=== PATIENT | male | born 1930 | race Caucasian/White ===

== ENCOUNTER 2017-01-07 10:41 | Inpatient (IN) | payer MEDICAID, MEDICARE ==
[2017-01-07 10:52] VITALS: BMI 25.8
--- NOTE | 2017-01-07 11:29 | ED PDOC ---
Arrival/HPI - General Time Seen by Provider: 01/07/17 11:05 Historian: Patient - History of Present Illness Narrative History of Present Illness (Text): 01/07/17 11:24 An 86 year old male with no known past medical history, presents to the Emergency department brought in by EMS for chest pain since this morning. Nitroglycerin and Aspirin were administered prior to arrival by EMS, patient states that his symptoms have been improving. Patient states that he has also been having abdominal discomfort. The patient denies fever, chills, shortness of breath, nausea, vomiting, diarrhea, dizziness or any other complaint. Time/Duration: Other (This morning) Symptom Onset: Sudden Symptom Course: Unchanged Activities at Onset: Rest, Light Context: Home Past Medical History - Provider Review Nursing Documentation Reviewed: Yes - Psychiatric Hx Depression: No Hx Emotional Abuse: No Hx Physical Abuse: No Hx Substance Use: No - Suicidal Assessment Feels Threatened In Home Enviroment: No Family/Social History - Physician Review Nursing Documentation Reviewed: Yes Family/Social History: No Known Family HX Hx Alcohol Use: No Hx Substance Use: No Hx Substance Use Treatment: No Allergies/Home Meds Allergies/Adverse Reactions: Allergies No Known Allergies Allergy (Verified 04/18/12 12:50) Home Medications: Home Meds Medication Instructions Recorded Confirmed Unobtainable 01/07/17 01/07/17 Physical Exam - Physical Exam Narrative Physical Exam (Text): - Review of Systems Constitutional: Normal. absent: Fatigue, Weight Change, Fevers Eyes: Normal ENT: Normal Respiratory: (+) SOB. absent: Cough, Sputum Cardiovascular: Normal absent: Chest pain, Palpitations, Syncope Gastrointestinal: (+) Abdominal pain. absent: Diarrhea, Nausea, Vomiting Genitourinary: Normal. absent: Dysuria, Frequency, Hematuria Musculoskeletal: Normal. absent: Arthralgias, Back Pain, Neck Pain Skin: Normal Neurological: Normal absent: Focal Weakness Endocrine: Normal Hemo/Lymphatic: Normal Psychiatric: Normal - Physical exam Patient appears age appropriate, speaking full sentences without difficulty - Systems Exam Head: Present: Atraumatic, Normocephalic Pupils: Present: PERRL Extraocular Muscles: Present: EOMI Conjunctiva: Present: Normal Mouth: Present: Moist Mucous Membranes Neck: Present: Normal Range of Motion. No: MIDLINE TENDERNESS, Paraspinal Tenderness Respiratory/Chest: Present: Clear to Auscultation, Good Air Exchange. No: Respiratory Distress, Accessory Muscle Use, Tachypnic Cardiovascular: Present: Regular Rate and Rhythm, Normal S1, S2, Peripheral Pulses Present. No: Murmurs Abdomen: Present: Normal Bowel Sounds, No: Tenderness, Peritoneal Signs, Rebound, Guarding, Distention Back: Present: Normal Inspection. No: Midline Tenderness, Paraspinal Tenderness Upper Extremity: Present: Normal Inspection. No: Cyanosis, Edema Lower Extremity: Present: Normal Inspection. No: Edema Neurological: Present: GCS=15, Speech Normal, cranial nerves II through XII fully intact with no cerebellar abnormality, neuro-sensory fully intact. No focal neurological deficits. Skin: Present: Warm, Dry, Normal Color. No: Rashes Lymphatic: Present: OX3, NI, NC Psychiatric: Present: Alert, Oriented x 3, Normal Insight, Normal Concentration 01/07/17 11:30 Vital Signs Reviewed: Yes Vital Signs Temp Pulse Pulse Resp BP BP Pulse Ox 01/07/17 13:12 172/93 H 01/07/17 12:49 71 17 172/93 H 96 01/07/17 11:38 67 157/88 H 01/07/17 11:05 99.3 F 73 17 154/83 H 96 Temperature: Afebrile Blood Pressure: Hypertensive Pulse: Regular Respiratory Rate: Normal Medical Decision Making ED Course and Treatment: 01/07/17 11:31 Impression: An 86 year old male brought in via EMS for shortness of breath since this morning and headache. On exam, no significant findings. Differential Diagnosis included but are not limited to: ACS vs. PNA Plan: -- Abdomen/Pelvis CT -- EKG -- Chest X-ray -- Labs -- Urinalysis -- Blood Culture -- Tylenol, Nitrostat, Duoneb, Lasix, Protonix, Rocephin, and Zithromax -- Reassess and disposition Prior Visits: Notes and results from previous visits were reviewed. Patient was last seen in the emergency department in 2011 for a fall Progress Notes: EKG: Ordered, reviewed, and independently interpreted the EKG. Rate : 70 BPM Rhythm : NSR Interpretation : PVCs 01/07/17 12:19 Chest X-ray: Cardiomegaly, vascular congestion, and poorly visualized costophrenic angles. Interpreted by me. 01/07/17 12:23: Case discussed with Dr. Patton who is on service. He asked for patient to be admitted to the hospitalist. 01/07/17 13:[address] Grzegorz Sawyer, accepted admission to [facility], chest pain and PNA CXR [employer] Director : Yvette Jorge MD HISTORY: Cough COMPARISON: 04/18/2012. FINDINGS: LUNGS: There is confluent airspace disease in both lower lobes. There is also mild pulmonary venous congestion. PLEURA: There are small pleural effusions. No pneumothorax. CARDIOVASCULAR: Normal. OSSEOUS STRUCTURES: No significant abnormalities. VISUALIZED UPPER ABDOMEN: Normal. OTHER FINDINGS: None. IMPRESSION: Findings are most compatible with bilateral lower lobe pneumonia. Also noted are small pleural effusions. Follow-up after medical management is recommended to ensure complete resolution. - Lab Interpretations Lab Results: 01/07/17 11:36 01/07/17 11:36 Lab Results 01/07/17 12:42: NT-Pro-B Natriuret Pep 941 H 01/07/17 11:36: Sodium 138, Potassium 4.3, Chloride 103, Carbon Dioxide 24, Anion Gap 15, BUN 17, Creatinine 1.3, Est GFR ( Amer) > 60, Est GFR (Non- Af Amer) 52, Random Glucose 103, Calcium 9.2, Total Bilirubin 0.5, AST 24, ALT 22, Alkaline Phosphatase 84, Lactate Dehydrogenase 222 L, Total Creatine Kinase 38, Troponin I < 0.01, Total Protein 8.0, Albumin 3.7, Globulin 4.3, Albumin/ Globulin Ratio 0.9 L 01/07/17 11:36: PT 11.8, INR 1.09 H, APTT 29.1 01/07/17 11:36: WBC 5.0, RBC 3.88, Hgb 11.3 L, Hct 34.8 L, MCV 89.7, MCH 29.1, MCHC 32.5, RDW 13.7, Plt Count 301, MPV 9.6, Gran % 52.5, Lymph % (Auto) 31.1, Bell % (Auto) 12.6 H, Eos % (Auto) 3.2, Baso % (Auto) 0.6, Gran # 2.62, Lymph # 1.6, Bell # 0.6, Eos # 0.2, Baso # 0.03 - RAD Interpretation Radiology Orders: 01/07/17 11:08 CHEST PORTABLE [RAD] Stat 01/07/17 11:28 ABD & PELVIS W/O PO OR IV CONT [CT] Stat - Medication Orders Current Medication Orders: Azithromycin (Zithromax 500mg In Ns) 500 mg in 250 mls @ 167 mls/hr IVPB STAT STA PRN Reason: Protocol Stop: 01/07/17 14:40 Pantoprazole Sodium (Protonix Ec Tab) 40 mg PO 0600,1600 JEMAL Discontinued Medications Acetaminophen (Tylenol 325mg Tab) 975 mg PO STAT STA Stop: 01/07/17 11:27 Last Admin: 01/07/17 12:37 Dose: 975 mg Albuterol/Ipratropium (Duoneb 3 Mg/0.5 Mg (3 Ml) Ud) 3 ml IH STAT STA Stop: 01/07/17 13:13 Last Admin: 01/07/17 13:54 Dose: 3 ml Furosemide (Lasix) 20 mg IVP STAT STA Stop: 01/07/17 12:19 Last Admin: 01/07/17 13:12 Dose: 20 mg Ceftriaxone Sodium (Rocephin 1 Gram Ivpb) 1 gm in 100 mls @ 200 mls/hr IV STAT STA PRN Reason: Protocol Stop: 01/07/17 13:40 Last Admin: 01/07/17 13:54 Dose: 200 mls/hr - Scribe Statement The provider has reviewed the documentation as recorded by the Annettaibe Zuleika Tolbert Provider Scribe Attestation: All medical record entries made by the Scribe were at my direction and personally dictated by me. I have reviewed the chart and agree that the record accurately reflects my personal performance of the history, physical exam, medical decision making, and the department course for this patient. I have also personally directed, reviewed, and agree with the discharge instructions and disposition. Disposition/Present on Arrival - Present on Arrival Any Indicators Present on Arrival: No History of DVT/PE: No History of Uncontrolled Diabetes: No Urinary Catheter: No History Surgical Site Infection Following: None - Disposition Have Diagnosis and Disposition been Completed?: Yes Diagnosis: Chest pain Disposition: HOSPITALIZED Disposition Time: 13:32 Patient Plan: Admission Patient Problems: Current Active Problems Problem Status Onset Chest pain Acute Condition: FAIR
[2017-01-07 11:40] LABS: BASO # 0.03 K/mm3 (0.0-2.0); BASO % 0.6 % (0.0-3.0); EOS # 0.2 (0.0-0.7); EOS % 3.2 % (1.5-5.0); GRAN # 2.62 (1.4-6.5); GRAN % 52.5 % (50.0-68.0); HEMATOCRIT 34.8 % (42.0-52.0); LYMPH # 1.6 (1.2-3.4); LYMPH % 31.1 % (22.0-35.0); MEAN CELL VOLUME 89.7 fl (80.0-105.0); MEAN CORPUSCULAR HEMOGLOBIN 29.1 pg (25.0-35.0); MEAN CORPUSCULAR HGB CONC 32.5 g/dl (31.0-37.0); MEAN PLATELET VOLUME 9.6 fl (7.0-11.0); MONO # 0.6 (0.1-0.6); MONO % 12.6 % (1.0-6.0); RED CELL DISTRIBUTION WIDTH 13.7 % (11.5-14.5)
[2017-01-07 11:50] LABS: ALB/GLOB RATIO 0.9 (1.1-1.8); ALKALINE PHOSPHATASE 84 U/L (38-133); ALT/SGPT 22 U/L (7-56); AST/SGOT 24 U/L (15-59); BILIRUBIN,TOTAL 0.5 mg/dL (0.2-1.3); BLOOD UREA NITROGEN 17 mg/dL (7-21); CALCIUM 9.2 mg/dL (8.4-10.5); CARBON DIOXIDE 24 mmol/L (21-33); CHLORIDE 103 mmol/L (98-107); GFR AFRICAN-AMERICAN > 60; GLUCOSE,RANDOM 103 mg/dL (70-110); POTASSIUM 4.3 mmol/L (3.6-5.0); SODIUM 138 mmol/L (132-148)
[2017-01-07 11:51] LABS: INR 1.09 (0.93-1.08); PARTIAL THROMBOPLASTIN TIME 29.1 Seconds (23.7-30.8)
[2017-01-07 12:03] LABS: TROPONIN I < 0.01 ng/mL
--- NOTE | 2017-01-07 12:27 | CT ---
PROCEDURE: CT Abdomen and Pelvis without intravenous contrast HISTORY: Abdominal pain COMPARISON: None. TECHNIQUE: CT scan of the abdomen and pelvis was performed without administration of intravenous contrast. Oral contrast was not administered. Coronal and sagittal reformatted images were obtained. Radiation dose: Total exam DLP = 981.88 mGy-cm. This CT exam was performed using one or more of the following dose reduction techniques: Automated exposure control, adjustment of the mA and/or kV according to patient size, and/or use of iterative reconstruction technique. FINDINGS: LOWER THORAX: There is extensive bronchiectasis in the lower lobes. LIVER: The liver is normal in size. No gross lesion or ductal dilatation. GALLBLADDER AND BILE DUCTS: There are no calcified gallstones. PANCREAS: The pancreas is normal in size. No gross lesion or ductal dilatation. SPLEEN: The spleen is normal in size. ADRENALS: Both adrenal glands are normal in size without discrete nodule. KIDNEYS AND URETERS: Both kidneys are normal in size. No hydronephrosis. No solid mass. There are multiple simple cysts in both kidneys, the largest exophytic cyst in the left upper pole measures 5.9 cm. VASCULATURE: There are atherosclerotic aortoiliac calcifications. No aortic aneurysm. BOWEL: The small bowel loops are normal in caliber. There is scattered colonic diverticulosis without CT evidence for acute diverticulitis. There is no bowel dilatation or obstruction. APPENDIX: Normal appendix. PERITONEUM: No free fluid. No free air. LYMPH NODES: No enlarged lymph nodes. BLADDER: The urinary bladder is well distended. There is 1.8 x 0.7 cm focal wall thickening along the left anterior lateral bladder wall. REPRODUCTIVE: There is mild enlargement of the prostate gland with median lobe hypertrophy. BONES: There is diffuse bone demineralization and advanced multilevel degenerative disc disease. There is a chronic superior endplate compression fracture deformity in the L1 vertebral body. OTHER FINDINGS: There is a small sliding hiatal hernia. IMPRESSION: 1. No acute abdominal or pelvic abnormality. Scattered colonic diverticulosis without CT evidence for acute diverticulitis. 2. 1.8 x 0.7 cm focal thickening of left anterior lateral urinary bladder wall is nonspecific, the differential considerations include neoplasm and focal cystitis. Cystoscopic correlation is advised. 3. Small sliding hiatal hernia. 4. Mild enlargement of the prostate gland with median lobe hypertrophy. Please correlate with PSA levels. 5. Extensive bronchiectasis in both lower lobes.
--- NOTE | 2017-01-07 12:43 | RAD ---
HISTORY: Cough COMPARISON: 04/18/2012. FINDINGS: LUNGS: There is confluent airspace disease in both lower lobes. There is also mild pulmonary venous congestion. PLEURA: There are small pleural effusions. No pneumothorax. CARDIOVASCULAR: Normal. OSSEOUS STRUCTURES: No significant abnormalities. VISUALIZED UPPER ABDOMEN: Normal. OTHER FINDINGS: None. IMPRESSION: Findings are most compatible with bilateral lower lobe pneumonia. Also noted are small pleural effusions. Follow-up after medical management is recommended to ensure complete resolution.
[2017-01-07] MEDS ORDERED: cefTRIAXone 1 gm 1 GM/100 ML BAG IV STA (13:11)
[2017-01-07] MEDS ORDERED: Azithromycin 500MG/NS 250ml 500 MG/250 ML BAG IVPB STA (13:11)
[2017-01-07] MEDS ORDERED: Albuterol-Ipratrop 3 mg / 0.5 (3 ml) UD IH STA (13:12)
[2017-01-07] MEDS ORDERED: Albuterol-Ipratrop 3 mg / 0.5 (3 ml) UD IH PRN (15:10)
[2017-01-07] MEDS: cefTRIAXone 1 gm 1 GM/100 ML BAG IVPB SCH (15:19)
[2017-01-07] MEDS: Azithromycin 500MG/NS 250ml 500 MG/250 ML BAG IVPB SCH (15:19)
--- NOTE | 2017-01-07 15:31 | CARD ---
APPROVED REPORT EKG Measurement Heart [id number] <Conclusion> Sinus rhythm with frequent premature ventricular complexes Possible Left atrial enlargement Borderline ECG
--- NOTE | 2017-01-07 15:32 | CP.PCM.HP ---
<SINDY TEE - Last Filed: 01/07/17 16:15> History of Present Illness - History of Present Illness History of Present Illness: CC: Stomach "burning" HPI: Mr. Vyas is an 86 year old [place] male with a past medical history of HTN and an umbilical hernia who presented the [facility] complaining of stomach "burning" for one weeks duration. He states that the burning sensation is intermittent with no radiation but is worse at night and has been preventing him from sleeping. He reports that it is not related to positional changes, eating or certain types of food. He denies any associated fever, chills, N/V, or diarrhea. Patient also endorses that he has had a productive cough of yellow phlegm for "years" that he reports is unchanged and unrelated to his chief complaint. He also endorses that he has had burning with urination and difficulty in stopping/starting his urinary stream for several years as well and , again, that this is unrelated to his chief complaint. He denies headache, changes in his vision, shortness of breath, pleurisy, chest pain, palpitations, numbness/tingling/weakness of any extremity and any new rash. In the ED, a chest x-ray showed bilateral lower lobe consilidation consistent with pneumonia as well as vascular congestion, an EKG showed NSR at 70 bpm with occasional PVC' s and a CT abdomen/pelvis showed an enlarged prostate and scattered diverticulosis without signs of diverticulitis. PMH: HTN and COPD PSH: Umbilical Hernia Repair Family: Denies Social: At least 20 year pack smoking history but quit 40 years ago, denies alcohol or illicit drug use, lives at home with his Allergies: NKDA Home Medications: As per MAR Present on Admission - Present on Admission Any Indicators Present on Admission: No Review of Systems - Review of Systems Review of Systems: Please refer to HPI Past Patient History - Past Social History Smoking Status: Unknown If Ever Smoked - CARDIAC Hx Cardiac Disorders: Yes Hx Hypertension: Yes - PULMONARY Hx Respiratory Disorders: No - NEUROLOGICAL Hx Neurological Disorder: No - HEENT Hx HEENT Problems: No - RENAL Hx Chronic Kidney Disease: No - ENDOCRINE/METABOLIC Hx Endocrine Disorders: Yes Hx Diabetes Mellitus Type 2: Yes - HEMATOLOGICAL/ONCOLOGICAL Hx Blood Disorders: No - INTEGUMENTARY Hx Dermatological Problems: No - MUSCULOSKELETAL/RHEUMATOLOGICAL Hx Musculoskeletal Disorders: No - GASTROINTESTINAL Hx Gastrointestinal Disorders: No - GENITOURINARY/GYNECOLOGICAL Hx Genitourinary Disorders: No - PSYCHIATRIC Hx Depression: No Hx Emotional Abuse: No Hx Physical Abuse: No Hx Substance Use: No - SURGICAL HISTORY Hx Surgeries: No - ANESTHESIA Hx Anesthesia: No Meds Home Medications: Home Medication List Medication Instructions Recorded Confirmed Type Albuterol/Ipratropium [Duoneb 3 3 ml IH [id number] 01/10/17 Rx mg/0.5 mg (3 ml) UD] Azithromycin [Zithromax] 250 mg PO DAILY #4 tab 01/10/17 Rx Azithromycin [Zithromax] 500 mg PO DAILY #1 tab 01/10/17 Rx Cefpodoxime [Vantin] 200 mg PO BID #20 tab 01/10/17 Rx Dicyclomine [Dicyclomine HCl] 10 mg PO DAILY #7 cap 01/10/17 Rx PrednisoLONE [PrednisoLONE Oral 20 mg PO DAILY #14 dose 01/10/17 Rx Soln] amLODIPine [Norvasc] 5 mg PO DAILY #14 tab 01/10/17 Rx Allergies/Adverse Reactions: Allergies Allergy/AdvReac Type Severity Reaction Status Date / Time No Known Allergies Allergy Verified 04/18/12 12:50 Physical Exam - Constitutional Appears: Non-toxic, No Acute Distress - Head Exam Head Exam: ATRAUMATIC, NORMOCEPHALIC - Eye Exam Eye Exam: EOMI, PERRL - ENT Exam ENT Exam: Mucous Membranes Moist, Normal Exam, Normal Oropharynx - Neck Exam Neck exam: Positive for: Full Rom, Normal Inspection. Negative for: Lymphadenopathy, Tenderness - Respiratory Exam Respiratory Exam: Rales, NORMAL BREATHING PATTERN. absent: Clear to Auscultation Bilateral, Prolonged Expiratory Phase, Rhonchi, Wheezes, Respiratory Distress, Stridor Additional comments: Bilateral rales in lower lobes - Cardiovascular Exam Cardiovascular Exam: REGULAR RHYTHM, RRR, +S1, +S2. absent: Tachycardia, Systolic Murmur - GI/Abdominal Exam GI & Abdominal Exam: Normal Bowel Sounds, Soft. absent: Diminished Bowel Sounds , Distended, Firm, Guarding, Tenderness - Exam Exam: absent: Bladder Distension - Extremities Exam Extremities exam: Positive for: normal capillary refill, normal inspection, pedal pulses present. Negative for: calf tenderness, pedal edema - Back Exam Back exam: NORMAL INSPECTION. absent: CVA tenderness (L), CVA tenderness (R), paraspinal tenderness, rash noted, tenderness, vertebral tenderness - Neurological Exam Neurological exam: Alert, Oriented x3 - Psychiatric Exam Psychiatric exam: Normal Affect, Normal Mood - Skin Skin Exam: Dry, Intact, Normal Color, Warm Results - Vital Signs Recent Vital Signs: Last Vital Signs Temp 99.3 F 01/07/17 11:05 Pulse 71 01/07/17 12:49 Resp 17 01/07/17 12:49 BP 172/93 H 01/07/17 13:12 Pulse Ox 96 01/07/17 12:49 - Labs Result Diagrams: 01/07/17 11:36 01/07/17 11:36 - EKG Data EKG Interpreted by: Myself EKG shows normal: Sinus rhythm Rate: Normal Assessment & Plan - Assessment and Plan (Free Text) Assessment: 86 year old [place] male with a past medical history of HTN and an umbilical hernia who presented the [facility] complaining of stomach "burning" for one weeks duration Plan: 1. Community Acquired Pneumonia -Chest X-Ray showed bilateral lower lobe pneumonia and small pleural effusions -CT abdomen/pelvis showed extensive bronchiectasis in bilateral lower lobes -started on Rocephin and Zithromax (Day 1) -Robitussin Q4H PRN for cough -Duonebs Q2H PRN for dyspnea -Tylenol 650mg Q6H PRN for fever over 100.4 -Procal, blood and sputum cultures pending -Afebrile, normotensive, non-tachycardic with no leukocytosis on admission -will continue to monitor for leukocytosis with daily CBC's 2. Chest Pain -EKG showed NSR at 70 BPM with occasional PVC's -three serial troponins ordered with the first being negative -repeat EKG in the morning and ECHO pending -heart healthy diet -A1C and TSH pending -PT/OT evaluation and treatment -placed on telemetry monitoring 3. Enlarged Prostate -CT abdomen/pelvis showed focal thickening of the anterior bladder wall and mild enlargement of median lobe of prostate gland -PSA pending -will recommend outpatient urology follow upon discharge 4. HTN -Hydralazine 10mg IV PRN Q6H for SBP over 170mmHG -continue to monitor with Q8H Vital Signs 5. GI/DVT Prophylaxis -Protonix/scd's Patient seen and case discussed with attending, Dr. Grzegorz Sawyer. - Date & Time Date: 01/07/17 Time: 15:36 Decision To Admit - Pt Status Changed To: Hospital Disposition Of: Inpatient Admission - Admit Certification Admit to Inpatient:: After my assessment, the patient will require hospitalization for at least two midnights. This is because of the severity of symptoms shown, intensity of services needed, and/or the medical risk in this patient being treated as an outpatient. - . Bed Request Type: Telemetry <Grzegorz Sawyer - Last Filed: 01/10/17 18:10> Results - Vital Signs Recent Vital Signs: Last Vital Signs Temp 98 F 01/10/17 16:00 Pulse 89 01/10/17 16:00 Resp 20 01/10/17 16:00 BP 126/84 01/10/17 16:00 Pulse Ox 97 01/10/17 16:00 - Labs Result Diagrams: 01/10/17 06:30 01/10/17 06:30 Labs: Laboratory Results - last 24 hr 01/10/17 01/10/17 01/10/17 06:30 06:30 07:08 WBC 6.3 RBC 3.92 Hgb 11.2 L Hct 35.6 L MCV 90.8 MCH 28.6 MCHC 31.5 RDW 14.0 Plt Count 278 MPV 9.5 Gran % 43.2 L Lymph % (Auto) 34.9 Starke % (Auto) 14.5 H Eos % (Auto) 7.1 H Baso % (Auto) 0.3 Gran # 2.74 Lymph # 2.2 Starke # 0.9 H Eos # 0.5 Baso # 0.02 Sodium 140 Potassium 4.1 Chloride 102 Carbon Dioxide 28 Anion Gap 14 BUN 23 H Creatinine 1.6 H Est GFR ( Amer) 50 Est GFR (Non-Af Amer) 41 POC Glucose (mg/dL) 97 Random Glucose 104 Calcium 8.8 Total Bilirubin 0.4 AST 28 ALT 21 Alkaline Phosphatase 72 Total Protein 7.7 Albumin 3.6 Globulin 4.1 Albumin/Globulin Ratio 0.9 L 01/10/17 01/10/17 11:13 16:18 WBC RBC Hgb Hct MCV MCH MCHC RDW Plt Count MPV Gran % Lymph % (Auto) Starke % (Auto) Eos % (Auto) Baso % (Auto) Gran # Lymph # Starke # Eos # Baso # Sodium Potassium Chloride Carbon Dioxide Anion Gap BUN Creatinine Est GFR ( Amer) Est GFR (Non-Af Amer) POC Glucose (mg/dL) 118 H 120 H Random Glucose Calcium Total Bilirubin AST ALT Alkaline Phosphatase Total Protein Albumin Globulin Albumin/Globulin Ratio Attending/Attestation - Attestation I have personally seen and examined this patient.: Yes I have fully participated in the care of the patient.: Yes I have reviewed all pertinent clinical information: Yes Notes (Text): I have seen and examined the patient at bedside. Agree with the above note with the following additions/ exceptions: Briefly this is 86 year old male with history of HTN, COPD, umbilical hernia repair who presented with chest pain and found to have CAP. Will start patient on Rocephin and zithro. Also has chest pain. Will monitor serial cardiac iso and ekg. CT also revealed prostate enlargement. Patient denies any BPH symptoms. Will recommend outpatient urology follow up. Upon discharge patient will follow up with PMD of choice. Dr Grzegorz Sawyer
[2017-01-07 15:34] LABS: THYROID STIMULATING HORMONE 2.03 mIU/mL (0.46-4.68)
[2017-01-07] MEDS: Pantoprazole 40 mg EC Tab PO SCH (16:58)
[2017-01-07 17:49] LABS: PROSTATE SPECIFIC ANTIGEN 0.6 ng/mL (0.00-2.5)
[2017-01-07 22:01] LABS: URINE BILIRUBIN NEGATIVE (NEGATIVE); URINE BLOOD TRACE-INTACT (NEGATIVE); URINE GLUCOSE (UA) NEGATIVE (NEGATIVE); URINE KETONE NEGATIVE (NEGATIVE); URINE LEUKOCYTE ESTERASE NEGATIVE Leu/uL (NEGATIVE); URINE PROTEIN NEGATIVE mg/dL (<30 mg/dL); URINE UROBILINOGEN 0.2 E.U./dL (<1 E.U./dL)
[2017-01-07 22:02] LABS: URINE APPEARANCE CLEAR (CLEAR); URINE COLOR LIGHT YELLOW (YELLOW)
[2017-01-07 22:24] LABS: URINE BACTERIA SMALL (NEG); URINE EPITHELIAL CELLS 0 - 2 /hpf (0-5); URINE WBC 0 - 2 /hpf (0-6)
[2017-01-07] MEDS ORDERED: DiphenhydrAMINE 12.5 mg/5 ml LIQ UD (5 ml) PO ONE (22:38)
[2017-01-08] MEDS: Pantoprazole 40 mg EC Tab PO SCH ×2 (05:25→15:31)
[2017-01-08 06:51] LABS: BASO # 0.02 K/mm3 (0.0-2.0); BASO % 0.2 % (0.0-3.0); EOS # 0.1 (0.0-0.7); EOS % 1.1 % (1.5-5.0); GRAN # 6.97 (1.4-6.5); GRAN % 71.1 % (50.0-68.0); HEMATOCRIT 36.3 % (42.0-52.0); LYMPH # 1.7 (1.2-3.4); LYMPH % 17.7 % (22.0-35.0); MEAN CELL VOLUME 89.4 fl (80.0-105.0); MEAN CORPUSCULAR HEMOGLOBIN 29.1 pg (25.0-35.0); MEAN CORPUSCULAR HGB CONC 32.5 g/dl (31.0-37.0); MEAN PLATELET VOLUME 9.8 fl (7.0-11.0); MONO % 9.9 % (1.0-6.0); RED CELL DISTRIBUTION WIDTH 13.9 % (11.5-14.5); WHITE BLOOD COUNT 9.8 10^3/ul (4.5-11.0)
[2017-01-08 06:52] LABS: ALB/GLOB RATIO 0.9 (1.1-1.8); BILIRUBIN,TOTAL 0.7 mg/dL (0.2-1.3); CALCIUM 9.3 mg/dL (8.4-10.5); POTASSIUM 4.4 mmol/L (3.6-5.0); TOTAL PROTEIN 8.2 g/dL (5.8-8.3)
[2017-01-08] MEDS: cefTRIAXone 1 gm 1 GM/100 ML BAG IVPB SCH (10:15)
[2017-01-08] MEDS: Azithromycin 500MG/NS 250ml 500 MG/250 ML BAG IVPB SCH (11:10)
--- NOTE | 2017-01-08 12:13 | CP.PCM.PN ---
Addendum entered and electronically signed by Laine Jameson DO 01/08/17 12:30: BUN/Cr. Elevated IVF NS 60cc/hr Addendum entered and electronically signed by Laine Jameson DO 01/08/17 12:28: Assessment: 86 year old [place] male with a past medical history of HTN and an umbilical hernia who presented [place] [facility] complaining of stomach "burning" for one weeks duration Plan: Diet: HHD 1. Community Acquired Pneumonia -Chest X-Ray showed bilateral lower lobe pneumonia and small pleural effusions -CT abdomen/pelvis showed extensive bronchiectasis in bilateral lower lobes -started on Rocephin and Zithromax (Day 1) -Robitussin Q4H PRN for cough -Duonebs Q2H PRN for dyspnea -Tylenol 650mg Q6H PRN for fever over 100.4 -Procal, blood and sputum cultures pending -Afebrile, normotensive, non-tachycardic with no leukocytosis on admission -will continue to monitor for leukocytosis with daily CBC's 2. Chest Pain, resolved -EKG showed NSR at 70 BPM with occasional PVC's -serial troponins-negative -repeat EKG in the morning and ECHO pending -heart healthy diet -A1C and TSH pending -PT/OT evaluation and treatment -placed on telemetry monitoring 01/08 f/u Echo final reading 3. Enlarged Prostate -CT abdomen/pelvis showed focal thickening of the anterior bladder wall and mild enlargement of median lobe of prostate gland -PSA pending -will recommend outpatient urology follow upon discharge 4. HTN -Hydralazine 10mg IV PRN Q6H for SBP over 170mmHG -continue to monitor with Q8H Vital Signs 5. GI/DVT Prophylaxis -Protonix/scd's d/w Dr. Mendoza Original Note: <Laine Jameson - Last Filed: 01/08/17 12:10> Subjective - Date & Time of Evaluation Date of Evaluation: 01/08/17 Time of Evaluation: 12:10 - Subjective Subjective: Progress note for Dr. Mendoza PT S&E at bedside. NAEON. Patient denies chest pain, difficulty breathing. Patient explained he is currently on IV antibiotics for pneumonia. Patient denies coughing. Patient states he's feeling better. Objective - Vital Signs/Intake and Output Vital Signs (last 24 hours): Temp Pulse Resp BP Pulse Ox 98.4 F 82 18 144/86 94 L 01/08/17 06:00 01/08/17 06:00 01/08/17 06:00 01/08/17 06:00 01/08/17 06:00 Intake and Output: 01/08/17 01/08/17 06:59 18:59 Intake Total 120 Output Total 550 Balance -430 - Medications Medications: Current Medications Acetaminophen (Tylenol 325mg Tab) 650 mg PO Q6H PRN PRN Reason: Fever >100.4 F Last Admin: 01/07/17 19:47 Dose: 650 mg Albuterol/Ipratropium (Duoneb 3 Mg/0.5 Mg (3 Ml) Ud) 3 ml IH Q2H PRN PRN Reason: Shortness of Breath Guaifenesin (Robitussin) 200 mg PO Q4H PRN PRN Reason: Cough and congestion Ceftriaxone Sodium (Rocephin 1 Gram Ivpb) 1 gm in 100 mls @ 100 mls/hr IVPB DAILY JEMAL PRN Reason: Protocol Last Admin: 01/07/17 15:19 Dose: Not Given Azithromycin (Zithromax 500mg In Ns) 500 mg in 250 mls @ 167 mls/hr IVPB DAILY JEMAL PRN Reason: Protocol Last Admin: 01/07/17 15:19 Dose: Not Given Sodium Chloride (Sodium Chloride 0.9%) 1,000 mls @ 60 mls/hr IV .[id number] [facility] Pantoprazole Sodium (Protonix Ec Tab) 40 mg PO 0600,1600 JEMAL Last Admin: 01/08/17 05:25 Dose: 40 mg - Labs Labs: 01/08/17 06:15 01/08/17 05:00 PT 11.8 Seconds (9.9-11.8) 01/07/17 11:36 INR 1.09 (0.93-1.08) H 01/07/17 11:36 APTT 29.1 Seconds (23.7-30.8) 01/07/17 11:36 - Constitutional Appears: Non-toxic, No Acute Distress - Head Exam Head Exam: NORMAL INSPECTION, NORMOCEPHALIC - Eye Exam Eye Exam: EOMI, Normal appearance - ENT Exam ENT Exam: Mucous Membranes Moist - Neck Exam Neck Exam: Full ROM - Respiratory Exam Respiratory Exam: Decreased Breath Sounds, Rales. absent: Accessory Muscle Use , Chest Wall Tenderness, Respiratory Distress Additional comments: decreased breath sounds in lower lungs - Cardiovascular Exam Cardiovascular Exam: absent: Bradycardia, Tachycardia Additional comments: Telemetry readings were bigeminy and R on T PVCs overnight - GI/Abdominal Exam GI & Abdominal Exam: Distended, Normal Bowel Sounds. absent: Tenderness, Rebound Additional comments: Patient denies pain on palpation - Extremities Exam Extremities Exam: Full ROM, Normal Inspection. absent: Joint Swelling, Pedal Edema - Neurological Exam Neurological Exam: Alert, Awake, Normal Gait, Oriented x3 - Psychiatric Exam Psychiatric exam: Normal Affect, Normal Mood - Skin Skin Exam: Dry, Normal Color, Warm <RejiAnwar A - Last Filed: 01/08/17 13:54> Objective - Vital Signs/Intake and Output Vital Signs (last 24 hours): Temp Pulse Resp BP Pulse Ox 98.3 F 79 20 132/80 94 L 01/08/17 12:00 01/08/17 12:00 01/08/17 12:00 01/08/17 12:00 01/08/17 06:00 Intake and Output: 01/08/17 01/08/17 06:59 18:59 Intake Total 120 Output Total 550 Balance -430 - Medications Medications: Current Medications Acetaminophen (Tylenol 325mg Tab) 650 mg PO Q6H PRN PRN Reason: Fever >100.4 F Last Admin: 01/07/17 19:47 Dose: 650 mg Albuterol/Ipratropium (Duoneb 3 Mg/0.5 Mg (3 Ml) Ud) 3 ml IH Q2H PRN PRN Reason: Shortness of Breath Guaifenesin (Robitussin) 200 mg PO Q4H PRN PRN Reason: Cough and congestion Hydralazine HCl (Apresoline) 10 mg PO QID PRN PRN Reason: Systolic Blood Pressure Ceftriaxone Sodium (Rocephin 1 Gram Ivpb) 1 gm in 100 mls @ 100 mls/hr IVPB DAILY JEMAL PRN Reason: Protocol Last Admin: 01/08/17 10:15 Dose: 100 mls/hr Azithromycin (Zithromax 500mg In Ns) 500 mg in 250 mls @ 167 mls/hr IVPB DAILY JEMAL PRN Reason: Protocol Last Admin: 01/08/17 11:10 Dose: 167 mls/hr Sodium Chloride (Sodium Chloride 0.9%) 1,000 mls @ 60 mls/hr IV .[id number] JEMAL Last Admin: 01/08/17 12:11 Dose: 60 mls/hr Pantoprazole Sodium (Protonix Ec Tab) 40 mg PO 0600,1600 JEMAL Last Admin: 01/08/17 05:25 Dose: 40 mg - Labs Labs: 01/08/17 06:15 01/08/17 05:00 PT 11.8 Seconds (9.9-11.8) 01/07/17 11:36 INR 1.09 (0.93-1.08) H 01/07/17 11:36 APTT 29.1 Seconds (23.7-30.8) 01/07/17 11:36 Attending/Attestation - Attestation I have personally seen and examined this patient.: Yes I have fully participated in the care of the patient.: Yes I have reviewed all pertinent clinical information, including history, physical exam and plan: Yes Notes (Text): 01/08/17 13:49 86 year old male with past medical history of hypertension who presented with complaint of chest pain and abdominal pain. CXR/CT showed bilateral lower lobe pneumonia and extensive bronchiectasis, focial bladder wall thickening and mild enlargement of the prostate gland. Patient is on iv antibiotics. Chest pain and abdominal pain have improved. Serial cardiac enzymes were negative. Echocardiogram and cardiology evaluation are pending. Will start on iv fluids for mild BISHNU. HCTZ/losartan are on hold. Will continue to monitor creatinine closely. Patient will need outpatient urology follow up on discharge. Jes Mendoza MD Hospitalist.
[2017-01-08] MEDS ORDERED: Sodium Chloride 0.9% 1,000 ML IV SCH (12:15)
--- NOTE | 2017-01-08 16:26 | CARD ---
APPROVED REPORT EXAM: Two-dimensional and M-mode echocardiogram with Doppler and color Doppler. INDICATION Chest Pain 2D DIMENSIONS IVSd1.1 (0.7-1.1cm)LVDd4.3 (3.9-5.9cm) LVOT Diameter1.8 (1.8-2.4cm)PWd1.0 (0.7-1.1cm) LVDs3.1 (2.5-4.0cm)FS (%) 27.8 % LVEF (%)54.3 (>50%) M-Mode DIMENSIONS Aortic Root3.40 (2.2-3.7cm)Aortic Cusp Exc.1.10 (1.5-2.0cm) Aortic Valve AoV Peak Smdkhjlm629.0cm/sAoV VTI54.1cmAO Peak GR.26mmHg LVOT Peak Khjmojfj700.5cm/sLVOT VTI31.20cmAO Mean GR.16mmHg CORTEZ (VMAX)1.39ja7TSS (VTI)1.41ie1VE P 1/2 Ocpi021vs Mitral Valve MV E Bttsfvxq74.2cm/sMV A Rrurmwjk547.0cm/sE/A ratio0.5 TDI Lateral E' Peak V6.34cm/sMedial E' Peak V4.58cm/sE/Lateral E'11.1 E/Medial E'15.3 Pulmonary Valve PV Peak Usjiyuxy26.3cm/sPV Peak Grad.3mmHg Tricuspid Valve TR Peak Relinxtl404fo/sRAP UXGAIJBA92woJmPP Peak Gr.36mmHg [id number] LEFT VENTRICLE The left ventricle is normal size. There is borderline concentric left ventricular hypertrophy. The left ventricular function is normal. The left ventricular ejection fraction is within the normal range. There is normal LV segmental wall motion. Transmitral Doppler flow pattern is Grade I-abnormal relaxation pattern. RIGHT VENTRICLE The right ventricle is normal size. There is normal right ventricular wall thickness. The right ventricular systolic function is normal. ATRIA The left atrium size is normal. The right atrium size is normal. AORTIC VALVE The aortic valve is moderately sclerotic. There is mild aortic regurgitation. There is mild valvular aortic stenosis. MITRAL VALVE The mitral valve is mildly thickened. There is no mitral valve regurgitation noted. TRICUSPID VALVE There is mild to moderate pulmonary hypertension. GREAT VESSELS The aortic root is normal in size. The IVC was not visualized. PERICARDIAL EFFUSION There is a small loculated anterior pericardial effusion. <Conclusion> The left ventricle is normal size. There is borderline concentric left ventricular hypertrophy. The left ventricular function is normal. The left ventricular ejection fraction is within the normal range. There is normal LV segmental wall motion. Transmitral Doppler flow pattern is Grade I-abnormal relaxation pattern. The aortic valve is moderately sclerotic. There is mild valvular aortic stenosis. There is mild aortic regurgitation. There is mild to moderate pulmonary hypertension.
--- NOTE | 2017-01-08 19:17 | CARD ---
APPROVED REPORT EKG Measurement Heart [id number] <Conclusion> Sinus rhythm with marked sinus arrhythmia with frequent premature ventricular complexes Possible Left atrial enlargement Borderline ECG
[2017-01-08] MEDS: DiphenhydrAMINE 12.5 mg/5 ml LIQ UD (5 ml) PO PRN (21:36)
[2017-01-09] MEDS: Pantoprazole 40 mg EC Tab PO SCH ×2 (05:13→17:13)
[2017-01-09] MEDS: guaiFENesin 200 mg/10 ml Syrup UD PO PRN ×2 (05:13→21:34)
[2017-01-09 06:12] LABS: BASO # 0.01 K/mm3 (0.0-2.0); BASO % 0.2 % (0.0-3.0); EOS # 0.5 (0.0-0.7); EOS % 6.9 % (1.5-5.0); GRAN # 3.18 (1.4-6.5); GRAN % 47.8 % (50.0-68.0); HEMATOCRIT 36.3 % (42.0-52.0); LYMPH # 2.2 (1.2-3.4); LYMPH % 32.6 % (22.0-35.0); MEAN CELL VOLUME 89.2 fl (80.0-105.0); MEAN CORPUSCULAR HEMOGLOBIN 28.7 pg (25.0-35.0); MEAN CORPUSCULAR HGB CONC 32.2 g/dl (31.0-37.0); MEAN PLATELET VOLUME 9.7 fl (7.0-11.0); MONO # 0.8 (0.1-0.6); MONO % 12.5 % (1.0-6.0); RED CELL DISTRIBUTION WIDTH 13.9 % (11.5-14.5); WHITE BLOOD COUNT 6.7 10^3/ul (4.5-11.0)
[2017-01-09 07:53] LABS: ALB/GLOB RATIO 0.9 (1.1-1.8); BILIRUBIN,TOTAL 0.6 mg/dL (0.2-1.3); CALCIUM 8.9 mg/dL (8.4-10.5); POTASSIUM 3.7 mmol/L (3.6-5.0); TOTAL PROTEIN 7.9 g/dL (5.8-8.3)
--- NOTE | 2017-01-09 08:02 | CP.PCM.DIS ---
Addendum entered and electronically signed by Laine Jameson DO 01/10/17 18:10: Written 01/10/17 18:10 Patient discharged 01/10/17 Original Note: <Laine Jameson - Last Filed: 01/10/17 18:03> Provider - Provider Date of Admission: 01/07/17 13:45 Attending physician: Jes Mendoza MD Primary care physician: NO PRIMARY CARE PROVIDER Consults: Package Wrapper: Dr. Courtney Montesology: Dr. Bach Time Spent in preparation of Discharge (in minutes): 35 Hospital Course - Lab Results Lab Results: Micro Results 01/07/17 15:05 Blood-Venous Blood Culture - Preliminary NO GROWTH AFTER 24 HOURS 01/07/17 14:40 Blood-Venous Blood Culture - Preliminary NO GROWTH AFTER 24 HOURS Most Recent Lab Values WBC 6.7 10^3/ul (4.5-11.0) D 01/09/17 05:50 RBC 4.07 10^6/uL (3.5-6.1) 01/09/17 05:50 Hgb 11.7 g/dL (14.0-18.0) L 01/09/17 05:50 Hct 36.3 % (42.0-52.0) L 01/09/17 05:50 MCV 89.2 fl (80.0-105.0) 01/09/17 05:50 MCH 28.7 pg (25.0-35.0) 01/09/17 05:50 MCHC 32.2 g/dl (31.0-37.0) 01/09/17 05:50 RDW 13.9 % (11.5-14.5) 01/09/17 05:50 Plt Count 295 10^3/uL (120.0-450.0) 01/09/17 05:50 MPV 9.7 fl (7.0-11.0) 01/09/17 05:50 Gran % 47.8 % (50.0-68.0) L 01/09/17 05:50 Lymph % (Auto) 32.6 % (22.0-35.0) 01/09/17 05:50 Henderson % (Auto) 12.5 % (1.0-6.0) H 01/09/17 05:50 Eos % (Auto) 6.9 % (1.5-5.0) H 01/09/17 05:50 Baso % (Auto) 0.2 % (0.0-3.0) 01/09/17 05:50 Gran # 3.18 (1.4-6.5) 01/09/17 05:50 Lymph # 2.2 (1.2-3.4) 01/09/17 05:50 Henderson # 0.8 (0.1-0.6) H 01/09/17 05:50 Eos # 0.5 (0.0-0.7) 01/09/17 05:50 Baso # 0.01 K/mm3 (0.0-2.0) 01/09/17 05:50 Corrected WBC (Man) Cancelled 01/08/17 06:15 Neutrophils % (Manual) Cancelled 01/08/17 06:15 Band Neutrophils % Cancelled 01/08/17 06:15 Lymphocytes % (Manual) Cancelled 01/08/17 06:15 Atypical Lymphs % Cancelled 01/08/17 06:15 Monocytes % (Manual) Cancelled 01/08/17 06:15 Eosinophils % (Manual) Cancelled 01/08/17 06:15 Basophils % (Manual) Cancelled 01/08/17 06:15 Metamyelocytes % Cancelled 01/08/17 06:15 Myelocytes % Cancelled 01/08/17 06:15 Promyelocytes % Cancelled 01/08/17 06:15 Nucleated RBC % Cancelled 01/08/17 06:15 Hypersegmented Polys Cancelled 01/08/17 06:15 Immature Lymphocytes Cancelled 01/08/17 06:15 Blast Cells Cancelled 01/08/17 06:15 Smudge Cells Cancelled 01/08/17 06:15 Toxic Granulation Cancelled 01/08/17 06:15 Dohle Bodies Cancelled 01/08/17 06:15 Marco Rods Cancelled 01/08/17 06:15 Platelet Evaluation Cancelled 01/08/17 06:15 Plt Clumps, EDTA Cancelled 01/08/17 06:15 Large Platelets Cancelled 01/08/17 06:15 Giant Platelets Cancelled 01/08/17 06:15 Polychromasia Cancelled 01/08/17 06:15 Hypochromasia Cancelled 01/08/17 06:15 Hyperchromasia Cancelled 01/08/17 06:15 Poikilocytosis (manual Cancelled 01/08/17 06:15 Basophilic Stippling Cancelled 01/08/17 06:15 Anisocytosis (manual) Cancelled 01/08/17 06:15 Microcytosis (manual) Cancelled 01/08/17 06:15 Macrocytosis (manual) Cancelled 01/08/17 06:15 Spherocytes Cancelled 01/08/17 06:15 Sickle Cells Cancelled 01/08/17 06:15 Target Cells Cancelled 01/08/17 06:15 Tear Drop Cells Cancelled 01/08/17 06:15 Ovalocytes Cancelled 01/08/17 06:15 Stomatocytes Cancelled 01/08/17 06:15 Helmet Cells Cancelled 01/08/17 06:15 Cicero Rings Cancelled 01/08/17 06:15 [place] Cells Cancelled 01/08/17 06:15 Acanthocytes (Spur) Cancelled 01/08/17 06:15 Rouleaux Cancelled 01/08/17 06:15 Schistocytes Cancelled 01/08/17 06:15 PT 11.8 Seconds (9.9-11.8) 01/07/17 11:36 INR 1.09 (0.93-1.08) H 01/07/17 11:36 APTT 29.1 Seconds (23.7-30.8) 01/07/17 11:36 Sodium 140 mmol/L (132-148) 01/09/17 05:30 Potassium 3.7 mmol/L (3.6-5.0) 01/09/17 05:30 Chloride 103 mmol/L (98-107) 01/09/17 05:30 Carbon Dioxide 26 mmol/L (21-33) 01/09/17 05:30 Anion Gap 15 (10-20) 01/09/17 05:30 BUN 20 mg/dL (7-21) 01/09/17 05:30 Creatinine 1.4 mg/dL (0.5-1.4) 01/09/17 05:30 Est GFR ( Amer) 58 01/09/17 05:30 Est GFR (Non-Af Amer) 48 01/09/17 05:30 POC Glucose (mg/dL) 105 mg/dL (65-110) 01/09/17 07:28 Random Glucose 97 mg/dL (70-110) 01/09/17 05:30 Hemoglobin A1c 5.8 % (4.2-6.5) 01/07/17 18:21 Calcium 8.9 mg/dL (8.4-10.5) 01/09/17 05:30 Total Bilirubin 0.6 mg/dL (0.2-1.3) 01/09/17 05:30 AST 29 U/L (15-59) 01/09/17 05:30 ALT 20 U/L (7-56) 01/09/17 05:30 Alkaline Phosphatase 81 U/L (38-133) 01/09/17 05:30 Lactate Dehydrogenase 222 U/L (333-699) L 01/07/17 11:36 Total Creatine Kinase 38 U/L (35-230) 01/07/17 11:36 Troponin I 0.02 ng/mL D 01/07/17 23:38 NT-Pro-B Natriuret Pep 941 pg/mL (0-450) H 01/07/17 12:42 Total Protein 7.9 g/dL (5.8-8.3) 01/09/17 05:30 Albumin 3.7 g/dL (3.0-4.8) 01/09/17 05:30 Globulin 4.2 gm/dL 01/09/17 05:30 Albumin/Globulin Ratio 0.9 (1.1-1.8) L 01/09/17 05:30 Lipase 57 U/L (23-300) 01/08/17 05:00 Prostate Specific Ag 0.6 ng/mL (0.00-2.5) 01/07/17 14:40 Procalcitonin < 0.05 NG/ML (0.19-0.49) L 01/07/17 15:30 TSH 3rd Generation 2.03 mIU/mL (0.46-4.68) 01/07/17 14:40 Urine Color Light yellow (YELLOW) 01/07/17 21:30 Urine Appearance Clear (CLEAR) 01/07/17 21:30 Urine pH 6.0 (4.7-8.0) 01/07/17 21:30 Ur Specific Howes 1.010 (1.005-1.035) 01/07/17 21:30 Urine Protein Negative mg/dL (<30 mg/dL) 01/07/17 21:30 Urine Glucose (UA) Negative mg/dL (NEGATIVE) 01/07/17 21:30 Urine Ketones Negative mg/dL (NEGATIVE) 01/07/17 21:30 Urine Blood Trace-intact (NEGATIVE) H 01/07/17 21:30 Urine Nitrate Negative (NEGATIVE) 01/07/17 21:30 Urine Bilirubin Negative (NEGATIVE) 01/07/17 21:30 Urine Urobilinogen 0.2 E.U./dL (<1 E.U./dL) 01/07/17 21:30 Ur Leukocyte Esterase Negative Herson/uL (NEGATIVE) 01/07/17 21:30 Urine RBC 5 - 10 /hpf (0-2) 01/07/17 21:30 Urine WBC 0 - 2 /hpf (0-6) 01/07/17 21:30 Ur Epithelial Cells 0 - 2 /hpf (0-5) 01/07/17 21:30 Urine Bacteria Small (NEG) 01/07/17 21:30 Hyaline Casts 0 - 2 /hpf 01/07/17 21:30 - Hospital Course Hospital Course: 86M, Maori speaking [place] PMH HTN and an umbilical hernia repair presented the [facility] complaining of stomach "burning" for one weeks duration. Burning sensation is intermittent with no radiation, worse at night and has been preventing him from sleeping He denies any associated fever, chills, N/V, or diarrhea. Patient he has had a productive cough of yellow phlegm for "years" that he reports is unchanged and unrelated to his chief complaint. He also endorses that he has had burning with urination and difficulty in stopping/starting his urinary stream for several years as well and, again, that this is unrelated to his chief complaint. He denies headache, changes in his vision, shortness of breath, pleurisy, chest pain, palpitations, numbness/tingling/weakness of any extremity and any new rash. In the ED, a chest x-ray showed bilateral lower lobe consilidation consistent with pneumonia as well as vascular congestion, an EKG showed NSR at 70 bpm with occasional PVC's and a CT abdomen/pelvis showed an enlarged prostate and scattered diverticulosis without signs of diverticulitis. 01/08 CT Chest: severe pulmonary fibrosis with large cystic air spaces in lower lobes, right middle lobe and inferior portion of right middle lobe 01/08 Echo: 54.3 % EF 01/08 EK bpm Sinus arrhythmia, PVCs 01/07 EK bpm Sinus Rhythm, PVC 01/07 CT ABdomen/Pelvis: 1.8x 0.7 focal thickening of left anterior lateral urinary bladder wall. consider neoplasm and focal cystitis. , small sliding hiatal hernia. mild enlargement of prostate gland with median lobe hypertrophy. extensive bronchiectasis in both lower lobes. scattered colonic diverticulosis without CT evidence for acute diverticulitis. PT was S&E at bedside today. No acute events overnight. Patient was given Bentyl for his discomfort with his bowels. During his stay, patient developed piriformis muscle spasms and was given Flexeril, which the issue resolved. Patient was given Norvasc 5mg POQD to follow up with primary care doctor for blood pressure control. BUN/Cr was elevated during stay. Fluids were given. Patient was instructed to follow up with meeting/event planner. Per showcase maker: DC home with services when stable. Please see MAR for further information. 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 states that this is a chronic issue - ENT Exam ENT Exam: Mucous Membranes Moist - Neck Exam Neck exam: Full Rom - Respiratory Exam Respiratory Exam: NORMAL BREATHING PATTERN. absent: Accessory Muscle Use, Respiratory Distress - Cardiovascular Exam Cardiovascular Exam: REGULAR RHYTHM - GI/Abdominal Exam GI & Abdominal Exam: Distended, Hypoactive Bowel Sounds, Soft. absent: Firm, Guarding, Tenderness - Extremities Exam Extremities exam: normal capillary refill, pedal pulses present Additional comments: no edema - Back Exam Back exam: FULL ROM. absent: muscle spasm - Neurological Exam Neurological exam: Alert, Normal Gait, Oriented x3 - Psychiatric Exam Psychiatric exam: Normal Affect, Normal Mood - Skin Skin Exam: Dry, Normal Color, Warm Discharge Plan - Discharge Medications Prescriptions: Albuterol/Ipratropium [Duoneb 3 mg/0.5 mg (3 ml) UD] 3 ml IH [id number] amLODIPine [Norvasc] 5 mg PO DAILY #14 tab Azithromycin [Zithromax] 250 mg PO DAILY #4 tab Azithromycin [Zithromax] 500 mg PO DAILY #1 tab Cefpodoxime [Vantin] 200 mg PO BID #20 tab Dicyclomine [Dicyclomine HCl] 10 mg PO DAILY #7 cap PrednisoLONE [PrednisoLONE Oral Soln] 20 mg PO DAILY #14 dose - Follow Up Plan Condition: FAIR Disposition: HOME/ ROUTINE Instructions: Chest Pain (DC), Chest Pain (GEN), Pneumonia (DC) Additional Instructions: Maori translation for the following instructions via web knitter: 1. follow up with Dr. Farrell in one week (evaluation of lung function, elevated BUN/Cr) 2. stay hydrated, continue to eat, and maintain healthy diet 3.take antibiotics 1)Azithromycin 500mg POQ once. 2)Take Azithromycin 250mg POQD for 4 days (start the day after finishing Azithromycin 500mg POQ once) 3) Take Vantin 200 mg PO BID for 10 days (start the same day as Azithromycin 500mg POQ once) 4. continue with home medications. Do not take losartan/hydrochlorothiazide until DR. Farrell has assessed kidney function and hypertension 5. start amlodipine 5mg POQD, monitor blood pressure. hold if blood pressure is below 110 systolic continue antibiotics and inhaled bronchodilator 6. PO Bronchodilator 7. schedule for PFT (pulmonary function test) outpatient with Package Wrapper 8. schedule Sleep study as outpatient 9. continue exercise and physical therapy 10. follow up with urologist outpatient in 1 week for BPH (prostate), follow up with meeting/event planner in 1 week for BUN/Cr elevation Referrals: PCPADITHYA [Primary Care Provider] - Follow up with primary <Jes Mendoza - Last Filed: 01/11/17 09:24> Provider - Provider Date of Admission: 01/07/17 13:45 Attending physician: Jes Mendoza MD Primary care physician: ADITHYA PRIMARY CARE PROVIDER Hospital Course - Lab Results Lab Results: Micro Results 01/07/17 15:05 Blood-Venous Blood Culture - Preliminary NO GROWTH AFTER 3 DAYS 01/07/17 14:40 Blood-Venous Blood Culture - Preliminary NO GROWTH AFTER 3 DAYS 01/07/17 21:30 Urine,Clean Catch Urine Culture - Final No Growth (<1,000 CFU/ML) Most Recent Lab Values WBC 6.3 10^3/ul (4.5-11.0) 01/10/17 06:30 RBC 3.92 10^6/uL (3.5-6.1) 01/10/17 06:30 Hgb 11.2 g/dL (14.0-18.0) L 01/10/17 06:30 Hct 35.6 % (42.0-52.0) L 01/10/17 06:30 MCV 90.8 fl (80.0-105.0) 01/10/17 06:30 MCH 28.6 pg (25.0-35.0) 01/10/17 06:30 MCHC 31.5 g/dl (31.0-37.0) 01/10/17 06:30 RDW 14.0 % (11.5-14.5) 01/10/17 06:30 Plt Count 278 10^3/uL (120.0-450.0) 01/10/17 06:30 MPV 9.5 fl (7.0-11.0) 01/10/17 06:30 Gran % 43.2 % (50.0-68.0) L 01/10/17 06:30 Lymph % (Auto) 34.9 % (22.0-35.0) 01/10/17 06:30 Henderson % (Auto) 14.5 % (1.0-6.0) H 01/10/17 06:30 Eos % (Auto) 7.1 % (1.5-5.0) H 01/10/17 06:30 Baso % (Auto) 0.3 % (0.0-3.0) 01/10/17 06:30 Gran # 2.74 (1.4-6.5) 01/10/17 06:30 Lymph # 2.2 (1.2-3.4) 01/10/17 06:30 Henderson # 0.9 (0.1-0.6) H 01/10/17 06:30 Eos # 0.5 (0.0-0.7) 01/10/17 06:30 Baso # 0.02 K/mm3 (0.0-2.0) 01/10/17 06:30 Corrected WBC (Man) Cancelled 01/08/17 06:15 Neutrophils % (Manual) Cancelled 01/08/17 06:15 Band Neutrophils % Cancelled 01/08/17 06:15 Lymphocytes % (Manual) Cancelled 01/08/17 06:15 Atypical Lymphs % Cancelled 01/08/17 06:15 Monocytes % (Manual) Cancelled 01/08/17 06:15 Eosinophils % (Manual) Cancelled 01/08/17 06:15 Basophils % (Manual) Cancelled 01/08/17 06:15 Metamyelocytes % Cancelled 01/08/17 06:15 Myelocytes % Cancelled 01/08/17 06:15 Promyelocytes % Cancelled 01/08/17 06:15 Nucleated RBC % Cancelled 01/08/17 06:15 Hypersegmented Polys Cancelled 01/08/17 06:15 Immature Lymphocytes Cancelled 01/08/17 06:15 Blast Cells Cancelled 01/08/17 06:15 Smudge Cells Cancelled 01/08/17 06:15 Toxic Granulation Cancelled 01/08/17 06:15 Dohle Bodies Cancelled 01/08/17 06:15 Marco Rods Cancelled 01/08/17 06:15 Platelet Evaluation Cancelled 01/08/17 06:15 Plt Clumps, EDTA Cancelled 01/08/17 06:15 Large Platelets Cancelled 01/08/17 06:15 Giant Platelets Cancelled 01/08/17 06:15 Polychromasia Cancelled 01/08/17 06:15 Hypochromasia Cancelled 01/08/17 06:15 Hyperchromasia Cancelled 01/08/17 06:15 Poikilocytosis (manual Cancelled 01/08/17 06:15 Basophilic Stippling Cancelled 01/08/17 06:15 Anisocytosis (manual) Cancelled 01/08/17 06:15 Microcytosis (manual) Cancelled 01/08/17 06:15 Macrocytosis (manual) Cancelled 01/08/17 06:15 Spherocytes Cancelled 01/08/17 06:15 Sickle Cells Cancelled 01/08/17 06:15 Target Cells Cancelled 01/08/17 06:15 Tear Drop Cells Cancelled 01/08/17 06:15 Ovalocytes Cancelled 01/08/17 06:15 Stomatocytes Cancelled 01/08/17 06:15 Helmet Cells Cancelled 01/08/17 06:15 Cicero Rings Cancelled 01/08/17 06:15 John Cells Cancelled 01/08/17 06:15 Acanthocytes (Spur) Cancelled 01/08/17 06:15 Rouleaux Cancelled 01/08/17 06:15 Schistocytes Cancelled 01/08/17 06:15 PT 11.8 Seconds (9.9-11.8) 01/07/17 11:36 INR 1.09 (0.93-1.08) H 01/07/17 11:36 APTT 29.1 Seconds (23.7-30.8) 01/07/17 11:36 Sodium 140 mmol/L (132-148) 01/10/17 06:30 Potassium 4.1 mmol/L (3.6-5.0) 01/10/17 06:30 Chloride 102 mmol/L (98-107) 01/10/17 06:30 Carbon Dioxide 28 mmol/L (21-33) 01/10/17 06:30 Anion Gap 14 (10-20) 01/10/17 06:30 BUN 23 mg/dL (7-21) H 01/10/17 06:30 Creatinine 1.6 mg/dL (0.5-1.4) H 01/10/17 06:30 Est GFR ( Amer) 50 01/10/17 06:30 Est GFR (Non-Af Amer) 41 01/10/17 06:30 POC Glucose (mg/dL) 120 mg/dL (65-110) H 01/10/17 16:18 Random Glucose 104 mg/dL (70-110) 01/10/17 06:30 Hemoglobin A1c 5.8 % (4.2-6.5) 01/07/17 18:21 Calcium 8.8 mg/dL (8.4-10.5) 01/10/17 06:30 Magnesium 1.8 mg/dL (1.7-2.2) 01/09/17 09:08 Total Bilirubin 0.4 mg/dL (0.2-1.3) 01/10/17 06:30 AST 28 U/L (15-59) 01/10/17 06:30 ALT 21 U/L (7-56) 01/10/17 06:30 Alkaline Phosphatase 72 U/L (38-133) 01/10/17 06:30 Lactate Dehydrogenase 222 U/L (333-699) L 01/07/17 11:36 Total Creatine Kinase 38 U/L (35-230) 01/07/17 11:36 Troponin I 0.02 ng/mL D 01/07/17 23:38 NT-Pro-B Natriuret Pep 941 pg/mL (0-450) H 01/07/17 12:42 Total Protein 7.7 g/dL (5.8-8.3) 01/10/17 06:30 Albumin 3.6 g/dL (3.0-4.8) 01/10/17 06:30 Globulin 4.1 gm/dL 01/10/17 06:30 Albumin/Globulin Ratio 0.9 (1.1-1.8) L 01/10/17 06:30 Lipase 57 U/L (23-300) 01/08/17 05:00 Prostate Specific Ag 0.6 ng/mL (0.00-2.5) 01/07/17 14:40 Procalcitonin < 0.05 NG/ML (0.19-0.49) L 01/07/17 15:30 TSH 3rd Generation 2.03 mIU/mL (0.46-4.68) 01/07/17 14:40 Urine Color Light yellow (YELLOW) 01/07/17 21:30 Urine Appearance Clear (CLEAR) 01/07/17 21:30 Urine pH 6.0 (4.7-8.0) 01/07/17 21:30 Ur Specific Howes 1.010 (1.005-1.035) 01/07/17 21:30 Urine Protein Negative mg/dL (<30 mg/dL) 01/07/17 21:30 Urine Glucose (UA) Negative mg/dL (NEGATIVE) 01/07/17 21:30 Urine Ketones Negative mg/dL (NEGATIVE) 01/07/17 21:30 Urine Blood Trace-intact (NEGATIVE) H 01/07/17 21:30 Urine Nitrate Negative (NEGATIVE) 01/07/17 21:30 Urine Bilirubin Negative (NEGATIVE) 01/07/17 21:30 Urine Urobilinogen 0.2 E.U./dL (<1 E.U./dL) 01/07/17 21:30 Ur Leukocyte Esterase Negative Herson/uL (NEGATIVE) 01/07/17 21:30 Urine RBC 5 - 10 /hpf (0-2) 01/07/17 21:30 Urine WBC 0 - 2 /hpf (0-6) 01/07/17 21:30 Ur Epithelial Cells 0 - 2 /hpf (0-5) 01/07/17 21:30 Urine Bacteria Small (NEG) 01/07/17 21:30 Hyaline Casts 0 - 2 /hpf 01/07/17 21:30 Attending/Attestation - Attestation I have personally seen and examined this patient.: Yes I have fully participated in the care of the patient.: Yes I have reviewed all pertinent clinical information, including history, physical exam and plan: Yes Notes (Text): DC SUMMARY for 01/10/17 86 year old male with past medical history of hypertension who presented with complaint of chest pain and abdominal pain which have resolved. Serial cardiac enyzmes were negative and ACS was ruled out. CXR/CT showed bilateral lower lobe pneumonia and extensive bronchiectasis, focal bladder wall thickening and mild enlargement of the prostate gland and CT chest showed severe pulmonary fibrosis. Patient was on antibiotics, steroids and duonebs. He was seen by cardiology and pulmonary who recommended outpatient PFTs. Patient has mild renal insufficiency. His HCTZ/losartan were held and he is started on norvasc for hypertension. Recommended outpatient nephrology and urology follow up. Patient is discharged home today to follow up with his pmd. Follow up with operators teacher for PFTs. Follow up with urology and nephrology to monitor kidney function closely. Jes Mendoza MD Hospitalist.
--- NOTE | 2017-01-09 08:46 | CON ---
DATE: REASON FOR CONSULTATION: Chest pain as well as shortness of breath and abdominal pain. HISTORY OF PRESENT ILLNESS: The patient is an 86 years old Filipino male who is unaware of any prior history of heart attack in the past according to him and his , because of feeling hot and sweaty at night as well as shortness of breath and abdominal discomfort. The patient according to the has no ability to walk independently and he at times try to use a walker and no recent history of falls. The patient's cognitive function is preserved according to the patient's . SOCIAL HISTORY: The patient is not a smoker. He lives with his as he has no homemaker. MEDICATIONS: Hydralazine 10 mg q.i.d., albuterol inhaler q.2h. p.r.n., Flexeril 5 mg twice a day, Protonix 40 mg p.o. twice a day, Rocephin 1 g intravenously daily, normal saline at 50 mL an hour, Zithromax 500 mg intravenously daily. 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 REVIEW OF SYSTEMS: The reports to me that the patient has major discharge, foul smelling, and she attributed that to being coming from the right eye socket. PHYSICAL EXAMINATION: GENERAL: The patient is an elderly male who does not appear to be in acute distress. VITAL SIGNS: Blood pressure 138/88, heart rate 78, temperature 98.8, respirations 20. HEENT: Right eye prosthesis. NECK: No JVD. CHEST: Diffuse bilateral coarse crepitations. HEART: S1 and S2 regular. ABDOMEN: Soft. EXTREMITIES: 1+ pitting edema. DATA: SMA-7 is within normal limits except for creatinine of 1.5. Three sets of troponins are not elevated. TSH level is within normal limit. ProBNP is 941. INR is 1.09, PTT 29.1. Hemoglobin and hematocrit 11.8 and 36.3. White count and platelet count are within normal limits. Abdomen and pelvic CT scan, no acute abdominal or pelvic abnormalities, status colonic diverticulosis without CT evidence of acute diverticulitis. Focal thickening of the left anterior lateral urinary bladder wall is not specific. Differential diagnosis include neoplasm and focal cystitis. is advised. Small slight hernia, mild enlargement of the prostate, extensive bronchiectasis in both lower lobes. Chest x-ray reveals cardiomegaly with [id number] CHF, possible bilateral pleural effusion. EKG reveal sinus rhythm with frequent PVCs, possible left atrial enlargement. Echocardiography revealed concentric LVH with normal systolic function, moderate sclerotic arterial valve with mild aortic insufficiency and mild aortic stenosis. [id number] pulmonary hypertension. Reduced compliance. ASSESSMENT: 1. Consider bilateral pneumonia. 2. Bilateral bronchiectasis. 3. Rule out underlying pleural effusion. 4. Frequent ventricular ectopy. 5. Hypertension. RECOMMENDATIONS: Continue current bronchodilators. Continue hydralazine at 10 mg q.i.d., IV Rocephin 1 gram daily, IV Zithromax 500 mg daily. Discontinue IV fluid. Start Lasix 20 mg intravenously daily. Obtain chest CT scan without contrast. The patient although has frequent PVCs, he is not a good candidate for beta-blockers from the pulmonary point of view. We will obtain magnesium level. Start subcutaneous Lovenox at 40 mg daily. Octavio Bach MD
--- NOTE | 2017-01-09 10:27 | CT ---
PROCEDURE: CT Chest without contrast HISTORY: brochiectasis COMPARISON: CT of the abdomen 01/07/2017 TECHNIQUE: Contiguous axial images were obtained through the chest without intravenous contrast enhancement. Sagittal and coronal reconstructions were performed. Radiation dose (DLP): mGy-cm. This CT exam was performed using one or more of the following dose reduction techniques: Automated exposure control, adjustment of the mA and/or kV according to patient size, and/or use of iterative reconstruction technique. FINDINGS: LUNGS: There is severe pulmonary fibrosis at both lung bases with large cystic air spaces. This also involves the right middle lobe and a portion of the right upper lobe. MEDIASTINUM: Unremarkable thoracic aorta. No aneurysm. Coronary artery calcifications Main pulmonary artery unremarkable. No vascular congestion. No lymphadenopathy. PLEURA: No pleural fluid. No pneumothorax. BONES: No fracture. No destructive lesion. UPPER ABDOMEN: Grossly unremarkable. OTHER FINDINGS: Mild aortic tortuosity IMPRESSION: Severe pulmonary fibrosis with large cystic air spaces in both lower lobes, right middle lobe in the inferior portion of the right upper lobe.
[2017-01-09] MEDS: Enoxaparin 30 mg Syringe SC SCH (10:59)
[2017-01-09] MEDS: cefTRIAXone 1 gm 1 GM/100 ML BAG IVPB SCH (10:59)
[2017-01-09] MEDS: Azithromycin 500MG/NS 250ml 500 MG/250 ML BAG IVPB SCH (12:35)
--- NOTE | 2017-01-09 15:46 | CP.PCM.PN ---
<GisellLaine - Last Filed: 01/09/17 16:26> Subjective - Date & Time of Evaluation Date of Evaluation: 01/09/17 Time of Evaluation: 15:44 - Subjective Subjective: Internal Medicine Progress notes for Dr. Mendoza: PT S&E bedside. ARNOLDO. Patient has no complaints today and wants to go home. The takes care of patient at home. Patient denies F/C, N/V, Abdominal pain. Objective - Vital Signs/Intake and Output Vital Signs (last 24 hours): Temp Pulse Resp BP Pulse Ox 97.5 F L 62 18 155/82 H 95 01/09/17 11:38 01/09/17 11:38 01/09/17 11:38 01/09/17 11:38 01/09/17 05:49 Intake and Output: 01/09/17 01/09/17 06:59 18:59 Intake Total 240 Output Total 1100 Balance -860 - Medications Medications: Current Medications Acetaminophen (Tylenol 325mg Tab) 650 mg PO Q6H PRN PRN Reason: Fever >100.4 F Last Admin: 01/07/17 19:47 Dose: 650 mg Albuterol/Ipratropium (Duoneb 3 Mg/0.5 Mg (3 Ml) Ud) 3 ml IH Q2H PRN PRN Reason: Shortness of Breath Albuterol/Ipratropium (Duoneb 3 Mg/0.5 Mg (3 Ml) Ud) 3 ml IH [id number] JEMAL Cyclobenzaprine HCl (Flexeril) 5 mg PO BID PRN PRN Reason: Muscle spasm Last Admin: 01/09/17 05:13 Dose: 5 mg Diphenhydramine HCl (Benadryl) 12.5 mg PO HS PRN PRN Reason: Insomnia Last Admin: 01/08/17 21:36 Dose: 12.5 mg Enoxaparin Sodium (Lovenox) 30 mg SC DAILY JEMAL PRN Reason: Protocol Last Admin: 01/09/17 10:59 Dose: 30 mg Furosemide (Lasix) 20 mg IVP DAILY JEMAL Last Admin: 01/09/17 11:01 Dose: 20 mg Guaifenesin (Robitussin) 200 mg PO Q4H PRN PRN Reason: Cough and congestion Last Admin: 01/09/17 05:13 Dose: 200 mg Hydralazine HCl (Apresoline) 10 mg PO QID PRN PRN Reason: Systolic Blood Pressure Ceftriaxone Sodium (Rocephin 1 Gram Ivpb) 1 gm in 100 mls @ 100 mls/hr IVPB DAILY [facility] PRN Reason: Protocol Last Admin: 01/09/17 10:59 Dose: 100 mls/hr Azithromycin (Zithromax 500mg In Ns) 500 mg in 250 mls @ 167 mls/hr IVPB DAILY [facility] PRN Reason: Protocol Last Admin: 01/09/17 12:35 Dose: 167 mls/hr Pantoprazole Sodium (Protonix Ec Tab) 40 mg PO 0600,1600 [facility] Last Admin: 01/09/17 05:13 Dose: 40 mg Prednisolone (Prednisolone Oral Soln) 20 mg PO DAILY [facility] - Labs Labs: 01/09/17 05:50 01/09/17 05:30 PT 11.8 Seconds (9.9-11.8) 01/07/17 11:36 INR 1.09 (0.93-1.08) H 01/07/17 11:36 APTT 29.1 Seconds (23.7-30.8) 01/07/17 11:36 - Constitutional Appears: Non-toxic, No Acute Distress - Head Exam Head Exam: NORMAL INSPECTION, NORMOCEPHALIC - Eye Exam Eye Exam: EOMI, Normal appearance - ENT Exam ENT Exam: Mucous Membranes Moist, Normal Exam. absent: Mucous Membranes Dry - Neck Exam Neck Exam: Full ROM, Normal Inspection. absent: Tenderness - Respiratory Exam Respiratory Exam: NORMAL BREATHING PATTERN. absent: Accessory Muscle Use, Respiratory Distress - Cardiovascular Exam Cardiovascular Exam: REGULAR RHYTHM. absent: Bradycardia, Tachycardia - GI/Abdominal Exam GI & Abdominal Exam: Soft, Normal Bowel Sounds. absent: Tenderness, Hyperactive Bowel Sounds, Hypoactive Bowel Sounds - Rectal Exam Rectal Exam: NORMAL INSPECTION - Extremities Exam Extremities Exam: Full ROM. absent: Pedal Edema, Tenderness Assessment and Plan - Assessment and Plan (Free Text) Assessment: 86 year old [place]i male with a past medical history of HTN and an umbilical hernia who presented the [facility] ED complaining of stomach "burning" for one weeks duration Plan: Plan: Diet: HHD Pulm Consult Dr. Valdez: Swallow Eval and Treat. OOBTC 1. Community Acquired Pneumonia -Chest X-Ray showed bilateral lower lobe pneumonia and small pleural effusions -CT abdomen/pelvis showed extensive bronchiectasis in bilateral lower lobes -started on Rocephin and Zithromax (Day 1) -Robitussin Q4H PRN for cough -Duonebs Q2H PRN for dyspnea -Tylenol 650mg Q6H PRN for fever over 100.4 -Procal, blood and sputum cultures pending -Afebrile, normotensive, non-tachycardic with no leukocytosis on admission -will continue to monitor for leukocytosis with daily CBC's 2. Chest Pain, resolved -EKG showed NSR at 70 BPM with occasional PVC's -serial troponins-negative -repeat EKG in the morning and ECHO pending -heart healthy diet -A1C and TSH pending -PT/OT evaluation and treatment -placed on telemetry monitoring 01/08 f/u Echo final reading 3. Enlarged Prostate -CT abdomen/pelvis showed focal thickening of the anterior bladder wall and mild enlargement of median lobe of prostate gland -PSA pending -will recommend outpatient urology follow upon discharge 4. HTN -Hydralazine 10mg IV PRN Q6H for SBP over 170mmHG -continue to monitor with Q8H Vital Signs 5. GI/DVT Prophylaxis -Protonix/scd's d/w Dr. Mendoza <Jes Mendoza - Last Filed: 01/09/17 16:40> Objective - Vital Signs/Intake and Output Vital Signs (last 24 hours): Temp Pulse Resp BP Pulse Ox 97.5 F L 62 18 155/82 H 95 01/09/17 11:38 01/09/17 11:38 01/09/17 11:38 01/09/17 11:38 01/09/17 05:49 Intake and Output: 01/09/17 01/09/17 06:59 18:59 Intake Total 240 480 Output Total 1100 650 Balance -860 -170 - Medications Medications: Current Medications Acetaminophen (Tylenol 325mg Tab) 650 mg PO Q6H PRN PRN Reason: Fever >100.4 F Last Admin: 01/07/17 19:47 Dose: 650 mg Albuterol/Ipratropium (Duoneb 3 Mg/0.5 Mg (3 Ml) Ud) 3 ml IH Q2H PRN PRN Reason: Shortness of Breath Albuterol/Ipratropium (Duoneb 3 Mg/0.5 Mg (3 Ml) Ud) 3 ml IH [id number] [facility] Cyclobenzaprine HCl (Flexeril) 5 mg PO BID PRN PRN Reason: Muscle spasm Last Admin: 01/09/17 05:13 Dose: 5 mg Diphenhydramine HCl (Benadryl) 12.5 mg PO HS PRN PRN Reason: Insomnia Last Admin: 01/08/17 21:36 Dose: 12.5 mg Enoxaparin Sodium (Lovenox) 30 mg SC DAILY [facility] PRN Reason: Protocol Last Admin: 01/09/17 10:59 Dose: 30 mg Furosemide (Lasix) 20 mg IVP DAILY [facility] Last Admin: 01/09/17 11:01 Dose: 20 mg Guaifenesin (Robitussin) 200 mg PO Q4H PRN PRN Reason: Cough and congestion Last Admin: 01/09/17 05:13 Dose: 200 mg Hydralazine HCl (Apresoline) 10 mg PO QID PRN PRN Reason: Systolic Blood Pressure Ceftriaxone Sodium (Rocephin 1 Gram Ivpb) 1 gm in 100 mls @ 100 mls/hr IVPB DAILY [facility] PRN Reason: Protocol Last Admin: 01/09/17 10:59 Dose: 100 mls/hr Azithromycin (Zithromax 500mg In Ns) 500 mg in 250 mls @ 167 mls/hr IVPB DAILY [facility] PRN Reason: Protocol Last Admin: 01/09/17 12:35 Dose: 167 mls/hr Pantoprazole Sodium (Protonix Ec Tab) 40 mg PO 0600,1600 [facility] Last Admin: 01/09/17 05:13 Dose: 40 mg Prednisolone (Prednisolone Oral Soln) 20 mg PO DAILY [facility] - Labs Labs: 01/09/17 05:50 01/09/17 05:30 PT 11.8 Seconds (9.9-11.8) 01/07/17 11:36 INR 1.09 (0.93-1.08) H 01/07/17 11:36 APTT 29.1 Seconds (23.7-30.8) 01/07/17 11:36 Attending/Attestation - Attestation I have personally seen and examined this patient.: Yes I have fully participated in the care of the patient.: Yes I have reviewed all pertinent clinical information, including history, physical exam and plan: Yes Notes (Text): 01/09/17 16:33 86 year old male with past medical history of hypertension who presented with complaint of chest pain and abdominal pain which have resolved. Serial cardiac enyzmes were negative and ACS was ruled out. Cardiology evaluation was appreciated. Echocardiogram was reviewed. CXR/CT showed bilateral lower lobe pneumonia and extensive bronchiectasis, focal bladder wall thickening and mild enlargement of the prostate gland. CT chest done today showed severe pulmonary fibrosis. Patient is on iv antibiotics and duonebs. He is started on steroids. Pulmonary evaluation was requested. BISHNU has improved. HCTZ/losartan were held. Can consider resuming if creatinine is stable. Patient will need outpatient urology and pulmonary follow up. Speech and swallow evaluation is requested. OOB to chair. Jes Mendoza MD Hospitalist.
[2017-01-09] MEDS: Albuterol-Ipratrop 3 mg / 0.5 (3 ml) UD IH SCH (20:23)
[2017-01-09] MEDS: DiphenhydrAMINE 12.5 mg/5 ml LIQ UD (5 ml) PO PRN (21:34)
--- NOTE | 2017-01-09 22:00 | PN ---
DATE: SUBJECTIVE: The patient denies any retrosternal chest pain, no abdominal pain, mildly short of breath, and has no leg swelling. No reported arrhythmia. PHYSICAL EXAMINATION: VITAL SIGNS: Blood pressure 155/84, heart rate 64, temperature 97.5 and respiration 20. HEENT: Prosthetic right eye. NECK: No JVD. CHEST: Diffuse bilateral coarse dry crepitations. HEART: S1 and S2 regular. ABDOMEN: Soft. EXTREMITIES: No edema. LABORATORY DATA: Hemoglobin and hematocrit 11.7 and 36.3. White count and platelet count are within normal limits. SMA-7 is entirely within normal limits. Chest CT scan without contrast revealed severe pulmonary fibrosis with large cystic spaces in both lower lobes, right middle lobe and anterior portion of the right upper lobe. Echocardiographic study reveled normal left ventricular systolic function and normal segmental wall motion, mild to moderate pulmonary hypertension, mild aortic insufficiency and mild aortic stenosis. ASSESSMENT: 1. Severe pulmonary fibrosis. 2. Low grade fever. 3. Atypical chest pain, myocardial infarction is ruled out. 4. [id number] pulmonary hypertension. RECOMMENDATION: Continue hydralazine 10 mg q.i.d., Lasix can be changed to 20 mg orally once a day. Continue IV Rocephin and IV Zithromax. Consider initiating bronchodilators. The patient can be discharged on medical therapy with followup of his blood cultures. Octavio Bach MD
[2017-01-10] MEDS: Albuterol-Ipratrop 3 mg / 0.5 (3 ml) UD IH SCH ×3 (01:41→13:23)
--- NOTE | 2017-01-10 02:48 | CON ---
DATE: 01/09/2017 PULMONARY CONSULTATION REFERRING PHYSICIAN: Dr. Mendoza. REASON FOR CONSULTATION: Cough, shortness of breath, chronic lung disease. HISTORY OF PRESENT ILLNESS: This is an 86-year-old gentleman with past medical history significant for chronic lung disease, hypertension came into emergency room with sudden chest discomfort, cough and shortness of breath for one week and so, seen by cardiology, presently lying in the bed. No headache, no rhinitis. Does have cough. No nausea, no vomiting or diarrhea. No leg pain or leg swelling. He is a bedridden. PAST MEDICAL HISTORY: Chronic lung disease, hypertension. FAMILY HISTORY: No significant cardiopulmonary disease reported. SOCIAL HISTORY: Stopped smoking 4 years ago. Denies any alcohol use. ALLERGIES: NONE KNOWN. MEDICATIONS: He is on hydralazine 10 mg q.i.d. p.r.n., Benadryl 12.5 mg at bedtime p.r.n.,DuoNeb q.12 hours p.r.n., Flexeril 5 mg twice a day p.r.n. for muscle spasm, Lasix 20 IV daily, Lovenox 30 mg subcutaneously daily, Protonix 40 mg twice a day, Robitussin 200 mg q.4 hours p.r.n.,Rocephin 1 g IV daily, Tylenol p.r.n., and Zithromax 500 mg daily. REVIEW OF SYSTEMS: No headache, no rhinitis. Does have cough, shortness of breath. Currently no chest pain. Mild abdominal discomfort. No nausea, no vomiting, no diarrhea. No leg pain or leg swelling. Admits to have snoring and daytime sleepy and tired. PHYSICAL EXAMINATION: GENERAL: In no acute distress. VITAL SIGNS: Temperature is 98, heart rate is 62 respiratory rate 20, blood pressure 155/82, pulse oximetry 95% on room air. HEENT: Moist mucous membranes. Crowded airway. Mallampati score is 4. NECK: Supple. No JVD. LUNGS: Few crackles with scattered rhonchi. ABDOMEN: Soft and nontender. No organomegaly. EXTREMITIES: There is no edema. NEUROLOGICAL: Awake, alert, follows simple command. LABORATORY DATA: Shows hemoglobin 11.7, hematocrit 36.3, WBC 6.7 and platelet count is 295. INR 1.09. PTT 29. Sodium 140, potassium 3.7, chloride 103, bicarbonate 26, BUN 20, creatinine 1.4, glucose is 105, calcium is 8.9. AST 29, ALT 20, alkaline phosphatase is 81, and albumin is 3.7. Urine is unremarkable. Microbiology: Blood culture, so far, there is no growth. Had a CAT scan of the chest done yesterday which shows severe pulmonary severe pulmonary fibrosis with large cystic airspaces in both lower lobes, right middle lobe and inferior potion of the right upper lobe. Also had an echocardiogram done, which shows LV ejection fraction is okay, borderline concentric left ventricular hypertrophy, mild valvular hear disease, right ventricular systolic pressure is 46. Had a CT scan of the abdomen done which shows scattered colonic diverticulosis. There is a thickening of the left anterior lateral urinary bladder, mild enlargement of prostate, extensive bronchiectasis in both lower lobes. IMPRESSION AND PLAN: Chronic obstructive lung disease, bilateral bronchiectasis, hypertension, may be a component of sleep apnea syndrome. Continue antibiotics and inhaled bronchodilator, p.o. bronchodilator. We will suggest PFT as outpatient, attended sleep study as an outpatient, gastric prophylaxis and deep venous prophylaxis. Thank you, and we will follow with you. Santiago Valdez MD
[2017-01-10] MEDS: Pantoprazole 40 mg EC Tab PO SCH (05:52)
[2017-01-10 06:59] LABS: BASO # 0.02 K/mm3 (0.0-2.0); BASO % 0.3 % (0.0-3.0); EOS # 0.5 (0.0-0.7); EOS % 7.1 % (1.5-5.0); GRAN # 2.74 (1.4-6.5); GRAN % 43.2 % (50.0-68.0); HEMATOCRIT 35.6 % (42.0-52.0); LYMPH # 2.2 (1.2-3.4); LYMPH % 34.9 % (22.0-35.0); MEAN CELL VOLUME 90.8 fl (80.0-105.0); MEAN CORPUSCULAR HEMOGLOBIN 28.6 pg (25.0-35.0); MEAN CORPUSCULAR HGB CONC 31.5 g/dl (31.0-37.0); MEAN PLATELET VOLUME 9.5 fl (7.0-11.0); MONO # 0.9 (0.1-0.6); MONO % 14.5 % (1.0-6.0); WHITE BLOOD COUNT 6.3 10^3/ul (4.5-11.0)
[2017-01-10 07:02] VITALS: RESP 20
[2017-01-10 07:17] LABS: ALB/GLOB RATIO 0.9 (1.1-1.8); BILIRUBIN,TOTAL 0.4 mg/dL (0.2-1.3); CALCIUM 8.8 mg/dL (8.4-10.5); POTASSIUM 4.1 mmol/L (3.6-5.0); TOTAL PROTEIN 7.7 g/dL (5.8-8.3)
[2017-01-10] MEDS ORDERED: PrednisoLONE 15 mg/5 ml Oral Syrup (240 ml) PO SCH (10:00)
[2017-01-10] MEDS: Enoxaparin 30 mg Syringe SC SCH (11:45)
[2017-01-10] MEDS: cefTRIAXone 1 gm 1 GM/100 ML BAG IVPB SCH (13:44)
[2017-01-10] MEDS: Azithromycin 500MG/NS 250ml 500 MG/250 ML BAG IVPB SCH (14:39)
--- NOTE | 2017-01-10 14:51 | PN ---
DATE: SUBJECTIVE: The patient is experiencing burning urination. He denies any chest pain or productive cough. PHYSICAL EXAMINATION: VITAL SIGNS: Blood pressure 131/83, heart rate is 67, temperature 97.9, respiration 20. HEENT: Normocephalic except for right eye prosthesis. NECK: No JVD. CHEST: Bilateral diffuse dry crepitations. HEART: S1 and S2 regular. EXTREMITIES: No edema. LABORATORY DATA: Hemoglobin and hematocrit 11.1 and 35.6. White count and platelet count are within normal limits. SMA-7 is within normal limits except for BUN and creatinine of 23 and 1.6. Blood culture is negative after 48 hours and urine culture has no growth. ASSESSMENT: 1. Pulmonary fibrosis. 2. Pulmonary hypertension. 3. Rule out urinary tract infection or specifically underlying cystitis. 4. Hypertension. 5. Prerenal azotemia. RECOMMENDATIONS: Discontinue Lasix, continue current bronchodilators, continue hydralazine 10 mg q.i.d, prednisone 20 mg once a day, IV Rocephin and IV Zithromax, continue amlodipine at 5 mg once a day, Lovenox at 30 mg once a day. Consider repeating urinalysis. Octavio Bach MD
[2017-01-10 17:28] VITALS: BP 126/84; PULSE 89; TEMP 98; O2SAT 97
--- NOTE | 2017-01-10 18:12 | CP.PCM.DIS ---
Provider - Provider Date of Admission: 01/07/17 13:45 Attending physician: Jes Mendoza MD Primary care physician: NO PRIMARY CARE PROVIDER Consults: Custom Tailor: Dr. Courtney Montesology: Dr. Bach Time Spent in preparation of Discharge (in minutes): 35 Hospital Course - Lab Results Lab Results: Micro Results 01/07/17 15:05 Blood-Venous Blood Culture - Preliminary NO GROWTH AFTER 3 DAYS 01/07/17 14:40 Blood-Venous Blood Culture - Preliminary NO GROWTH AFTER 3 DAYS 01/07/17 21:30 Urine,Clean Catch Urine Culture - Final No Growth (<1,000 CFU/ML) Most Recent Lab Values WBC 6.3 10^3/ul (4.5-11.0) 01/10/17 06:30 RBC 3.92 10^6/uL (3.5-6.1) 01/10/17 06:30 Hgb 11.2 g/dL (14.0-18.0) L 01/10/17 06:30 Hct 35.6 % (42.0-52.0) L 01/10/17 06:30 MCV 90.8 fl (80.0-105.0) 01/10/17 06:30 MCH 28.6 pg (25.0-35.0) 01/10/17 06:30 MCHC 31.5 g/dl (31.0-37.0) 01/10/17 06:30 RDW 14.0 % (11.5-14.5) 01/10/17 06:30 Plt Count 278 10^3/uL (120.0-450.0) 01/10/17 06:30 MPV 9.5 fl (7.0-11.0) 01/10/17 06:30 Gran % 43.2 % (50.0-68.0) L 01/10/17 06:30 Lymph % (Auto) 34.9 % (22.0-35.0) 01/10/17 06:30 [place] % (Auto) 14.5 % (1.0-6.0) H 01/10/17 06:30 Eos % (Auto) 7.1 % (1.5-5.0) H 01/10/17 06:30 Baso % (Auto) 0.3 % (0.0-3.0) 01/10/17 06:30 Gran # 2.74 (1.4-6.5) 01/10/17 06:30 Lymph # 2.2 (1.2-3.4) 01/10/17 06:30 [place] # 0.9 (0.1-0.6) H 01/10/17 06:30 Eos # 0.5 (0.0-0.7) 01/10/17 06:30 Baso # 0.02 K/mm3 (0.0-2.0) 01/10/17 06:30 Corrected WBC (Man) Cancelled 01/08/17 06:15 Neutrophils % (Manual) Cancelled 01/08/17 06:15 Band Neutrophils % Cancelled 01/08/17 06:15 Lymphocytes % (Manual) Cancelled 01/08/17 06:15 Atypical Lymphs % Cancelled 01/08/17 06:15 Monocytes % (Manual) Cancelled 01/08/17 06:15 Eosinophils % (Manual) Cancelled 01/08/17 06:15 Basophils % (Manual) Cancelled 01/08/17 06:15 Metamyelocytes % Cancelled 01/08/17 06:15 Myelocytes % Cancelled 01/08/17 06:15 Promyelocytes % Cancelled 01/08/17 06:15 Nucleated RBC % Cancelled 01/08/17 06:15 Hypersegmented Polys Cancelled 01/08/17 06:15 Immature Lymphocytes Cancelled 01/08/17 06:15 Blast Cells Cancelled 01/08/17 06:15 Smudge Cells Cancelled 01/08/17 06:15 Toxic Granulation Cancelled 01/08/17 06:15 Dohle Bodies Cancelled 01/08/17 06:15 Marco Rods Cancelled 01/08/17 06:15 Platelet Evaluation Cancelled 01/08/17 06:15 Plt Clumps, EDTA Cancelled 01/08/17 06:15 Large Platelets Cancelled 01/08/17 06:15 Giant Platelets Cancelled 01/08/17 06:15 Polychromasia Cancelled 01/08/17 06:15 Hypochromasia Cancelled 01/08/17 06:15 Hyperchromasia Cancelled 01/08/17 06:15 Poikilocytosis (manual Cancelled 01/08/17 06:15 Basophilic Stippling Cancelled 01/08/17 06:15 Anisocytosis (manual) Cancelled 01/08/17 06:15 Microcytosis (manual) Cancelled 01/08/17 06:15 Macrocytosis (manual) Cancelled 01/08/17 06:15 Spherocytes Cancelled 01/08/17 06:15 Sickle Cells Cancelled 01/08/17 06:15 Target Cells Cancelled 01/08/17 06:15 Tear Drop Cells Cancelled 01/08/17 06:15 Ovalocytes Cancelled 01/08/17 06:15 Stomatocytes Cancelled 01/08/17 06:15 Helmet Cells Cancelled 01/08/17 06:15 [place] Rings Cancelled 01/08/17 06:15 John Cells Cancelled 01/08/17 06:15 Acanthocytes (Spur) Cancelled 01/08/17 06:15 Rouleaux Cancelled 01/08/17 06:15 Schistocytes Cancelled 01/08/17 06:15 PT 11.8 Seconds (9.9-11.8) 01/07/17 11:36 INR 1.09 (0.93-1.08) H 01/07/17 11:36 APTT 29.1 Seconds (23.7-30.8) 01/07/17 11:36 Sodium 140 mmol/L (132-148) 01/10/17 06:30 Potassium 4.1 mmol/L (3.6-5.0) 01/10/17 06:30 Chloride 102 mmol/L (98-107) 01/10/17 06:30 Carbon Dioxide 28 mmol/L (21-33) 01/10/17 06:30 Anion Gap 14 (10-20) 01/10/17 06:30 BUN 23 mg/dL (7-21) H 01/10/17 06:30 Creatinine 1.6 mg/dL (0.5-1.4) H 01/10/17 06:30 Est GFR ( Amer) 50 01/10/17 06:30 Est GFR (Non-Af Amer) 41 01/10/17 06:30 POC Glucose (mg/dL) 120 mg/dL (65-110) H 01/10/17 16:18 Random Glucose 104 mg/dL (70-110) 01/10/17 06:30 Hemoglobin A1c 5.8 % (4.2-6.5) 01/07/17 18:21 Calcium 8.8 mg/dL (8.4-10.5) 01/10/17 06:30 Magnesium 1.8 mg/dL (1.7-2.2) 01/09/17 09:08 Total Bilirubin 0.4 mg/dL (0.2-1.3) 01/10/17 06:30 AST 28 U/L (15-59) 01/10/17 06:30 ALT 21 U/L (7-56) 01/10/17 06:30 Alkaline Phosphatase 72 U/L (38-133) 01/10/17 06:30 Lactate Dehydrogenase 222 U/L (333-699) L 01/07/17 11:36 Total Creatine Kinase 38 U/L (35-230) 01/07/17 11:36 Troponin I 0.02 ng/mL D 01/07/17 23:38 NT-Pro-B Natriuret Pep 941 pg/mL (0-450) H 01/07/17 12:42 Total Protein 7.7 g/dL (5.8-8.3) 01/10/17 06:30 Albumin 3.6 g/dL (3.0-4.8) 01/10/17 06:30 Globulin 4.1 gm/dL 01/10/17 06:30 Albumin/Globulin Ratio 0.9 (1.1-1.8) L 01/10/17 06:30 Lipase 57 U/L (23-300) 01/08/17 05:00 Prostate Specific Ag 0.6 ng/mL (0.00-2.5) 01/07/17 14:40 Procalcitonin < 0.05 NG/ML (0.19-0.49) L 01/07/17 15:30 TSH 3rd Generation 2.03 mIU/mL (0.46-4.68) 01/07/17 14:40 Urine Color Light yellow (YELLOW) 01/07/17 21:30 Urine Appearance Clear (CLEAR) 01/07/17 21:30 Urine pH 6.0 (4.7-8.0) 01/07/17 21:30 Ur Specific [place] 1.010 (1.005-1.035) 01/07/17 21:30 Urine Protein Negative mg/dL (<30 mg/dL) 01/07/17 21:30 Urine Glucose (UA) Negative mg/dL (NEGATIVE) 01/07/17 21:30 Urine Ketones Negative mg/dL (NEGATIVE) 01/07/17 21:30 Urine Blood Trace-intact (NEGATIVE) H 01/07/17 21:30 Urine Nitrate Negative (NEGATIVE) 01/07/17 21:30 Urine Bilirubin Negative (NEGATIVE) 01/07/17 21:30 Urine Urobilinogen 0.2 E.U./dL (<1 E.U./dL) 01/07/17 21:30 Ur Leukocyte Esterase Negative [place]/uL (NEGATIVE) 01/07/17 21:30 Urine RBC 5 - 10 /hpf (0-2) 01/07/17 21:30 Urine WBC 0 - 2 /hpf (0-6) 01/07/17 21:30 Ur Epithelial Cells 0 - 2 /hpf (0-5) 01/07/17 21:30 Urine Bacteria Small (NEG) 01/07/17 21: Hyaline Casts 0 - 2 /hpf 01/07/17 21:30 - Hospital Course Hospital Course: Discharge Summary for Dr. Mendoza 86M, Persian speaking [place] H HTN and an umbilical hernia repair presented the [facility] complaining of stomach "burning" for one weeks duration. Burning sensation is intermittent with no radiation, worse at night and has been preventing him from sleeping He denies any associated fever, chills, N/V, or diarrhea. Patient he has had a productive cough of yellow phlegm for "years" that he reports is unchanged and unrelated to his chief complaint. He also endorses that he has had burning with urination and difficulty in stopping/starting his urinary stream for several years as well and, again, that this is unrelated to his chief complaint. He denies headache, changes in his vision, shortness of breath, pleurisy, chest pain, palpitations, numbness/tingling/weakness of any extremity and any new rash. In the ED, a chest x-ray showed bilateral lower lobe consilidation consistent with pneumonia as well as vascular congestion, an EKG showed NSR at 70 bpm with occasional PVC's and a CT abdomen/pelvis showed an enlarged prostate and scattered diverticulosis without signs of diverticulitis. 01/08 CT Chest: severe pulmonary fibrosis with large cystic air spaces in lower lobes, right middle lobe and inferior portion of right middle lobe 01/08 Echo: 54.3 % EF 01/08 EK bpm Sinus arrhythmia, PVCs 01/07 EK bpm Sinus Rhythm, PVC 01/07 CT ABdomen/Pelvis: 1.8x 0.7 focal thickening of left anterior lateral urinary bladder wall. consider neoplasm and focal cystitis. , small sliding hiatal hernia. mild enlargement of prostate gland with median lobe hypertrophy. extensive bronchiectasis in both lower lobes. scattered colonic diverticulosis without CT evidence for acute diverticulitis. PT was S&E at bedside today. No acute events overnight. Patient was given Bentyl for his discomfort with his bowels. During his stay, patient developed piriformis muscle spasms and was given Flexeril, which the issue resolved. Patient was given Norvasc 5mg POQD to follow up with primary care doctor for blood pressure control. BUN/Cr was elevated during stay. Fluids were given. Patient was instructed to follow up with [employer] certified network associate. Per rn field case manager: DC home with services when stable. - Date & Time of H&P Date of H&P: 01/10/17 Time of H&P: 18:12 Discharge Exam - Head Exam Head Exam: NORMAL INSPECTION, NORMOCEPHALIC Discharge Plan - Discharge Medications Prescriptions: Albuterol/Ipratropium [Duoneb 3 mg/0.5 mg (3 ml) UD] 3 ml IH [id number] #5 amLODIPine [Norvasc] 5 mg PO DAILY #14 tab Azithromycin [Zithromax] 250 mg PO DAILY #4 tab Azithromycin [Zithromax] 500 mg PO DAILY #1 tab Cefpodoxime [Vantin] 200 mg PO BID #20 tab Dicyclomine [Dicyclomine HCl] 10 mg PO DAILY #7 cap PrednisoLONE [PrednisoLONE Oral Soln] 20 mg PO DAILY #14 dose - Follow Up Plan Condition: FAIR Disposition: HOME/ ROUTINE Instructions: Chest Pain (DC), Chest Pain (GEN), Pneumonia (DC) Additional Instructions: Persian translation for the following instructions via recreation counselor: 1. follow up with Dr. Farrell in one week (evaluation of lung function, elevated BUN/Cr) 2. stay hydrated, continue to eat, and maintain healthy diet 3.take antibiotics 1)Azithromycin 500mg POQ once. 2)Take Azithromycin 250mg POQD for 4 days (start the day after finishing Azithromycin 500mg POQ once) 3) Take Vantin 200 mg PO BID for 10 days (start the same day as Azithromycin 500mg POQ once) 4. continue with home medications. Do not take losartan/hydrochlorothiazide until DR. Farrell has assessed kidney function and hypertension 5. start amlodipine 5mg POQD, monitor blood pressure. hold if blood pressure is below 110 systolic continue antibiotics and inhaled bronchodilator 6. PO Bronchodilator 7. schedule for PFT (pulmonary function test) outpatient with [employer] 8. schedule Sleep study as outpatient 9. continue exercise and physical therapy 10. follow up with urologist outpatient in 1 week for BPH (prostate), follow up with [employer] certified network associate in 1 week for BUN/Cr elevation Referrals: PCP,NO [Primary Care Provider] - Follow up with primary
== END 2017-01-10 17:38 | disposition home or self-care (01) | DRG 541 ==
LOC: ED 10:41 → ERH 13:45 → 2RNO 17:17 → 3RSO 01-09 21:23
PROVIDERS: ADMIT Internal Medicine; ATTEND Internal Medicine
PROC: 3E0F7GC Introduction of Other Therapeutic Substance into Respiratory Tract, Via Natural or Artificial Opening (ICD-10-PCS; principal; 2017-01-09)
DX: J44.0 Chronic obstructive pulmonary disease with (acute) lower respiratory infection (principal); J18.9 Pneumonia, unspecified organism; N17.9 Acute kidney failure, unspecified; I27.2 Other secondary pulmonary hypertension; J84.10 Pulmonary fibrosis, unspecified; E11.9 Type 2 diabetes mellitus without complications; I10 Essential (primary) hypertension; K42.9 Umbilical hernia without obstruction or gangrene; N40.0 Benign prostatic hyperplasia without lower urinary tract symptoms; K57.30 Diverticulosis of large intestine without perforation or abscess without bleeding; M62.838 Other muscle spasm; K44.9 Diaphragmatic hernia without obstruction or gangrene; J47.9 Bronchiectasis, uncomplicated; I49.3 Ventricular premature depolarization; Z97.0 Presence of artificial eye; Z87.891 Personal history of nicotine dependence

== ENCOUNTER 2017-12-19 16:04 | Inpatient (IN) | payer MEDICAID, MEDICARE ==
[2017-12-19] MEDS: Albuterol-Ipratrop 3 mg / 0.5 (3 ml) UD IH SCH ×3 (16:30→17:04)
[2017-12-19 16:38] VITALS: BMI 29.8
[2017-12-19 16:45] LABS: BASO # 0.04 K/mm3 (0.0-2.0); BASO % 0.6 % (0.0-3.0); EOS # 0.5 (0.0-0.7); EOS % 6.7 % (1.5-5.0); GRAN # 3.58 (1.4-6.5); HEMOGLOBIN 11.7 g/dL (14.0-18.0); LYMPH # 2.2 (1.2-3.4); LYMPH % 31.5 % (22.0-35.0); MEAN CELL VOLUME 89.3 fl (80.0-105.0); MEAN CORPUSCULAR HEMOGLOBIN 29.3 pg (25.0-35.0); MEAN CORPUSCULAR HGB CONC 32.8 g/dl (31.0-37.0); MEAN PLATELET VOLUME 9.6 fl (7.0-11.0); MONO # 0.6 (0.1-0.6); MONO % 9.2 % (1.0-6.0); RED CELL DISTRIBUTION WIDTH 13.8 % (11.5-14.5); VENOUS BLOOD GAS BASE EXCESS 0.6 mmol/L (0.0-2.0); VENOUS BLOOD GAS PO2 50 mm/Hg (30-55); VENOUS BLOOD PH 7.33 (7.32-7.43); WHITE BLOOD COUNT 6.9 10^3/ul (4.5-11.0)
--- NOTE | 2017-12-19 16:45 | ED PDOC ---
Arrival/HPI - General Chief Complaint: Shortness Of Breath Time Seen by Provider: 12/19/17 16:07 Historian: Spouse, [employer] (Phone [employer]: [phone]) - History of Present Illness Narrative History of Present Illness (Text): 12/19/17 16:42 An 85 year old, Turkmen speaking, male, with a past medical history that includes Hypertension and COPD. Patient's gave history with the assistance of and Turkmen phone concrete hopper operator ([phone]). The patient presents to the emergency department with worsening shortness of breath and productive cough. Patient's also notes that he complains of intermittent upper abdominal pain. The patient denies fevers, chills, headache, dizziness, sore throat, cough, chest pain, nausea, vomiting, diarrhea, neck/back pain, urinary/bowel changes or any other complaint. PMD: Dr. Morris Time/Duration: Prior to Arrival Symptom Onset: Sudden Symptom Course: Worsening Activities at Onset: Rest, Light Context: Home Past Medical History - Provider Review Nursing Documentation Reviewed: Yes - Cardiac Hx Hypertension: Yes - Pulmonary Hx Chronic Obstructive Pulmonary Disease (COPD): Yes - Neurological Hx Neurological Disorder: Yes (neuropathy) - HEENT Hx HEENT Disorder: No - Renal Hx Renal Disorder: No - Endocrine/Metabolic Hx Diabetes Mellitus Type 2: Yes - Hematological/Oncological Hx Blood Disorders: No - Integumentary Hx Dermatological Disorder: No - Musculoskeletal/Rheumatological Hx Falls: Yes (past) - Gastrointestinal Hx Gastrointestinal Disorders: (umbilical hernia) Hx Gastroesophageal Reflux: Yes - Genitourinary/Gynecological Hx Prostate Problems: Yes (enlarged) Other/Comment: c/o burning on urination and difficulty stopping and starting stream "for years". pt on flomax - Psychiatric Hx Substance Use: No - Anesthesia Hx Anesthesia: No - Suicidal Assessment Feels Threatened In Home Enviroment: No Family/Social History - Physician Review Nursing Documentation Reviewed: Yes Family/Social History: No Known Family HX Smoking Status: Former Smoker Hx Alcohol Use: No Hx Substance Use: No Hx Substance Use Treatment: No Allergies/Home Meds Allergies/Adverse Reactions: Allergies No Known Allergies Allergy (Verified 04/18/12 12:50) Home Medications: Home Meds Medication Instructions Recorded Confirmed Allopurinol [Zyloprim] 100 mg PO CONT 01/07/17 01/07/17 Gabapentin 300 mg PO DAILY 01/07/17 01/07/17 Naproxen [Anaprox DS] 550 mg PO BID 01/07/17 01/07/17 [id number] Ethyl Esters [OMEGA 3] 2 cap PO BID 01/07/17 01/07/17 Omeprazole 20 mg PO BID 01/07/17 01/07/17 Tamsulosin [Flomax] 0.4 mg PO DAILY 01/07/17 01/07/17 Vitamin E 1,000 iu PO QWK 01/07/17 01/07/17 Review of Systems - Physician Review All systems were reviewed & negative as marked: Yes - Review of Systems Constitutional: absent: Fevers Respiratory: SOB, Cough, Sputum Cardiovascular: absent: Chest Pain Gastrointestinal: Abdominal Pain (Epigastric abdominal pain.). absent: Stool Changes, Diarrhea, Nausea, Vomiting Genitourinary Male: absent: Urinary Output Changes Musculoskeletal: absent: Back Pain, Neck Pain Neurological: absent: Headache, Dizziness Physical Exam Vital Signs Reviewed: Yes Vital Signs Temp Pulse Resp BP Pulse Ox 12/19/17 17:56 93 L 12/19/17 17:13 77 18 135/76 100 12/19/17 16:30 18 100 12/19/17 16:05 98.3 F 75 17 140/74 93 L Temperature: Afebrile Blood Pressure: Normal Pulse: Regular Respiratory Rate: Normal Appearance: Positive for: Well-Appearing, Non-Toxic, Comfortable Pain Distress: None Mental Status: Positive for: Alert and Oriented X 3 - Systems Exam Head: Present: Atraumatic, Normocephalic Pupils: Present: PERRL Extroacular Muscles: Present: EOMI Conjunctiva: Present: Normal Mouth: Present: Moist Mucous Membranes Neck: Present: Normal Range of Motion Respiratory/Chest: Present: Wheezes, Rhonchi (Right lower lung field rhonchi). No: Tachypneic Cardiovascular: Present: Regular Rate and Rhythm, Normal S1, S2. No: Murmurs Abdomen: No: Tenderness, Distention, Peritoneal Signs Back: Present: Normal Inspection Upper Extremity: Present: Normal Inspection. No: Cyanosis, Edema Lower Extremity: Present: Edema Neurological: Present: GCS=15, CN II-XII Intact, Speech Normal Skin: Present: Warm, Dry, Normal Color. No: Rashes Psychiatric: Present: Alert, Oriented x 3, Normal Insight, Normal Concentration Medical Decision Making ED Course and Treatment: 12/19/17 16:47 Impression: An 87 year old male presents to the emergency department with a complaint of worsening shortness of breath, productive cough, and intermittent epigastric abdominal pain. Differential Diagnosis included but are not limited to: Asthma r/o pneumonia, r/ o CHF Plan: -- EKG -- Chest X-ray -- Labs -- Urine Culture -- Urinalysis -- Duoneb and SOLU-Medrol -- Reassess and disposition Progress Notes: EKG: Ordered, reviewed, and independently interpreted the EKG. Rate : 75 BPM Rhythm : NSR Interpretation : PVCs 12/19/17 17:50: Chest X-ray read and interpreted by me shows bilateral pneumonia , infiltrate on right side greater than left. Treated with Cefepime and Vancomycin IV. Patient with recent hospitalization for PNA,. 12/19/17 18:01: Case discussed in detail with Dr. Mendoza who will accept to the hospitalist service to the medical floor. - Critical Care Critical Care Minutes: 30 minutes - Lab Interpretations Lab Results: 12/19/17 16:30 12/19/17 16:30 Lab Results 12/19/17 18:00: Urine Color Yellow, Urine Appearance Clear, Urine pH 6.0, Ur Specific Premier 1.020, Urine Protein Trace H, Urine Glucose (UA) Negative, Urine Ketones Negative, Urine Blood Trace-intact H, Urine Nitrate Negative, Urine Bilirubin Negative, Urine Urobilinogen 0.2, Ur Leukocyte Esterase Negative , Urine RBC Pending, Urine WBC Pending 12/19/17 16:30: Sodium 139, Chloride 106, Potassium 5.3 H, Carbon Dioxide 25, Anion Gap 13, BUN 35 H, Creatinine 1.5, Est GFR ( Amer) 54, Est GFR (Non- Af Amer) 44, Random Glucose 100, Calcium 8.8, Magnesium 1.8, Total Bilirubin 0.6 , AST 24, ALT 22, Alkaline Phosphatase 84, Lactate Dehydrogenase 304 L, Total Creatine Kinase 65, Troponin I < 0.01 D, NT-Pro-B Natriuret Pep 505 H, Total Protein 8.3, Albumin 3.8, Globulin 4.5, Albumin/Globulin Ratio 0.8 L 12/19/17 16:30: pO2 50, VBG pH 7.33, VBG pCO2 52.0, VBG HCO3 27.4, VBG Total CO2 29.0 H, VBG O2 Sat (Calc) 84.6 H, VBG Base Excess 0.6, VBG Potassium 5.2, Sodium 137.0, Chloride 106.0, Glucose 103, Lactate 0.8, FiO2 21.0, Venous Blood Potassium 5.2 12/19/17 16:30: WBC 6.9, RBC 4.00, Hgb 11.7 L, Hct 35.7 L, MCV 89.3, MCH 29.3, MCHC 32.8, RDW 13.8, Plt Count 264, MPV 9.6, Gran % 52.0, Lymph % (Auto) 31.5, Vermilion % (Auto) 9.2 H, Eos % (Auto) 6.7 H, Baso % (Auto) 0.6, Gran # 3.58, Lymph # (Auto) 2.2, Vermilion # (Auto) 0.6, Eos # (Auto) 0.5, Baso # (Auto) 0.04 12/19/17 16:30: PT 13.0 H, INR 1.14, APTT 28.3 I have reviewed the lab results: Yes - RAD Interpretation Radiology Orders: 12/19/17 16:29 CHEST PORTABLE [RAD] Stat - EKG Interpretation Interpreted by ED Physician: Yes Type: 12 lead EKG - Medication Orders Current Medication Orders: Vancomycin HCl (Vancomycin 1gm) 1 gm in 250 mls @ 167 mls/hr IVPB STAT STA PRN Reason: Protocol Stop: 12/19/17 19:22 Discontinued Medications Albuterol/Ipratropium (Duoneb 3 Mg/0.5 Mg (3 Ml) Ud) 3 ml IH Q15M JEMAL Stop: 12/19/17 17:01 Last Admin: 12/19/17 17:04 Dose: 3 ml Cefepime HCl (Maxipime 2gm) 2 gm in 100 mls @ 100 mls/hr IVPB STAT STA PRN Reason: Protocol Stop: 12/19/17 18:52 Last Admin: 12/19/17 18:41 Dose: 100 mls/hr eMAR Start Stop Document 12/19/17 18:41 SF (Rec: 12/19/17 18:41 SF [id number]) Intravenous Solution Start Date 12/19/17 Start Time 18:41 End Date 12/19/17 End time 19:41 Total Infusion Time 60 Methylprednisolone (Solu-Medrol) 125 mg IVP STAT STA Stop: 12/19/17 16:29 Last Admin: 12/19/17 17:04 Dose: 125 mg IVP Administration Document 12/19/17 17:04 SF (Rec: 12/19/17 17:04 [id number] Charges for Administration # of IVP Administrations 1 Sodium Polystyrene Sulfonate (Kayexalate Susp) 30 gm PO STAT STA Stop: 12/19/17 17:09 Last Admin: 12/19/17 18:41 Dose: 30 gm - Scribe Statement The provider has reviewed the documentation as recorded by the Mayte Tolbert Provider Scribe Attestation: All medical record entries made by the Scribe were at my direction and personally dictated by me. I have reviewed the chart and agree that the record accurately reflects my personal performance of the history, physical exam, medical decision making, and the department course for this patient. I have also personally directed, reviewed, and agree with the discharge instructions and disposition. Disposition/Present on Arrival - Present on Arrival Any Indicators Present on Arrival: No History of DVT/PE: No History of Uncontrolled Diabetes: No Urinary Catheter: No History Surgical Site Infection Following: None - Disposition Have Diagnosis and Disposition been Completed?: Yes Diagnosis: Pneumonia Disposition: HOSPITALIZED Disposition Time: 18:03 Patient Plan: Admission Condition: FAIR
[2017-12-19 16:52] LABS: INR 1.14
[2017-12-19 16:54] LABS: ALB/GLOB RATIO 0.8 (1.1-1.8); ALBUMIN 3.8 g/dL (3.0-4.8); CALCIUM 8.8 mg/dL (8.4-10.5); GFR AFRICAN-AMERICAN 54; GFR NON-AFRICAN AMERICAN 44
[2017-12-19 16:55] LABS: PARTIAL THROMBOPLASTIN TIME 28.3 Seconds (25.1-36.5)
[2017-12-19 16:57] LABS: ALT/SGPT 22 U/L (7-56); AST/SGOT 24 U/L (17-59); BLOOD UREA NITROGEN 35 mg/dL (7-21)
[2017-12-19 17:06] LABS: B-TYPE NATRIURETIC PEPTIDE 505 pg/mL (0-450); TROPONIN I < 0.01 ng/mL
[2017-12-19] MEDS ORDERED: Sod Polystyrene Sulf 15 gm/60 ml Susp PO STA (17:08)
--- NOTE | 2017-12-19 17:39 | CARD ---
APPROVED REPORT Date of service: 12/19/2017 EKG Measurement Heart [id number] <Conclusion> Sinus rhythm with frequent premature ventricular complexes and fusion complexes Possible Left atrial enlargement Borderline ECG
[2017-12-19] MEDS ORDERED: Vancomycin 1gm in NS 250ml 1 GM/250 ML BAG IVPB STA (17:53)
[2017-12-19] MEDS ORDERED: Cefepime IV 2 gm in NS 2 GM/100 ML BAG IVPB STA (17:53)
--- NOTE | 2017-12-19 18:04 | RAD ---
Date of service: 12/19/2017 HISTORY: cough r/o pna COMPARISON: Comparison is made with 01/07/2017 FINDINGS: LUNGS: Interval appearance of heterogeneous opacity at the mid and lower right lung since the previous exam. Again seen are opacities at the lung bases. The possibility of pneumonia in the right lung should be considered. PLEURA: Blunting of the right costophrenic angle noted. CARDIOVASCULAR: Normal. OSSEOUS STRUCTURES: No significant abnormalities. VISUALIZED UPPER ABDOMEN: Normal. OTHER FINDINGS: None. IMPRESSION: New heterogeneous opacity at the mid to lower right lung may represent a pneumonia.
[2017-12-19 18:21] LABS: URINE APPEARANCE CLEAR (CLEAR); URINE BILIRUBIN NEGATIVE (NEGATIVE); URINE BLOOD TRACE-INTACT (NEGATIVE); URINE COLOR YELLOW (YELLOW); URINE GLUCOSE (UA) NEGATIVE (NEGATIVE); URINE LEUKOCYTE ESTERASE NEGATIVE Leu/uL (NEGATIVE); URINE PROTEIN TRACE mg/dL (<30 mg/dL); URINE UROBILINOGEN 0.2 E.U./dL (<1 E.U./dL)
[2017-12-19] MEDS ORDERED: Albuterol-Ipratrop 3 mg / 0.5 (3 ml) UD IH PRN (20:19)
--- NOTE | 2017-12-19 20:55 | CP.PCM.HP ---
<Paulino Chong - Last Filed: 12/19/17 21:35> History of Present Illness - History of Present Illness History of Present Illness: Paulino Chong D.O. PGY2, Internal Medicine CC: SOB HPI: Mr. Vyas is an 87 year old Bahamian male with a past medical history significant for HTN, COPD, gout, OA and BPH who presented to the [facility] complaining of SOB. Patient speaks Hungarian and translation was provided via surface grinding machine hand. Patient was eating lunch earlier today when his reports that he started screaming that he couldn't breathe and she then decided to bring him to the ED for further evaluation. For the past two weeks, the patient has been notably more fatigued, SOB and productive cough according to the patients . He was evaluated by his PMD two weeks ago and was given an unspecified pill that has not provided any relief. He denies any fevers, chills , headache, changes in his vision, chest pain, palpitations, pleurisy, hemoptysis, wheezing, abdominal pain, N/V/D/C, melena, changes in urine output, skin changes/lesions, or any numbness/tingling/weakness of any extremity. In the ED, a chest x-ray showed a new heterogenous opacity suspicious for pneumonia and an EKG showed NSR at 75 bpm with frequent PVC's. Patient was given one nebulized breathing treatment, one dose of IV steroids and one dose of Cefepime. PMH: HTN, COPD, gout, OA and BPH PSH: Umbilical Hernia Repair Family History: Denies Social History: Former smoker with 40 year pack smoking history (quit in 1971), denies alcohol or illicit drug use; Lives at home with his Allergies: NKDA Home Medications: As per MAR Present on Admission - Present on Admission Any Indicators Present on Admission: No Review of Systems - Review of Systems Review of Systems: As per HPI, otherwise negative Past Patient History - Past Social History Smoking Status: Former Smoker - CARDIAC Hx Hypertension: Yes - PULMONARY Hx Chronic Obstructive Pulmonary Disease (COPD): Yes - NEUROLOGICAL Hx Neurological Disorder: Yes (neuropathy) - HEENT Hx HEENT Problems: No - RENAL Hx Chronic Kidney Disease: No - ENDOCRINE/METABOLIC Hx Diabetes Mellitus Type 2: Yes - HEMATOLOGICAL/ONCOLOGICAL Hx Blood Disorders: No - INTEGUMENTARY Hx Dermatological Problems: No - MUSCULOSKELETAL/RHEUMATOLOGICAL Hx Falls: Yes (past) - GASTROINTESTINAL Hx Gastrointestinal Disorders: (umbilical hernia) Hx Gastroesophageal Reflux: Yes - GENITOURINARY/GYNECOLOGICAL Hx Prostate Problems: Yes (enlarged) Other/Comment: c/o burning on urination and difficulty stopping and starting stream "for years". pt on flomax - PSYCHIATRIC Hx Substance Use: No - SURGICAL HISTORY Hx Surgeries: No - ANESTHESIA Hx Anesthesia: No Meds Allergies/Adverse Reactions: Allergies Allergy/AdvReac Type Severity Reaction Status Date / Time No Known Allergies Allergy Verified 04/18/12 12:50 Physical Exam - Constitutional Appears: Non-toxic, No Acute Distress - Head Exam Head Exam: ATRAUMATIC, NORMOCEPHALIC - Eye Exam Eye Exam: EOMI, Normal appearance, PERRL Pupil Exam: NORMAL ACCOMODATION - ENT Exam ENT Exam: Mucous Membranes Moist, Normal Exam - Neck Exam Neck exam: Positive for: Full Rom, Normal Inspection. Negative for: Lymphadenopathy - Respiratory Exam Respiratory Exam: Decreased Breath Sounds (Right middle lobe), Rhonchi ( Bilateral lung bases extending to right middle lobe on right side), NORMAL BREATHING PATTERN. absent: Accessory Muscle Use, Chest Wall Tenderness, Clear to Auscultation Bilateral, Prolonged Expiratory Phase, Rales, Wheezes, Respiratory Distress, Stridor - Cardiovascular Exam Cardiovascular Exam: REGULAR RHYTHM, RRR, +S1, +S2, Systolic Murmur (II/IV at right second ICS). absent: Bradycardia, Tachycardia - GI/Abdominal Exam GI & Abdominal Exam: Normal Bowel Sounds, Soft. absent: Tenderness - Extremities Exam Extremities exam: Positive for: full ROM, normal capillary refill, pedal edema ( Trace pitting edema extending to ankle b/l), pedal pulses present. Negative for : calf tenderness, joint swelling, tenderness - Neurological Exam Neurological exam: Alert, Oriented x3 - Psychiatric Exam Psychiatric exam: Normal Affect, Normal Mood - Skin Skin Exam: Dry, Intact, Normal Color, Warm Results - Vital Signs Recent Vital Signs: Last Vital Signs Temp 98.3 F 12/19/17 16:05 Pulse 96 H 12/19/17 19:12 Resp 17 12/19/17 19:12 BP 132/80 12/19/17 19:12 Pulse Ox 99 12/19/17 19:12 - Labs Result Diagrams: 12/19/17 16:30 12/19/17 16:30 Assessment & Plan - Assessment and Plan (Free Text) Assessment: 87 year old Bah[place]ian male with a past medical history significant for HTN, COPD , gout, OA and BPH who presented to the [facility] complaining of SOB. Patient admitted and will be treated for COPD exacerbation. Plan: 1. COPD Exacerbation -Chest X-Ray showed a new heterogenous opacity suspicious for pneumonia -Sputum culture, ABG, Mycoplasma, Legionella, Chlamydia, Hepatitis panel and HIV pending -IV Rocephin and IV Zithromax -IV Solu-Medrol 60mg Q12 -IV Lasix 40mg once and Lasix 20mg PO daily -Duonebs Q6 scheduled and Q2 PRN -Brovan and Pulmicort Q12 -Singulair PO daily -AM Chest X-Ray pending -O2 via NC at 2L/minute -Pulmonology consulted, all recommendations appreciated 2. Hyperkalemia -EKG showed NSR at 75bpm with frequent PVC's and no ST/T wave changes -Potassium 5.3 on admission -Kayexalate given -F/U AM CMP 3. History of HTN -Continue home Norvasc 4. History of Gout -Continue home Allopurinol 5. History of OA -Ibuprofen 400mg Q6 PRN GI Prophylaxis: Protonix DVT Prophylaxis: Heparin Diet: Heart Healthy Patient seen and case discussed with attending, Dr. Mcginnis. Qi PGY2 - Date & Time Date: 12/19/17 Time: 21:50 Decision To Admit - Pt Status Changed To: Hospital Disposition Of: Inpatient Admission - Admit Certification Admit to Inpatient:: After my assessment, the patient will require hospitalization for at least two midnights. This is because of the severity of symptoms shown, intensity of services needed, and/or the medical risk in this patient being treated as an outpatient. - . Bed Request Type: Telemetry <Mingo Mcginnis - Last Filed: 12/20/17 02:48> Results - Vital Signs Recent Vital Signs: Last Vital Signs Temp 97.9 F 12/20/17 00:19 Pulse 88 12/20/17 00:19 Resp 20 12/20/17 00:19 BP 139/91 H 12/20/17 00:19 Pulse Ox 98 12/19/17 21:16 - Labs Result Diagrams: 12/19/17 16:30 12/19/17 16:30 Labs: Laboratory Results - last 24 hr 12/19/17 23:00 pCO2 39 pO2 140.0 H HCO3 21.5 ABG pH 7.35 ABG Total CO2 22.7 ABG O2 Saturation 99.7 H ABG Base Excess -3.8 L ABG Potassium 4.4 Sodium 138.0 Chloride 109.0 H Glucose 158 H Lactate 2.1 FiO2 32.0 Arterial Blood Potassium 4.4 Attending/Attestation - Attestation I have personally seen and examined this patient.: Yes I have fully participated in the care of the patient.: Yes I have reviewed all pertinent clinical information: Yes Notes (Text): Patient seen and examined with the residents, agree with above. Symptoms attributed to CAP with radiological evidence of infiltrate Continue with Abx - de-escalate as appropriate. Pulmonary input appreciated.
[2017-12-19] MEDS ORDERED: Fluticasone-Salmeterol 250-50mcg Diskus IH SCH (22:00)
[2017-12-19 23:26] LABS: ARTERIAL BLOOD GAS HCO3 21.5 mmol/L (21-28); ARTERIAL BLOOD GAS O2 SAT 99.7 % (95-98); ARTERIAL BLOOD GAS PCO2 39 mm/Hg (35-45); ARTERIAL BLOOD GAS PH 7.35 (7.35-7.45); ARTERIAL BLOOD GAS TCO2 22.7 mmol.L (22-28)
[2017-12-20] MEDS: Albuterol-Ipratrop 3 mg / 0.5 (3 ml) UD IH SCH ×4 (01:39→19:47)
[2017-12-20 03:04] LABS: VENOUS BLOOD GAS PO2 89 mm/Hg (30-55); VENOUS BLOOD PH 7.37 (7.32-7.43)
[2017-12-20 03:13] LABS: GRAN # 5.57 (1.4-6.5); GRAN % 89.6 % (50.0-68.0); HEMOGLOBIN 12.2 g/dL (14.0-18.0); LYMPH # 0.6 (1.2-3.4); LYMPH % 9.6 % (22.0-35.0); MEAN CELL VOLUME 88.6 fl (80.0-105.0); MEAN CORPUSCULAR HGB CONC 32.8 g/dl (31.0-37.0); MEAN PLATELET VOLUME 9.7 fl (7.0-11.0); MONO # 0.1 (0.1-0.6); MONO % 0.8 % (1.0-6.0); RBC 4.2 10^6/uL (3.5-6.1); RED CELL DISTRIBUTION WIDTH 13.7 % (11.5-14.5); WHITE BLOOD COUNT 6.2 10^3/ul (4.5-11.0)
[2017-12-20 03:39] LABS: ALB/GLOB RATIO 0.9 (1.1-1.8); ALT/SGPT < 6 U/L (7-56); AST/SGOT 21 U/L (17-59); BLOOD UREA NITROGEN 32 mg/dL (7-21); CALCIUM 9.2 mg/dL (8.4-10.5); GFR AFRICAN-AMERICAN 58; GFR NON-AFRICAN AMERICAN 48
[2017-12-20] MEDS: Pantoprazole 40 mg EC Tab PO SCH (05:29)
[2017-12-20] MEDS: Budesonide 0.5 mg/2 ml Inhal Susp UD IH SCH ×2 (08:01→19:47)
[2017-12-20] MEDS: Arformoterol 15 mcg/2 ml Inh Sol IH SCH ×2 (08:01→19:46)
--- NOTE | 2017-12-20 08:32 | RAD ---
Date of service: 12/20/2017 HISTORY: COPD COMPARISON: 12/19/2017 FINDINGS: LUNGS: Perihilar infiltrate PLEURA: No significant pleural effusion identified, no pneumothorax apparent. CARDIOVASCULAR: There is moderate to severe cardiomegaly with severe vascular congestion and bilateral perihilar infiltrates OSSEOUS STRUCTURES: No significant abnormalities. VISUALIZED UPPER ABDOMEN: Normal. OTHER FINDINGS: None. IMPRESSION: There is moderate to severe cardiomegaly with severe vascular congestion and bilateral perihilar infiltrates
--- NOTE | 2017-12-20 08:40 | CP.PCM.PN ---
<Carlyle Thayer - Last Filed: 12/20/17 17:54> Subjective - Date & Time of Evaluation Date of Evaluation: 12/20/17 Time of Evaluation: 09:00 - Subjective Subjective: Carlyle Thayer PGY-1 Progress Note for Hospitalist Service Patient seen and evaluated at bedside. No acute complaints. Sitting up in bed eating breakfast. Currently denies shortness of breath, chest pain, palpitation , abdominal pain, leg swelling, nausea, vomiting, or weakness. Objective - Vital Signs/Intake and Output Vital Signs (last 24 hours): Temp Pulse Resp BP Pulse Ox 97.4 F L 92 H 21 122/75 98 12/20/17 07:36 12/20/17 07:36 12/20/17 07:36 12/20/17 07:36 12/20/17 07:36 Intake and Output: 12/20/17 12/20/17 06:59 18:59 Output Total 850 Balance -850 - Medications Medications: Current Medications Acetaminophen (Tylenol 325mg Tab) 650 mg PO Q6H PRN PRN Reason: Fever >100.4 F Albuterol/Ipratropium (Duoneb 3 Mg/0.5 Mg (3 Ml) Ud) 3 ml IH Q2H PRN PRN Reason: Shortness of Breath Albuterol/Ipratropium (Duoneb 3 Mg/0.5 Mg (3 Ml) Ud) 3 ml IH [id number] [facility] Last Admin: 12/20/17 08:02 Dose: 3 ml Allopurinol (Zyloprim) 100 mg PO DAILY [facility] Amlodipine Besylate (Norvasc) 5 mg PO DAILY [facility] Arformoterol Tartrate (Brovana) 15 mcg IH [id number] [facility] Last Admin: 12/20/17 08:01 Dose: 15 mcg Budesonide (Pulmicort Respules) 0.5 mg IH [id number] [facility] Last Admin: 12/20/17 08:01 Dose: 0.5 mg Furosemide (Lasix) 20 mg PO DAILY [facility] Heparin Sodium (Porcine) (Heparin) 5,000 units SC Q12 [facility] PRN Reason: Protocol Last Admin: 12/19/17 23:28 Dose: 5,000 units Ceftriaxone Sodium (Rocephin 1 Gram Ivpb) 1 gm in 100 mls @ 100 mls/hr IVPB DAILY [facility] PRN Reason: Protocol Azithromycin (Zithromax 500mg In Ns) 500 mg in 250 mls @ 167 mls/hr IVPB DAILY [facility] PRN Reason: Protocol Ibuprofen (Motrin Tab) 400 mg PO Q6H PRN PRN Reason: Pain, Mild (1-3) Last Admin: 12/20/17 00:42 Dose: 400 mg Methylprednisolone (Solu-Medrol) 60 mg IVP Q12 [facility] Last Admin: 12/19/17 23:27 Dose: 60 mg Montelukast Sodium (Singulair) 10 mg PO HS [facility] Last Admin: 12/19/17 23:25 Dose: 10 mg Pantoprazole Sodium (Protonix Ec Tab) 40 mg PO 0600 [facility] Last Admin: 12/20/17 05:29 Dose: 40 mg Tamsulosin HCl (Flomax) 0.4 mg PO DAILY [facility] - Labs Labs: 12/20/17 02:55 12/20/17 02:55 PT 13.0 SECONDS (9.4-12.5) H 12/19/17 16:30 INR 1.14 12/19/17 16:30 APTT 29.5 Seconds (25.1-36.5) 12/20/17 02:55 - Constitutional Appears: Well, Non-toxic, No Acute Distress - Head Exam Head Exam: ATRAUMATIC, NORMAL INSPECTION, NORMOCEPHALIC - Eye Exam Eye Exam: EOMI, Normal appearance Pupil Exam: PERRL - ENT Exam ENT Exam: Mucous Membranes Moist - Neck Exam Neck Exam: Normal Inspection - Respiratory Exam Respiratory Exam: Clear to Ausculation Bilateral, Wheezes, NORMAL BREATHING PATTERN. absent: Rhonchi, Respiratory Distress Additional comments: no cough. currently on 2 L NC - Cardiovascular Exam Cardiovascular Exam: Tachycardia, RRR, +S1, +S2 Additional comments: Systolic murmur at R second ICS Mild tachycardia - GI/Abdominal Exam GI & Abdominal Exam: Soft, Normal Bowel Sounds. absent: Distended, Firm, Tenderness, Organomegaly - Extremities Exam Extremities Exam: Pedal Edema (trace). absent: Calf Tenderness, Joint Swelling - Back Exam Back Exam: NORMAL INSPECTION - Neurological Exam Neurological Exam: Alert, Awake, Oriented x3 - Psychiatric Exam Psychiatric exam: Normal Affect, Normal Mood - Skin Skin Exam: Dry, Intact, Normal Color Assessment and Plan - Assessment and Plan (Free Text) Assessment: Assessment: 87 year old [place] male with a past medical history significant for HTN, COPD , gout, OA and BPH who presented to the [facility] ED complaining of SOB. Patient admitted and will be treated for COPD exacerbation. Plan: 1. Chest Pain r/o ACS 2/2 CAP vs CHF - patient complained of bilateral upper chest pain. No nausea, vomiting, radiation into arm, or diaphoresis late this morning - EKG was ordered and no acute ST wave elevations or T wave inversions per read - troponin x2 was negative. f/u 3rd troponin later this afternoon - Motrin given for pain. Pain resolved and patient returned back to comfort baseline - low likelihood of cardiac etiology of pain. Pneumonia and hx of pulmonary fibrosis can give pain, and patient reports occasional heartburn - cardiology consult placed (Dr. Bach) 2. COPD Exacerbation -Chest X-Ray showed a new heterogenous opacity suspicious for pneumonia -Sputum culture, ABG, Mycoplasma, Legionella, Chlamydia, Hepatitis panel and HIV pending -IV Rocephin and IV Zithromax -IV Solu-Medrol 60mg Q12 -Lasix 20mg PO daily - Lactate trending up 0.8 to 2.1 to 2.9. Poor prognostic factor to follow in setting of no other forms of infection -Duonebs Q6 scheduled and Q2 PRN -Brovan and Pulmicort Q12 -Singulair PO daily -AM Chest X-Ray showing R lobe infiltrate -O2 via NC at 2L/minute -Pulmonology consulted, all recommendations appreciated - ID consult placed - would appreciate recommendations 3. Hyperkalemia- resolved -EKG showed NSR at 75bpm with frequent PVC's and no ST/T wave changes -Potassium 4.8 but 5.3 on admission -Kayexalate given 4. History of HTN -Continue home Norvasc 5. History of Gout -Continue home Allopurinol 6. History of OA -Ibuprofen 400mg Q6 PRN GI Prophylaxis: Protonix DVT Prophylaxis: Heparin Diet: Heart Healthy Patient seen, case reviewed, and plan discussed with Dr. Mendoza. Carlyle Thayer, PGY-1 <Jes Mendoza - Last Filed: 12/21/17 07:29> Objective - Vital Signs/Intake and Output Vital Signs (last 24 hours): Temp Pulse Resp BP Pulse Ox 97.0 F L 92 H 19 109/68 100 12/20/17 18:00 12/20/17 18:00 12/20/17 18:00 12/20/17 18:00 12/20/17 18:00 Intake and Output: 12/21/17 12/21/17 06:59 18:59 Intake Total 540 Output Total 525 Balance 15 - Medications Medications: Current Medications Acetaminophen (Tylenol 325mg Tab) 650 mg PO Q6H PRN PRN Reason: Fever >100.4 F Albuterol/Ipratropium (Duoneb 3 Mg/0.5 Mg (3 Ml) Ud) 3 ml IH Q2H PRN PRN Reason: Shortness of Breath Albuterol/Ipratropium (Duoneb 3 Mg/0.5 Mg (3 Ml) Ud) 3 ml IH [id number] [facility] Last Admin: 12/21/17 01:01 Dose: 3 ml Allopurinol (Zyloprim) 100 mg PO DAILY [facility] Last Admin: 12/20/17 10:23 Dose: 100 mg Amlodipine Besylate (Norvasc) 5 mg PO DAILY [facility] Last Admin: 12/20/17 10:19 Dose: 5 mg Arformoterol Tartrate (Brovana) 15 mcg IH [id number] [facility] Last Admin: 12/20/17 19:46 Dose: 15 mcg Budesonide (Pulmicort Respules) 0.5 mg IH [id number] [facility] Last Admin: 12/20/17 19:47 Dose: 0.5 mg Furosemide (Lasix) 20 mg PO DAILY [facility] Last Admin: 12/20/17 10:18 Dose: 20 mg Heparin Sodium (Porcine) (Heparin) 5,000 units SC Q12 [facility] PRN Reason: Protocol Last Admin: 12/20/17 22:55 Dose: 5,000 units Ceftriaxone Sodium (Rocephin 1 Gram Ivpb) 1 gm in 100 mls @ 100 mls/hr IVPB DAILY [facility] PRN Reason: Protocol Last Admin: 12/20/17 10:19 Dose: 100 mls/hr Azithromycin (Zithromax 500mg In Ns) 500 mg in 250 mls @ 167 mls/hr IVPB DAILY [facility] PRN Reason: Protocol Last Admin: 12/20/17 10:20 Dose: 167 mls/hr Ibuprofen (Motrin Tab) 400 mg PO Q6H PRN PRN Reason: Pain, Mild (1-3) Last Admin: 12/20/17 23:12 Dose: 400 mg Methylprednisolone (Solu-Medrol) 60 mg IVP Q12 [facility] Last Admin: 12/20/17 22:45 Dose: 60 mg Montelukast Sodium (Singulair) 10 mg PO HS [facility] Last Admin: 12/20/17 22:55 Dose: 10 mg Pantoprazole Sodium (Protonix Ec Tab) 40 mg PO 0600 [facility] Last Admin: 12/21/17 05:50 Dose: 40 mg Tamsulosin HCl (Flomax) 0.4 mg PO DAILY [facility] Last Admin: 12/20/17 10:23 Dose: 0.4 mg - Labs Labs: 12/20/17 02:55 12/20/17 02:55 PT 13.0 SECONDS (9.4-12.5) H 12/19/17 16:30 INR 1.14 12/19/17 16:30 APTT 29.5 Seconds (25.1-36.5) 12/20/17 02:55 Attending/Attestation - Attestation I have personally seen and examined this patient.: Yes I have fully participated in the care of the patient.: Yes I have reviewed all pertinent clinical information, including history, physical exam and plan: Yes Notes (Text): 12/20/17 87 year old male with past medical history of hypertension, COPD and arthritis who presented with chest pain, cough and shortness of breath. Symptoms secondary to COPD exacerbation and pneumonia (CXR shows right mid-low lung opacity). Serial cardiac enzymes are negative. Continue with iv steroids and iv antibiotics. Lactic acid is elevated, however patient does not have fever, leukocytosis or elevated procalcitonin. CXR also showed moderate congestion. ProBNP only mildy elevated. Echocardiogram is ordered. Patient is on lasix. Will follow up with pulmonary, cardiology and ID recommendations. Jes Mendoza MD Hospitalist.
[2017-12-20] MEDS ORDERED: Azithromycin 500MG/NS 250ml 500 MG/250 ML BAG IVPB SCH (10:00)
[2017-12-20] MEDS: cefTRIAXone 1 gm 1 GM/100 ML BAG IVPB SCH (10:19)
--- NOTE | 2017-12-20 10:41 | CARD ---
APPROVED REPORT Date of service: 12/20/2017 EKG Measurement Heart [id number] <Conclusion> Sinus rhythm with supraventricular premature complexes Possible Left atrial enlargement Borderline ECG
[2017-12-20 10:42] LABS: TROPONIN I < 0.01 ng/mL
[2017-12-20 12:50] LABS: HEPATITIS B SURFACE AG Negative (NEGATIVE)
[2017-12-20 12:56] LABS: HEPATITIS A IGM NEGATIVE (NEGATIVE); HEPATITIS B CORE AB NEGATIVE (NEGATIVE)
[2017-12-20 13:08] LABS: HEPATITIS C ANTIBODY NEGATIVE (NEGATIVE)
--- NOTE | 2017-12-20 14:21 | CON ---
Copied To: Octavio Bach MD Attending MD: Octavio Bach MD DATE: 12/20/2017 CARDIOLOGY CONSULT REASON FOR CONSULTATION: Shortness of breath. HISTORY OF PRESENT ILLNESS: The patient is an 87-year-old Martiniquais male, who is a former smoker, has a history of severe pulmonary fibrosis, who presented with shortness of breath and productive cough. The patient did feel hot and sweaty, but denies any chills. The patient is unaware of any retrosternal chest pain, heart attack or coronary intervention in the past. SOCIAL HISTORY: The patient is a former smoker. MEDICATIONS: Brovana 15 mcg inhalation every 12 hours, albuterol inhaler every 2 hours p.r.n., Flomax 0.4 mg once a day, heparin 5000 units subcutaneously twice a day, Lasix 20 mg p.o. once a day, Motrin 400 mg p.o. every 6 hours p.r.n., Norvasc 5 mg once a day, Protonix 40 mg p.o. once a day, Rocephin 1 g intravenously daily, Solu-Medrol 60 mg intravenously twice a day, Zithromax 500 mg intravenously daily, Zyloprim 100 mg orally daily. REVIEW OF SYSTEMS: No dizziness or syncope. No retrosternal chest pain and no palpitation. PAST MEDICAL HISTORY: Chronic obstructive lung disease, pulmonary fibrosis, hypertension. PHYSICAL EXAMINATION: GENERAL: The patient is an elderly male, who is mildly tachypneic, but does not appear to be in any acute distress. VITAL SIGNS: Blood pressure 125/86, heart rate 105, temperature 97.4, respirations 21. HEENT: Normocephalic. CHEST: Bilateral coarse crepitations basally. HEART: S1 and S2 regular. ABDOMEN: Soft. EXTREMITIES: Trace leg edema. LABORATORY DATA: Today's hemoglobin and hematocrit 12.2 and 37.2. White count and platelet count are within normal limits. Today's SMA-7: Sodium 140, potassium 4.8, chloride 105, CO2 of 21, glucose of 180, BUN 32, creatinine 1.4. Two sets of troponins are negative. INR is 1.14, PTT 28.3. Hepatitis profile is negative. EKG revealed sinus rhythm with premature atrial complexes, possible left atrial enlargement. CT scan of the chest done in 12/2016 reveals severe pulmonary fibrosis with large cystic airspace in both lower lobes, right middle lobe and the inferior portion of the right upper lobe. Echocardiography study in 12/2016 revealed borderline concentric LVH with normal ejection fraction. Mild valvular aortic stenosis, mild to moderate pulmonary hypertension. Today's chest x-ray on admission revealed moderate to severe cardiomegaly with severe vascular congestion and bilateral perihilar infiltrate. ASSESSMENT: 1. Exacerbation of chronic obstructive lung disease. 2. Consider right lower and middle lobe pneumonia. 3. Mild aortic stenosis. 4. Severe pulmonary fibrosis with mild to moderate pulmonary hypertension. 5. Hypertension. RECOMMENDATIONS: Continue current albuterol inhaler, continue Brovana inhaler. Continue subcutaneous heparin 5000 units twice a day, Lasix 20 mg orally once a day, Norvasc 5 mg once a day, Rocephin 1 g daily, Solu-Medrol 60 mg intravenously twice a day, Zithromax 500 mg intravenously daily. Octavio Bach MD
--- NOTE | 2017-12-20 15:09 | CP.PCM.CON ---
History of Present Illness - History of Present Illness History of Present Illness: 87 year old male with PMH of HTN, COPD, osteoarthritis, gout, benign prostatic hyperplasia, history of umbilical hernia repair, significant smoking history came in to [facility] [place] because of trouble breathing for 1-2 days associated with cough with whitish phlegm. He denies fever or chills, no abdominal pain, no chest pain , no diarrhea, no dysuria or hematuria, no sore throat, no rhinorrhea. CXR was done in the ED, which is suspicious for right lung field opacity. Infectious diseases consult is requested to further evaluate and manage. Review of Systems - Review of Systems All systems: reviewed and no additional remarkable complaints except (as per HPI ) Past Patient History - Past Social History Smoking Status: Former Smoker - CARDIAC Hx Cardiac Disorders: Yes Hx Hypertension: Yes - PULMONARY Hx Respiratory Disorders: Yes Hx Chronic Obstructive Pulmonary Disease (COPD): Yes - NEUROLOGICAL Hx Neurological Disorder: Yes - HEENT Hx HEENT Problems: Yes Hx Blind: Yes (right eye) - RENAL Hx Chronic Kidney Disease: No - ENDOCRINE/METABOLIC Hx Endocrine Disorders: Yes Hx Diabetes Mellitus Type 2: Yes - HEMATOLOGICAL/ONCOLOGICAL Hx Blood Disorders: No - INTEGUMENTARY Hx Dermatological Problems: No - MUSCULOSKELETAL/RHEUMATOLOGICAL Hx Musculoskeletal Disorders: Yes Hx Arthritis: Yes Hx Falls: No Hx Gout: Yes - GASTROINTESTINAL Hx Gastrointestinal Disorders: Yes Hx Gastroesophageal Reflux: Yes - GENITOURINARY/GYNECOLOGICAL Hx Genitourinary Disorders: Yes Hx Prostate Problems: Yes - PSYCHIATRIC Hx Psychophysiologic Disorder: No Hx Substance Use: No - SURGICAL HISTORY Hx Surgeries: No - ANESTHESIA Hx Anesthesia: No Meds Allergies/Adverse Reactions: Allergies Allergy/AdvReac Type Severity Reaction Status Date / Time No Known Allergies Allergy Verified 04/18/12 12:50 - Medications Medications: Current Medications Acetaminophen (Tylenol 325mg Tab) 650 mg PO Q6H PRN PRN Reason: Fever >100.4 F Albuterol/Ipratropium (Duoneb 3 Mg/0.5 Mg (3 Ml) Ud) 3 ml IH Q2H PRN PRN Reason: Shortness of Breath Albuterol/Ipratropium (Duoneb 3 Mg/0.5 Mg (3 Ml) Ud) 3 ml IH [id number] [facility] Last Admin: 12/20/17 08:02 Dose: 3 ml Allopurinol (Zyloprim) 100 mg PO DAILY [facility] Last Admin: 12/20/17 10:23 Dose: 100 mg Amlodipine Besylate (Norvasc) 5 mg PO DAILY [facility] Last Admin: 12/20/17 10:19 Dose: 5 mg Arformoterol Tartrate (Brovana) 15 mcg IH [id number] [facility] Last Admin: 12/20/17 08:01 Dose: 15 mcg Budesonide (Pulmicort Respules) 0.5 mg IH [id number] [facility] Last Admin: 12/20/17 08:01 Dose: 0.5 mg Furosemide (Lasix) 20 mg PO DAILY [facility] Last Admin: 12/20/17 10:18 Dose: 20 mg Heparin Sodium (Porcine) (Heparin) 5,000 units SC Q12 [facility] PRN Reason: Protocol Last Admin: 12/20/17 10:23 Dose: 5,000 units Ceftriaxone Sodium (Rocephin 1 Gram Ivpb) 1 gm in 100 mls @ 100 mls/hr IVPB DAILY [facility] PRN Reason: Protocol Last Admin: 12/20/17 10:19 Dose: 100 mls/hr Azithromycin (Zithromax 500mg In Ns) 500 mg in 250 mls @ 167 mls/hr IVPB DAILY [facility] PRN Reason: Protocol Last Admin: 12/20/17 10:20 Dose: 167 mls/hr Ibuprofen (Motrin Tab) 400 mg PO Q6H PRN PRN Reason: Pain, Mild (1-3) Last Admin: 12/20/17 10:10 Dose: 400 mg Methylprednisolone (Solu-Medrol) 60 mg IVP Q12 [facility] Last Admin: 12/20/17 10:23 Dose: 60 mg Montelukast Sodium (Singulair) 10 mg PO HS [facility] Last Admin: 12/19/17 23:25 Dose: 10 mg Pantoprazole Sodium (Protonix Ec Tab) 40 mg PO 0600 [facility] Last Admin: 12/20/17 05:29 Dose: 40 mg Tamsulosin HCl (Flomax) 0.4 mg PO DAILY [facility] Last Admin: 12/20/17 10:23 Dose: 0.4 mg Physical Exam - Constitutional Appears: Non-toxic, Chronically Ill - Head Exam Head Exam: NORMAL INSPECTION - ENT Exam ENT Exam: Mucous Membranes Moist - Neck Exam Neck exam: Negative for: Meningismus - Respiratory Exam Respiratory Exam: Decreased Breath Sounds - Cardiovascular Exam Cardiovascular Exam: +S1, +S2 - GI/Abdominal Exam GI & Abdominal Exam: Soft. absent: Tenderness Results - Vital Signs Recent Vital Signs: Last Vital Signs Temp 97.4 F L 12/20/17 07:36 Pulse 105 H 12/20/17 10:19 Resp 21 12/20/17 07:36 BP 125/86 12/20/17 10:19 Pulse Ox 98 12/20/17 07:36 - Labs Result Diagrams: 12/20/17 02:55 12/20/17 02:55 Labs: Laboratory Results - last 24 hr 12/19/17 12/20/17 12/20/17 23:00 02:55 02:55 WBC 6.2 RBC 4.20 Hgb 12.2 L Hct 37.2 L MCV 88.6 MCH 29.0 MCHC 32.8 RDW 13.7 Plt Count 279 MPV 9.7 Gran % 89.6 H Lymph % (Auto) 9.6 L Hall % (Auto) 0.8 L Eos % (Auto) 0.0 L Baso % (Auto) 0.0 Gran # 5.57 Lymph # (Auto) 0.6 L Hall # (Auto) 0.1 Eos # (Auto) 0.0 Baso # (Auto) 0.00 APTT 29.5 pCO2 39 pO2 140.0 H HCO3 21.5 ABG pH 7.35 ABG Total CO2 22.7 ABG O2 Saturation 99.7 H ABG Base Excess -3.8 L ABG Potassium 4.4 VBG pH VBG pCO2 VBG HCO3 VBG Total CO2 VBG O2 Sat (Calc) VBG Base Excess VBG Potassium Sodium 138.0 Chloride 109.0 H Glucose 158 H Lactate 2.1 FiO2 32.0 Potassium Carbon Dioxide Anion Gap BUN Creatinine Est GFR ( Amer) Est GFR (Non-Af Amer) Random Glucose Lactic Acid Calcium Phosphorus Magnesium Total Bilirubin AST ALT Alkaline Phosphatase Lactate Dehydrogenase Total Creatine Kinase Troponin I Total Protein Albumin Globulin Albumin/Globulin Ratio Arterial Blood Potassium 4.4 Venous Blood Potassium 12/20/17 12/20/17 12/20/17 02:55 02:55 09:00 WBC RBC Hgb Hct MCV MCH MCHC RDW Plt Count MPV Gran % Lymph % (Auto) Hall % (Auto) Eos % (Auto) Baso % (Auto) Gran # Lymph # (Auto) Hall # (Auto) Eos # (Auto) Baso # (Auto) APTT pCO2 pO2 89 H HCO3 ABG pH ABG Total CO2 ABG O2 Saturation ABG Base Excess ABG Potassium VBG pH 7.37 VBG pCO2 40.0 VBG HCO3 23.1 VBG Total CO2 24.3 VBG O2 Sat (Calc) 97.8 H VBG Base Excess -2.0 L VBG Potassium 4.5 Sodium 140 136.0 Chloride 105 108.0 H Glucose 188 H Lactate 2.9 H FiO2 21.0 Potassium 4.8 Carbon Dioxide 21 Anion Gap 19 BUN 32 H Creatinine 1.4 Est GFR ( Amer) 58 Est GFR (Non-Af Amer) 48 Random Glucose 180 H Lactic Acid 2.8 H Calcium 9.2 Phosphorus 3.3 Magnesium 1.7 Total Bilirubin 0.3 AST 21 ALT < 6 L Alkaline Phosphatase 82 Lactate Dehydrogenase Total Creatine Kinase Troponin I Total Protein 8.6 H Albumin 4.0 Globulin 4.6 Albumin/Globulin Ratio 0.9 L Arterial Blood Potassium Venous Blood Potassium 4.5 12/20/17 10:00 WBC RBC Hgb Hct MCV MCH MCHC RDW Plt Count MPV Gran % Lymph % (Auto) Hall % (Auto) Eos % (Auto) Baso % (Auto) Gran # Lymph # (Auto) Hall # (Auto) Eos # (Auto) Baso # (Auto) APTT pCO2 pO2 HCO3 ABG pH ABG Total CO2 ABG O2 Saturation ABG Base Excess ABG Potassium VBG pH VBG pCO2 VBG HCO3 VBG Total CO2 VBG O2 Sat (Calc) VBG Base Excess VBG Potassium Sodium Chloride Glucose Lactate FiO2 Potassium Carbon Dioxide Anion Gap BUN Creatinine Est GFR ( Amer) Est GFR (Non-Af Amer) Random Glucose Lactic Acid Calcium Phosphorus Magnesium Total Bilirubin AST ALT Alkaline Phosphatase Lactate Dehydrogenase 276 L Total Creatine Kinase 44 Troponin I < 0.01 Total Protein Albumin Globulin Albumin/Globulin Ratio Arterial Blood Potassium Venous Blood Potassium Assessment & Plan - Assessment and Plan (Free Text) Plan: Assessment consider right sided community-acquired pneumonia HTN COPD osteoarthritis gout benign prostatic hyperplasia history of umbilical hernia repair significant smoking history Plan started Rocephin and Zithromax pending blood, sputum cx, PCT, repeat CXR will monitor clinically
--- NOTE | 2017-12-20 17:54 | CT ---
Date of service: 12/20/2017 PROCEDURE: CT Chest without contrast HISTORY: infiltrate COMPARISON: 01/09/2017 TECHNIQUE: Contiguous axial images were obtained through the chest without intravenous contrast enhancement. Sagittal and coronal reconstructions were performed. Radiation dose (DLP): 636.62 mGy-cm. This CT exam was performed using one or more of the following dose reduction techniques: Automated exposure control, adjustment of the mA and/or kV according to patient size, and/or use of iterative reconstruction technique. FINDINGS: LUNGS: Chronic interstitial lung disease. Lower lobe predilection. The findings are primarily honeycombing. There may be a component of mild bronchiectasis. No additional pulmonary abnormalities. Specifically no pulmonary nodules, masses or infiltrates. MEDIASTINUM: Unremarkable thoracic aorta. No aneurysm. Normal sized heart. Main pulmonary artery unremarkable. No vascular congestion. No lymphadenopathy. PLEURA: No pleural fluid. No pneumothorax. BONES: No fracture. No destructive lesion. UPPER ABDOMEN: Grossly unremarkable. OTHER FINDINGS: None. IMPRESSION: Chronic interstitial lung disease/ interstitial fibrosis with honeycombing pattern in the lower lobe predilection. No new/acute or superimposed findings.
[2017-12-21] MEDS: Albuterol-Ipratrop 3 mg / 0.5 (3 ml) UD IH SCH ×3 (01:01→13:46)
--- NOTE | 2017-12-21 03:54 | CON ---
DATE: 12/20/2017 PULMONARY CONSULTATION REFERRING PHYSICIAN: Dr. Mendoza. REASON FOR CONSULTATION: Pulmonary infiltrate, cough and shortness of breath. HISTORY OF PRESENT ILLNESS: This is an 87 years old [place] male with past medical history significant for hypertension, chronic lung disease, BPH, osteoarthritis, gout, ex-smoker, apparently developed shortness of breath and cough, brought into emergency room, had x-ray done which shows infiltrate, admitted for further workup, presently lying in the bed. Has some cough. No sputum production. No nausea, no vomiting, no diarrhea. No leg pain or leg swelling. PAST MEDICAL HISTORY: Chronic lung disease, gout, osteoarthritis, hypertension, BPH. FAMILY HISTORY: No significant cardiopulmonary disease reported. 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 Denies any alcohol use. ALLERGIES: NONE KNOWN. MEDICATIONS: He is on Brovana inhaled twice a day, albuterol/Atrovent nebulizer every 2 hours p.r.n., also every 6 hours [id number], Flomax 0.4 mg daily, heparin 5000 units subcu every 12 hours, Lasix 20 mg daily, Motrin 400 mg every 6 hours p.r.n., Norvasc 5 mg daily, Protonix 40 mg daily, Pulmicort inhaled twice a day, Rocephin 1 g daily, Singulair 10 mg daily, Solu-Medrol 60 mg every 12 hours, Tylenol p.r.n., Zithromax 500 mg daily, allopurinol 100 mg daily. REVIEW OF SYSTEM: No headache, no rhinitis. Has cough and shortness of breath. Clear sputum production. No hemoptysis. No nausea, no vomiting. No dysuria. No leg pain or leg swelling. PHYSICAL EXAMINATION: GENERAL: Lying in the bed, in no acute distress. VITAL SIGNS: Temperature is 98, heart rate 92, respiratory rate is 20, blood pressure 122/75, pulse ox 98% on 3 liters nasal cannula. HEENT: Moist mucous membrane. Crowded airway. Mallampati score is 4. NECK: Supple. No JVD. LUNGS: Have scattered rhonchi, with a few wheezing. HEART: S1 and S2. ABDOMEN: Soft, nontender, no organomegaly. EXTREMITIES: There is no edema. NEUROLOGIC: Awake and alert, follows simple commands. LABORATORY DATA: Shows hemoglobin 12.2, hematocrit 37.2, WBC 6.2, platelet is 279. PTT is S 30. INR is 1.14. Had ABG done yesterday showed pH 7.35, pCO2 of 39, O2 140 that was on supplemental oxygen. Sodium 140, potassium 4.8, chloride 105, bicarbonate 21, BUN 32, creatinine 1.4, glucose 180. Lactic acid 2.8, calcium 9.2, phosphorus 3.3, magnesium 1.7, AST 21, ALT less than 6, alk phos is 82. Albumin is 4, procalcitonin 0.05. Urinalysis shows WBC 2 to 5. Has a chest x-ray done today shows moderate to severe cardiomegaly with severe vascular congestion and bilateral perihilar infiltrates. IMPRESSION AND PLAN: Chronic obstructive lung disease, hypertension, gout, degenerative joint disease, unremarkable procalcitonin, pro-BNP was mildly elevated. Case discussed with the patient's at bedside. All the questions answered. Agree with the present treatment. Continue steroids, inhaled bronchodilator. Continue antibiotics. Need CT scan of the chest, also need echocardiography, aspiration precaution. We will get speech therapy to see the patient to assure there is no oropharyngeal dysphagia. Gastric prophylaxis, deep venous thrombosis prophylaxis. Fall precaution. Thank you and we will follow with you. Santiago Valdez MD
[2017-12-21] MEDS: Pantoprazole 40 mg EC Tab PO SCH (05:50)
[2017-12-21] MEDS: Budesonide 0.5 mg/2 ml Inhal Susp UD IH SCH ×2 (08:04→21:05)
[2017-12-21] MEDS: Arformoterol 15 mcg/2 ml Inh Sol IH SCH ×2 (08:05→21:05)
--- NOTE | 2017-12-21 09:04 | PN ---
Copied To: Sanjiv Mendoza MD Attending MD: Sanjiv Mendoza MD DATE: 12/21/2017 LOCATION: The patient is seen in room 362, bed 1. SUBJECTIVE: He is awake and is weak. He had an uneventful night. No fevers. PHYSICAL EXAMINATION VITAL SIGNS: Temperature is 97, blood pressure is 109/60, respiratory rate of 19, heart rate of 102. HEENT: Unremarkable. NECK: Supple. LUNGS: Have decreased breath sounds. HEART: Normal S1, S2. ABDOMEN: Soft, nontender. LABORATORY DATA: Laboratory examination reveals a white count of 6.5, hemoglobin of 12, platelets of 279. Chemistries are noted and creatinine is 1.4 and the urinalysis is noted. Serology is noted. Microbiology is reviewed. The patient had a CT scan of the chest yesterday. Chronic interstitial lung disease, interstitial fibrosis, honeycombing pattern, no acute findings. Dr. Valdez's consultation is also reviewed. He states the patient has chronic obstructive lung disease. ASSESSMENT AND PLAN: An 87-year-old male seen earlier today in room 362, bed 1 with end-stage chronic obstructive lung disease and right-sided community-acquired pneumonia, hypertension, osteoarthritis, gout, benign prostatic hypertrophy, on ceftriaxone and Zithromax day #2 with procalcitonin is negative x2. A CAT scan without any acute changes. Urinalysis is noted and urine for Legionella antigen is negative. Human immunodeficiency virus negative and hepatitis profile negative. We will check on the blood cultures, the sputum cultures and the urine cultures and today is day #2 of ceftriaxone and the patient is on Solu-Medrol and Zithromax, may be able to switch to Zithromax to p.o. We will follow with you. Most likely we will discontinue the IV antibiotics in the next 24 hours. Sanjiv Mendoza MD
[2017-12-21 10:04] LABS: GRAN # 16.13 (1.4-6.5); LYMPH # 0.9 (1.2-3.4); MEAN CELL VOLUME 88.8 fl (80.0-105.0); MEAN CORPUSCULAR HEMOGLOBIN 29.3 pg (25.0-35.0); MEAN CORPUSCULAR HGB CONC 33.1 g/dl (31.0-37.0); MEAN PLATELET VOLUME 9.7 fl (7.0-11.0); MONO # 0.5 (0.1-0.6); PLATELET COUNT 273 10^3/uL (120.0-450.0); RBC 4.09 10^6/uL (3.5-6.1); RED CELL DISTRIBUTION WIDTH 13.7 % (11.5-14.5); WHITE BLOOD COUNT 17.5 10^3/ul (4.5-11.0)
[2017-12-21 10:20] LABS: LYMPHOCYTE 8 % (22.0-35.0); MONOCYTE 1 % (1.0-6.0); NEUTROPHIL 91 % (50.0-70.0); PLATELET ESTIMATE NORMAL (NORMAL)
[2017-12-21 10:35] LABS: ALB/GLOB RATIO 0.9 (1.1-1.8); ALBUMIN 4.1 g/dL (3.0-4.8); CALCIUM 9.2 mg/dL (8.4-10.5)
[2017-12-21] MEDS: cefTRIAXone 1 gm 1 GM/100 ML BAG IVPB SCH (11:59)
--- NOTE | 2017-12-21 13:39 | CP.PCM.PN ---
<Carlyle Thayer - Last Filed: 12/21/17 13:43> Subjective - Date & Time of Evaluation Date of Evaluation: 12/21/17 Time of Evaluation: 08:00 - Subjective Subjective: Carlyle Thayer PGY-1 Progress Note for Hospitalist Service Patient was seen and evaluated at bedside. Patient was sitting comfortably in chair. Patient denies chest pain, shortness of breath, palpitations, weakness, and headaches. Objective - Vital Signs/Intake and Output Vital Signs (last 24 hours): Temp Pulse Resp BP Pulse Ox 97.4 F L 82 20 132/76 100 12/21/17 06:00 12/21/17 11:57 12/21/17 06:00 12/21/17 12:00 12/21/17 06:00 Intake and Output: 12/21/17 12/21/17 06:59 18:59 Intake Total 740 Output Total 525 Balance 215 - Medications Medications: Current Medications Acetaminophen (Tylenol 325mg Tab) 650 mg PO Q6H PRN PRN Reason: Fever >100.4 F Albuterol/Ipratropium (Duoneb 3 Mg/0.5 Mg (3 Ml) Ud) 3 ml IH Q2H PRN PRN Reason: Shortness of Breath Albuterol/Ipratropium (Duoneb 3 Mg/0.5 Mg (3 Ml) Ud) 3 ml IH [id number] [facility] Last Admin: 12/21/17 08:05 Dose: 3 ml Allopurinol (Zyloprim) 100 mg PO DAILY [facility] Last Admin: 12/21/17 11:58 Dose: 100 mg Amlodipine Besylate (Norvasc) 5 mg PO DAILY [facility] Last Admin: 12/21/17 11:57 Dose: 5 mg Arformoterol Tartrate (Brovana) 15 mcg IH [id number] [facility] Last Admin: 12/21/17 08:05 Dose: 15 mcg Azithromycin (Zithromax) 250 mg PO DAILY [facility] PRN Reason: Protocol Stop: 12/26/17 10:01 Budesonide (Pulmicort Respules) 0.5 mg IH [id number] [facility] Last Admin: 12/21/17 08:04 Dose: 0.5 mg Heparin Sodium (Porcine) (Heparin) 5,000 units SC Q12 [facility] PRN Reason: Protocol Last Admin: 12/21/17 11:59 Dose: 5,000 units Ceftriaxone Sodium (Rocephin 1 Gram Ivpb) 1 gm in 100 mls @ 100 mls/hr IVPB DAILY [facility] PRN Reason: Protocol Last Admin: 12/21/17 11:59 Dose: 100 mls/hr Ibuprofen (Motrin Tab) 400 mg PO Q6H PRN PRN Reason: Pain, Mild (1-3) Last Admin: 12/20/17 23:12 Dose: 400 mg Methylprednisolone (Solu-Medrol) 60 mg IVP Q12 [facility] Last Admin: 12/21/17 12:00 Dose: 60 mg Montelukast Sodium (Singulair) 10 mg PO HS [facility] Last Admin: 12/20/17 22:55 Dose: 10 mg Pantoprazole Sodium (Protonix Ec Tab) 40 mg PO 0600 [facility] Last Admin: 12/21/17 05:50 Dose: 40 mg Tamsulosin HCl (Flomax) 0.4 mg PO DAILY [facility] Last Admin: 12/21/17 11:57 Dose: 0.4 mg - Labs Labs: 12/21/17 09:50 12/21/17 09:50 PT 13.0 SECONDS (9.4-12.5) H 12/19/17 16:30 INR 1.14 12/19/17 16:30 APTT 29.5 Seconds (25.1-36.5) 12/20/17 02:55 - Constitutional Appears: Well, Non-toxic, No Acute Distress - Head Exam Head Exam: ATRAUMATIC, NORMAL INSPECTION, NORMOCEPHALIC - Eye Exam Eye Exam: EOMI, Normal appearance Pupil Exam: PERRL - ENT Exam ENT Exam: Mucous Membranes Moist - Neck Exam Neck Exam: Normal Inspection - Respiratory Exam Respiratory Exam: Clear to Ausculation Bilateral, Wheezes, NORMAL BREATHING PATTERN. absent: Rhonchi, Respiratory Distress Additional comments: no cough. currently on 2 L NC - Cardiovascular Exam Cardiovascular Exam: Tachycardia, RRR, +S1, +S2 Additional comments: Systolic murmur at R second ICS Mild tachycardia - GI/Abdominal Exam GI & Abdominal Exam: Soft, Normal Bowel Sounds. absent: Distended, Firm, Tenderness, Organomegaly - Extremities Exam Extremities Exam: Pedal Edema (trace). absent: Calf Tenderness, Joint Swelling - Back Exam Back Exam: NORMAL INSPECTION - Neurological Exam Neurological Exam: Alert, Awake, Oriented x3 - Psychiatric Exam Psychiatric exam: Normal Affect, Normal Mood - Skin Skin Exam: Dry, Intact, Normal Color Assessment and Plan - Assessment and Plan (Free Text) Assessment: Assessment: Assessment: 87 year old [place] male with a past medical history significant for HTN, COPD , gout, OA and BPH who [place] [facility] [place] complaining of [place]. Patient admitted and will be treated for COPD exacerbation. Plan: 1. Chest Pain r/o ACS 2/2 CAP vs CHF - patient complained of bilateral upper chest pain. No nausea, vomiting, radiation into arm, or diaphoresis late this morning - EKG was ordered and no acute ST wave elevations or T wave inversions per read - troponin x2 was negative. f/u 3rd troponin later this afternoon - Motrin given for pain. Pain resolved and patient returned back to comfort baseline. Discontinued d/t BISHNU - low likelihood of cardiac etiology of pain. Pneumonia and hx of pulmonary fibrosis can give pain, and patient reports occasional heartburn - cardiology consult placed (Dr. Bach) 2. BISHNU - BUN/Cr 51/1.8 - Fluids held due to severe cardiomegaly and severe vascular congestion - Lasix held - will continue to monitor 3. COPD Exacerbation -Chest X-Ray showed a new heterogenous opacity suspicious for pneumonia -f/u Sputum culture, Mycoplasma, Chlamydia - Hepatitis panel and HIV and Legionella negative -IV Rocephin and Zithromax 250 PO day 2 -IV Solu-Medrol 60mg Q12. Leukocytosis 17.5 likely secondary to steroids - Procal 0.09 - Lactate trending up 0.8 to 2.1 to 2.9 yesterday - Duonebs Q6 scheduled and Q2 PRN - Brovan and Pulmicort Q12 - Singulair PO daily - AM Chest X-Ray showing R lobe infiltrate - O2 via NC at 2L/minute - Pulmonology consulted - ID consult placed 4. Hyperkalemia- resolved - Potassium 4.4 - will continue to monitor 5. History of HTN -Continue home Norvasc 6. History of Gout - Continue home Allopurinol GI Prophylaxis: Protonix DVT Prophylaxis: Heparin Diet: Heart Healthy Patient seen, case reviewed, and plan discussed with Dr. Mendoza. Carlyle Thayer, PGY-1 Jes Baez - Last Filed: 12/21/17 15:20> Objective - Vital Signs/Intake and Output Vital Signs (last 24 hours): Temp Pulse Resp BP Pulse Ox 97.4 F L 82 20 132/76 100 12/21/17 06:00 12/21/17 11:57 12/21/17 06:00 12/21/17 12:00 12/21/17 06:00 Intake and Output: 12/21/17 12/21/17 06:59 18:59 Intake Total 740 Output Total 525 Balance 215 - Medications Medications: Current Medications Acetaminophen (Tylenol 325mg Tab) 650 mg PO Q6H PRN PRN Reason: Fever >100.4 F Albuterol/Ipratropium (Duoneb 3 Mg/0.5 Mg (3 Ml) Ud) 3 ml IH Q2H PRN PRN Reason: Shortness of Breath Albuterol/Ipratropium (Duoneb 3 Mg/0.5 Mg (3 Ml) Ud) 3 ml IH [id number] [facility] Last Admin: 12/21/17 13:46 Dose: 3 ml Allopurinol (Zyloprim) 100 mg PO DAILY [facility] Last Admin: 12/21/17 11:58 Dose: 100 mg Amlodipine Besylate (Norvasc) 5 mg PO DAILY [facility] Last Admin: 12/21/17 11:57 Dose: 5 mg Arformoterol Tartrate (Brovana) 15 mcg IH [id number] [facility] Last Admin: 12/21/17 08:05 Dose: 15 mcg Azithromycin (Zithromax) 250 mg PO DAILY [facility] PRN Reason: Protocol Stop: 12/26/17 10:01 Budesonide (Pulmicort Respules) 0.5 mg IH [id number] [facility] Last Admin: 12/21/17 08:04 Dose: 0.5 mg Heparin Sodium (Porcine) (Heparin) 5,000 units SC Q12 [facility] PRN Reason: Protocol Last Admin: 12/21/17 11:59 Dose: 5,000 units Ceftriaxone Sodium (Rocephin 1 Gram Ivpb) 1 gm in 100 mls @ 100 mls/hr IVPB DAILY [facility] PRN Reason: Protocol Last Admin: 12/21/17 11:59 Dose: 100 mls/hr Methylprednisolone (Solu-Medrol) 60 mg IVP Q12 [facility] Last Admin: 12/21/17 12:00 Dose: 60 mg Montelukast Sodium (Singulair) 10 mg PO HS [facility] Last Admin: 12/20/17 22:55 Dose: 10 mg Pantoprazole Sodium (Protonix Ec Tab) 40 mg PO 0600 [facility] Last Admin: 12/21/17 05:50 Dose: 40 mg Tamsulosin HCl (Flomax) 0.4 mg PO DAILY [facility] Last Admin: 12/21/17 11:57 Dose: 0.4 mg - Labs Labs: 12/21/17 09:50 12/21/17 09:50 PT 13.0 SECONDS (9.4-12.5) H 12/19/17 16:30 INR 1.14 12/19/17 16:30 APTT 29.5 Seconds (25.1-36.5) 12/20/17 02:55 Attending/Attestation - Attestation I have personally seen and examined this patient.: Yes I have fully participated in the care of the patient.: Yes I have reviewed all pertinent clinical information, including history, physical exam and plan: Yes Notes (Text): 12/21/17 15:16 87 year old male with past medical history of hypertension, COPD and arthritis who presented with chest pain, cough and shortness of breath. Symptoms secondary to COPD exacerbation and pneumonia (CXR showed right mid-low lung opacity). Serial cardiac enzymes are negative. Continue with iv steroids and iv antibiotics. Lactic acid was elevated, however patient does not have fever, leukocytosis or elevated procalcitonin. CXR also showed moderate congestion. ProBNP only mildy elevated. Echocardiogram is ordered. Patient was on lasix but held today due to mild BISHNU. He is being followed by pulmonary, cardiology and ID; will follow up on recommendations. Jes Mendoza MD Hospitalist.
--- NOTE | 2017-12-21 18:03 | PN ---
Copied To: Octavio Bach MD Attending MD: Octavio Bach MD DATE: 12/21/2017 SUBJECTIVE: The patient is experiencing productive cough. He denies any retrosternal chest pain. No report of ventricular arrhythmia. PHYSICAL EXAMINATION: VITAL SIGNS: Blood pressure 106/55, heart rate 88, temperature 97.4, and respirations 20. HEENT: Normocephalic. CHEST: Right basal coarse crepitations. HEART: S1 and S2, regular. ABDOMEN: Soft. EXTREMITIES: Trace leg edema. LABORATORY DATA: Today's hemoglobin and hematocrit 12 and 36.3, white count 17.5, and platelet count 273,000. SMA-7: Sodium 140, potassium 4.4, chloride 103, CO2 of 22. Glucose 128. BUN 51, creatinine 1.8. ASSESSMENT: 1. Pneumonia. 2. Pulmonary fibrosis. 3. Acute renal insufficiency. 4. Gouty arthritis. RECOMMENDATIONS: Continue current p.o. Zithromax 250 mg once a day. Continue Solu-Medrol 60 mg intravenously twice a day, IV Rocephin at 1 g daily, Norvasc at 5 mg once a day, heparin 5000 units every 12 hours, and albuterol inhaler. Discontinue Lasix. The case was discussed with Dr. Mendoza. Octavio Bach MD
[2017-12-21] MEDS: MethylPREDNISolone 40 mg Vial IVP SCH (21:27)
--- NOTE | 2017-12-21 22:21 | PN ---
Copied To: Santiago Valdez MD Attending MD: Santiago Valdez MD DATE: 12/21/2017 PULMONARY PROGRESS NOTE REFERRING PHYSICIAN: Dr. Mendoza. SUBJECTIVE: He is out of bed to chair, feels little better. Decreased cough and shortness breath. No chest pain. No nausea, no vomiting, no diarrhea. No leg pain or leg swelling. OBJECTIVE: GENERAL: In no acute distress. VITAL SIGNS: Temperature is 98, heart rate 91, respiratory is 20, blood pressure 104/61, pulse ox 96% on 2 liters nasal cannula. HEENT: Moist mucous membrane. Crowded airway. NECK: Supple. No JVD. LUNGS: Has crackles on the bases with rhonchi. HEART: S1 and S2. ABDOMEN: Soft, nontender. No organomegaly. EXTREMITIES: There is no edema. NEUROLOGIC: Awake and alert, follows simple command. MEDICATIONS: He is on Brovana 15 mcg inhaled twice a day, DuoNeb p.r.n. basis, Flomax 0.4 mg daily, heparin 5000 units subcu every 12 hours, Norvasc 5 mg daily, Protonix 40 mg daily, Pulmicort inhaled twice a day, Rocephin 1 g IV daily, Singulair 10 mg daily, Solu-Medrol 60 mg every 12 hours, Tylenol p.r.n., Zithromax 250 mg daily, allopurinol 100 mg daily. LABORATORY DATA: Shows hemoglobin 12, hematocrit 36.3, WBC 17.5, platelet count is 273. Sodium 140, potassium 4.4, chloride 103, bicarbonate 21, BUN 51, creatinine 1.8, glucose 128, AST 21, ALT 7, alk phos is 70. Albumin is 4.1. Laboratory data shows blood culture, there is no growth. Urine culture, there is no growth. Had echocardiogram done and report is pending. CT scan of the chest done which suggested of chronic interstitial lung disease with interstitial fibrosis and some extent honeycombing. IMPRESSION AND PLAN: Chronic obstructive lung disease with some pulmonary fibrosis, interstitial infiltrate, hypertension, degenerative joint disease. Pulmonary point of view improved, we will decrease Solu-Medrol to 40 mg every 12 hours, keep inhaled bronchodilator, gastric prophylaxis, deep venous thrombosis prophylaxis, waiting for echocardiogram to assure that cardiac dysfunction is not contributing to shortness of breath. Thank you and we will follow with you. Santiago Valdez MD
[2017-12-22] MEDS: Pantoprazole 40 mg EC Tab PO SCH (05:29)
--- NOTE | 2017-12-22 05:39 | CARD ---
APPROVED REPORT Date of service: 12/21/2017 EXAM: Two-dimensional and M-mode echocardiogram with Doppler and color Doppler. INDICATION 2D DIMENSIONS IVSd1.2 (0.7-1.1cm)LVDd4.8 (3.9-5.9cm) LVOT Diameter2.3 (1.8-2.4cm)PWd1.1 (0.7-1.1cm) LVDs3.2 (2.5-4.0cm)FS (%) 34.5 % LVEF (%)63.5 (>50%) M-Mode DIMENSIONS Left Atrium (MM)5.20 (2.5-4.0cm)Aortic Root3.80 (2.2-3.7cm) Aortic Cusp Exc.1.80 (1.5-2.0cm) Aortic Valve AoV Peak Kejsogxm490.0cm/Wilson Peak GR.22mmHgAI P 1/2 [id number] Mitral Valve MV E Ztmmhmxf040.0cm/sMV A Omdanhlb334.0cm/sE/A ratio0.9 TDI Lateral E' Peak V8.77cm/sMedial E' Peak V4.97cm/sE/Lateral E'15.6 E/Medial E'27.6 Tricuspid Valve TR Peak [id number]/sRAP [id number] Peak Gr.35mmHg [id number] LEFT VENTRICLE The left ventricle is normal size. There is normal left ventricular wall thickness. The left ventricular function is normal. The left ventricular ejection fraction is within the normal range. There is normal LV segmental wall motion. RIGHT VENTRICLE The right ventricle is normal size. The right ventricular systolic function is normal. ATRIA The left atrium size is normal. The right atrium size is normal. The interatrial septum is intact with no evidence for an atrial septal defect. AORTIC VALVE The aortic valve is mildly to moderately sclerotic. There is mild to moderate aortic regurgitation. There is no aortic valvular stenosis. MITRAL VALVE The mitral valve is normal in structure. There is no mitral valve regurgitation noted. TRICUSPID VALVE The tricuspid valve is normal in structure. There is no tricuspid valve regurgitation noted. GREAT VESSELS The aortic root is normal in size. The IVC is normal in size and collapses >50% with inspiration. PERICARDIAL EFFUSION There is no pleural effusion. There is no pericardial effusion. <Conclusion> Normal chamber size. Normal LV systolic function. The aortic valve is mildly to moderately sclerotic. There is mild to moderate aortic regurgitation.
[2017-12-22 07:03] LABS: GRAN # 10.23 (1.4-6.5); GRAN % 90.2 % (50.0-68.0); HEMOGLOBIN 11.8 g/dL (14.0-18.0); LYMPH # 0.8 (1.2-3.4); LYMPH % 7.1 % (22.0-35.0); MEAN CELL VOLUME 87.3 fl (80.0-105.0); MEAN CORPUSCULAR HEMOGLOBIN 28.8 pg (25.0-35.0); MEAN PLATELET VOLUME 10.1 fl (7.0-11.0); MONO # 0.3 (0.1-0.6); MONO % 2.7 % (1.0-6.0); RBC 4.1 10^6/uL (3.5-6.1); WHITE BLOOD COUNT 11.3 10^3/ul (4.5-11.0)
[2017-12-22] MEDS: Arformoterol 15 mcg/2 ml Inh Sol IH SCH ×2 (07:32→20:22)
[2017-12-22] MEDS: Budesonide 0.5 mg/2 ml Inhal Susp UD IH SCH ×2 (07:32→20:22)
[2017-12-22 07:42] LABS: ALB/GLOB RATIO 0.9 (1.1-1.8); ALBUMIN 3.4 g/dL (3.0-4.8)
[2017-12-22] MEDS: cefTRIAXone 1 gm 1 GM/100 ML BAG IVPB SCH (09:30)
[2017-12-22] MEDS: MethylPREDNISolone 40 mg Vial IVP SCH ×2 (09:30→21:29)
--- NOTE | 2017-12-22 11:44 | CP.PCM.PN ---
<Carlyle Thayer - Last Filed: 12/22/17 11:39> Subjective - Date & Time of Evaluation Date of Evaluation: 12/22/17 Time of Evaluation: 08:00 - Subjective Subjective: Carlyle Thayer PGY-1 Progess Note for Hospitalist Service Patient seen and evaluated at bedside. No acute events overnight. Patient admits to L foot pins and needles sensation and resolving cough but denies chest pain, shortness of breath, palpitations, sputum production, dysuria, and difficulty ambulating. Objective - Vital Signs/Intake and Output Vital Signs (last 24 hours): Temp Pulse Resp BP Pulse Ox 97.4 F L 85 20 122/88 100 12/22/17 06:00 12/22/17 09:29 12/22/17 06:00 12/22/17 09:29 12/22/17 06:00 Intake and Output: 12/22/17 12/22/17 06:59 18:59 Intake Total 180 Balance 180 - Medications Medications: Current Medications Acetaminophen (Tylenol 325mg Tab) 650 mg PO Q6H PRN PRN Reason: Fever >100.4 F Albuterol/Ipratropium (Duoneb 3 Mg/0.5 Mg (3 Ml) Ud) 3 ml IH Q2H PRN PRN Reason: Shortness of Breath Allopurinol (Zyloprim) 100 mg PO DAILY [facility] Last Admin: 12/22/17 09:29 Dose: 100 mg Amlodipine Besylate (Norvasc) 5 mg PO DAILY [facility] Last Admin: 12/22/17 09:29 Dose: 5 mg Arformoterol Tartrate (Brovana) 15 mcg IH [id number] [facility] Last Admin: 12/22/17 07:32 Dose: 15 mcg Azithromycin (Zithromax) 250 mg PO DAILY [facility] PRN Reason: Protocol Stop: 12/26/17 10:01 Last Admin: 12/22/17 09:29 Dose: 250 mg Budesonide (Pulmicort Respules) 0.5 mg IH [id number] [facility] Last Admin: 12/22/17 07:32 Dose: 0.5 mg Heparin Sodium (Porcine) (Heparin) 5,000 units SC Q12 [facility] PRN Reason: Protocol Last Admin: 12/22/17 09:29 Dose: 5,000 units Methylprednisolone (Solu-Medrol) 40 mg IVP Q12 [facility] Last Admin: 12/22/17 09:30 Dose: 40 mg Montelukast Sodium (Singulair) 10 mg PO HS [facility] Last Admin: 12/21/17 21:27 Dose: 10 mg Pantoprazole Sodium (Protonix Ec Tab) 40 mg PO 0600 [facility] Last Admin: 12/22/17 05:29 Dose: 40 mg Tamsulosin HCl (Flomax) 0.4 mg PO DAILY [facility] Last Admin: 12/22/17 09:29 Dose: 0.4 mg - Labs Labs: 12/22/17 06:00 12/22/17 06:00 PT 13.0 SECONDS (9.4-12.5) H 12/19/17 16:30 INR 1.14 12/19/17 16:30 APTT 29.5 Seconds (25.1-36.5) 12/20/17 02:55 - Constitutional Appears: Well, Non-toxic, No Acute Distress - Head Exam Head Exam: ATRAUMATIC, NORMAL INSPECTION, NORMOCEPHALIC - Eye Exam Eye Exam: EOMI, Normal appearance Pupil Exam: PERRL - ENT Exam ENT Exam: Mucous Membranes Moist - Neck Exam Neck Exam: Normal Inspection - Respiratory Exam Respiratory Exam: Improved crackles at bases from yesterday, NORMAL BREATHING PATTERN. absent: Rhonchi, Respiratory Distress Additional comments: no cough. currently off NC - Cardiovascular Exam Cardiovascular Exam: RRR, +S1, +S2 Additional comments: Systolic murmur at R second ICS - GI/Abdominal Exam GI & Abdominal Exam: Soft, Normal Bowel Sounds. absent: Distended, Firm, Tenderness, Organomegaly - Extremities Exam Extremities Exam: R knee swelling. Pedal Edema up to mid calf R>L (1+). absent : Calf Tenderness, warmth, erythema - Back Exam Back Exam: NORMAL INSPECTION - Neurological Exam Neurological Exam: Alert, Awake, Oriented x3 - Psychiatric Exam Psychiatric exam: Normal Affect, Normal Mood - Skin Skin Exam: Dry, Intact, Normal Color Assessment and Plan - Assessment and Plan (Free Text) Assessment: Assessment: 87 year old [place] male with a past medical history significant for HTN, COPD , gout, OA and BPH who presented to [place] [facility] complaining of SOB. Patient admitted and will be treated for COPD exacerbation. Plan: 1. Chest Pain r/o ACS 2/2 CAP vs CHF - patient complained of bilateral upper chest pain. No nausea, vomiting, radiation into arm, or diaphoresis late this morning - EKG was ordered and no acute ST wave elevations or T wave inversions per read - troponin x2 was negative. f/u 3rd troponin later this afternoon - Motrin given for pain. Pain resolved and patient returned back to comfort baseline. On hold d/t BISHNU - low likelihood of cardiac etiology of pain. Pneumonia and hx of pulmonary fibrosis can give pain, and patient reports occasional heartburn - cardiology consult placed (Dr. Bach) - Echo performed 12/21 showed EF 63.5%, aortic valve mildly to moderately sclerotic and mild/moderate aortic regurgitation 2. BISHNU - BUN/Cr 51/1.8 yesterday and 61/1.7 today - Fluids held due to severe cardiomegaly and severe vascular congestion - Lasix held - will continue to monitor 3. COPD Exacerbation 2/2 PNA - Chest X-Ray showed a new heterogenous opacity suspicious for pneumonia - f/u Sputum culture, Mycoplasma, Chlamydia - Hepatitis panel and HIV and Legionella negative - IV Rocephin 1 g and Zithromax 250 PO day 3 - IV Solu-Medrol decreased to 30mg Q12 based on improved clinical picture. Improved crackles in lungs, ambulating well, not short of breath - Leukocytosis resolved 11.3 but slightly elevated likely secondary to steroids - Procal 0.09 - Lactate trending up 0.8 to 2.1 to 2.9 on 12/20 - Duonebs Q6 scheduled and Q2 PRN - Brovan and Pulmicort Q12 - Singulair PO daily - O2 via NC at 2L/minute as needed - currently off - Pulmonology consulted - ID consult placed 4. L leg pain - Patient describes pin and needles sensation - Acetaminophen 650 q6h PRN 5. Hyperkalemia - Potassium 5.1 - will continue to monitor 6. History of HTN -Continue home Norvasc 5 7. History of Gout - Continue home Allopurinol GI Prophylaxis: Protonix DVT Prophylaxis: Heparin Diet: Heart Healthy Patient seen, case reviewed, and plan discussed with Dr. Mendoza. Carlyle Thayer, PGY-1 <Jes Mendoza - Last Filed: 12/22/17 13:02> Objective - Vital Signs/Intake and Output Vital Signs (last 24 hours): Temp Pulse Resp BP Pulse Ox 97.4 F L 85 20 122/88 100 12/22/17 06:00 12/22/17 09:29 12/22/17 06:00 12/22/17 09:29 12/22/17 06:00 Intake and Output: 12/22/17 12/22/17 06:59 18:59 Intake Total 180 Balance 180 - Medications Medications: Current Medications Acetaminophen (Tylenol 325mg Tab) 650 mg PO Q6H PRN PRN Reason: Fever >100.4 F Albuterol/Ipratropium (Duoneb 3 Mg/0.5 Mg (3 Ml) Ud) 3 ml IH Q2H PRN PRN Reason: Shortness of Breath Allopurinol (Zyloprim) 100 mg PO DAILY [facility] Last Admin: 12/22/17 09:29 Dose: 100 mg Amlodipine Besylate (Norvasc) 5 mg PO DAILY [facility] Last Admin: 12/22/17 09:29 Dose: 5 mg Arformoterol Tartrate (Brovana) 15 mcg IH [id number] [facility] Last Admin: 12/22/17 07:32 Dose: 15 mcg Azithromycin (Zithromax) 250 mg PO DAILY [facility] PRN Reason: Protocol Stop: 12/26/17 10:01 Last Admin: 12/22/17 09:29 Dose: 250 mg Budesonide (Pulmicort Respules) 0.5 mg IH [id number] [facility] Last Admin: 12/22/17 07:32 Dose: 0.5 mg Heparin Sodium (Porcine) (Heparin) 5,000 units SC Q12 [facility] PRN Reason: Protocol Last Admin: 12/22/17 09:29 Dose: 5,000 units Methylprednisolone (Solu-Medrol) 30 mg IVP Q12 [facility] Montelukast Sodium (Singulair) 10 mg PO HS [facility] Last Admin: 12/21/17 21:27 Dose: 10 mg Pantoprazole Sodium (Protonix Ec Tab) 40 mg PO 0600 [facility] Last Admin: 12/22/17 05:29 Dose: 40 mg Tamsulosin HCl (Flomax) 0.4 mg PO DAILY [facility] Last Admin: 12/22/17 09:29 Dose: 0.4 mg - Labs Labs: 12/22/17 06:00 12/22/17 06:00 PT 13.0 SECONDS (9.4-12.5) H 12/19/17 16:30 INR 1.14 12/19/17 16:30 APTT 29.5 Seconds (25.1-36.5) 12/20/17 02:55 Attending/Attestation - Attestation I have personally seen and examined this patient.: Yes I have fully participated in the care of the patient.: Yes I have reviewed all pertinent clinical information, including history, physical exam and plan: Yes Notes (Text): 12/22/17 12:59 87 year old male with past medical history of hypertension, COPD and arthritis who presented with chest pain, cough and shortness of breath. Symptoms secondary to COPD exacerbation and pneumonia (CXR showed right mid-low lung opacity). Serial cardiac enzymes are negative. Continue with tapering iv steroids, albuterol, brovana, pulmicort and iv antibiotics. Lactic acid was elevated, however patient does not have fever or elevated procalcitonin. He had leukocytosis, likely secondary to iv steroids, which is improving. CXR also showed moderate congestion. ProBNP only mildy elevated. Echocardiogram shows preserved EF. Patient had mild BISHNU which is slightly improved today. Lasix is on hold. Possible d/c planning 24 hrs if symptoms continue to improve. Jes Mendoza MD Hospitalist.
--- NOTE | 2017-12-22 13:36 | PN ---
Copied To: Sanjiv Mendoza MD Attending MD: Sanjiv Mendoza MD DATE: 12/22/2017 SUBJECTIVE: The patient is in bed, in no acute distress, nontoxic. OBJECTIVE: VITAL SIGNS: On exam, temperature is 97, blood pressure is 120/80, respiratory rate 20, heart rate of 91. HEENT: Examination is unremarkable. NECK: Supple. LUNGS: Have decreased breath sounds. HEART: Normal S1, S2. ABDOMEN: Soft, nontender. DATA: Laboratory examination reveals a white count of 11,300, hemoglobin 11, platelets of 286. Chemistries reveal the BUN of 61, creatinine is 1.7, procalcitonin is 0.09. Urinalysis is noted. Serology reveals HIV is negative. Urine for Legionella is negative and hepatitis profile is negative and blood cultures, there are no growth. Urine cultures, there are no growth and the patient has had two procalcitonins, which are also negative and current medication review reveals the patient to be on ceftriaxone, Solu-Medrol and Zithromax and Dr. Valdez's note from yesterday is reviewed, chronic obstructive lung disease, pulmonary fibrosis. ASSESSMENT AND PLAN: This is an 87-year-old male who was seen earlier today in room 362, bed 1 with end-stage chronic obstructive lung disease; right-sided community-acquired pneumonia with hypertension; osteoarthritis; gout; benign prostatic hypertrophy, on ceftriaxone and Zithromax day #3 with two negative procalcitonins and a CAT scan without any acute changes. Urinalysis is noted. Urine Legionella is negative and the hepatitis profile is negative. Urine culture is negative. Blood culture is negative.. We will the ceftriaxone, today is day #3 of p.o. Zithromax. May continue the p.o. Zithromax at this time and complete a course of therapy and we will discontinue the ceftriaxone, no antibacterial therapy necessary. Sanjiv Mendoza MD
[2017-12-22 17:13] VITALS: O2SAT 98
--- NOTE | 2017-12-22 18:05 | PN ---
Copied To: Octavio Bach MD Attending MD: Octavio Bach MD DATE: 12/22/2017 SUBJECTIVE: The patient is mildly short of breath, still experiencing productive cough. PHYSICAL EXAMINATION: VITAL SIGNS: Blood pressure 122/88, heart rate 85, temperature 97.4, and respirations 20. HEENT: Normocephalic. CHEST: Bibasilar coarse crepitations. HEART: S1 and S2 regular. EXTREMITIES: Trace leg edema. LABORATORY DATA: Hemoglobin and hematocrit 11.8 and 35.8, white count 11.3, platelet count 186,000. Today's SMA-7: Sodium 138, potassium 5.1, chloride 104, CO2 of 23, glucose 138, BUN 61, creatinine 1.7. ASSESSMENT: 1. Pulmonary fibrosis. 2. Acute renal failure. 3. Gouty arthritis. 4. Systemic hypertension. RECOMMENDATIONS: Continue current albuterol inhaler, Flomax 0.4 mg once a day, subcutaneous heparin 5000 units every 12 hours, Norvasc 5 mg once a day, Singulair 10 mg at bedtime, Solu-Medrol 30 mg intravenously every 12 hours, Zithromax 250 mg daily. Consider half-normal saline at 40 mL an hour. Octavio Bach MD
--- NOTE | 2017-12-22 19:51 | PN ---
Copied To: Santiago Valdez MD Attending MD: Santiago Valdez MD DATE: 12/22/2017 PULMONARY PROGRESS NOTE REFERRING PHYSICIAN: Dr. Mendoza. SUBJECTIVE: He is out of bed to chair. and son at bedside. Night was unremarkable. Feels better. Still have cough and sputum production. No nausea, no vomiting, no diarrhea. No leg pain or leg swelling. OBJECTIVE: GENERAL: In acute distress. VITAL SIGNS: Temperature is 98, heart rate 88, respiratory rate is 20, blood pressure 122/88, pulse ox 100% on nasal cannula. HEENT: Moist mucous membranes. No ulcer or thrush noted. NECK: Supple. No JVD. LUNGS: Prolonged expiratory phase with some crackles on the half way up. HEART: S1 and S2. ABDOMEN: Soft, nontender. No organomegaly. EXTREMITIES: No edema. NEUROLOGIC: Awake, alert, and follows simple command. MEDICATIONS: He is on Brovana inhaled twice a day, DuoNeb every 2 hours p.r.n., Flomax 0.4 mg daily, heparin 5000 subcu every 12 hours, Norvasc 5 mg daily, Protonix 40 mg daily, Pulmicort inhaled twice a day, Singulair 10 mg daily, Solu-Medrol 30 mg every 12 hours, Tylenol p.r.n., Zithromax 250 mg daily, allopurinol 100 mg daily. LABORATORY DATA: Shows hemoglobin 11.8, hematocrit 35.8, WBC 11.3, and platelet count is 286. Sodium 138, potassium 5.1, chloride 104, bicarbonate is 70. BUN 61, creatinine 1.7. Glucose 138. Calcium is 9. AST 15, ALT 16, alk phos is 86. Albumin is 3.4. Microbiology: Blood culture and urine culture, there is no growth. IMPRESSION AND PLAN: Chronic obstructive lung disease with pulmonary fibrosis, interstitial infiltrate. 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 Hypertension, degenerative joint disease. Spoke to the patient's son at bedside. All the questions answered. Continue IV and inhaled bronchodilator, gastric prophylaxis, antibiotics. Waiting for echocardiography available and showing right ventricular systolic pressure is 45. Normal left systolic function, mild valvular heart disease. We will continue IV and inhaled bronchodilator. Spoke to the patient's son and at bedside. All the questions answered. Thank you and we will follow with you. Santiago Valdez MD [facility] # [id number]
[2017-12-23] MEDS: Pantoprazole 40 mg EC Tab PO SCH (05:38)
[2017-12-23 06:40] LABS: GRAN # 7.43 (1.4-6.5); GRAN % 85.7 % (50.0-68.0); HEMOGLOBIN 11.9 g/dL (14.0-18.0); LYMPH % 11.1 % (22.0-35.0); MEAN CELL VOLUME 87.6 fl (80.0-105.0); MEAN CORPUSCULAR HEMOGLOBIN 28.3 pg (25.0-35.0); MEAN CORPUSCULAR HGB CONC 32.2 g/dl (31.0-37.0); MONO # 0.3 (0.1-0.6); MONO % 3.2 % (1.0-6.0); RBC 4.21 10^6/uL (3.5-6.1); RED CELL DISTRIBUTION WIDTH 13.9 % (11.5-14.5); WHITE BLOOD COUNT 8.7 10^3/ul (4.5-11.0)
[2017-12-23 07:05] LABS: ALB/GLOB RATIO 0.8 (1.1-1.8); ALBUMIN 3.4 g/dL (3.0-4.8); CALCIUM 8.7 mg/dL (8.4-10.5)
[2017-12-23] MEDS ORDERED: Sod Polystyrene Sulf 15 gm/60 ml Susp PO ONE (07:18)
[2017-12-23 08:16] VITALS: BP 114/70; PULSE 74; RESP 20; TEMP 97.8
[2017-12-23] MEDS: Budesonide 0.5 mg/2 ml Inhal Susp UD IH SCH (08:55)
[2017-12-23] MEDS: Arformoterol 15 mcg/2 ml Inh Sol IH SCH (08:55)
[2017-12-23] MEDS: MethylPREDNISolone 40 mg Vial IVP SCH (09:46)
--- NOTE | 2017-12-23 13:05 | PN ---
Copied To: Santiago Valdez MD Attending MD: Santiago Valdez MD DATE: 12/23/2017 PULMONARY PROGRESS NOTE REFERRING PHYSICIAN: Dr. Mendoza. SUBJECTIVE: He is out of bed to chair. Night was unremarkable. Feels better. Decreased cough. Decreased short of breath. No nausea. No vomiting, diarrhea, leg pain, leg swelling. OBJECTIVE: GENERAL: In no acute distress. VITAL SIGNS: Temperature is 98, heart rate is 74, respiratory rate is 20, blood pressure 114/70, pulse ox 98% on room air. HEENT: Moist mucous membrane. Crowded airway. NECK: Supple. No JVD. LUNGS: Have a prolonged expiratory phase. There are crackles one-third up at the both lung guerra. HEART: S1 and S2. ABDOMEN: Soft and nontender. No organomegaly. EXTREMITIES: No edema. NEUROLOGICAL: Awake and alert. Follows simple command. MEDICATIONS: He is on Brovana inhaled twice a day, DuoNeb every 2 hours p.r.n., Flomax 0.4 mg daily, heparin 5000 units subcu every 12 hours, Norvasc 5 mg daily, Protonix 40 mg daily, Pulmicort inhaled twice a day, Singulair 10 mg daily, Solu-Medrol 30 mg every 12 hours, Tylenol p.r.n., Zithromax 250 mg daily, allopurinol 100 mg daily. LABORATORY DATA: Shows hemoglobin 11.9, hematocrit 36.9, WBC 8.7, platelet count is 276. Sodium 137, potassium 4.2, chloride 104, bicarbonate 24, BUN 58, creatinine 1.4, glucose 135, calcium 8.7, AST 23, ALT 14, alk phos is 57, albumin is 3.4. Microbiology: Blood culture has been negative. 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 On top it, he was a smoker. Continue taper down steroids, antibiotics, inhaled bronchodilator. Fall precaution. Thank you and we will follow with you. Santiago Valdez MD
--- NOTE | 2017-12-23 14:48 | CP.PCM.PN ---
Subjective - Date & Time of Evaluation Date of Evaluation: 12/23/17 Time of Evaluation: 10:55 - Subjective Subjective: Afebrile, not in distress. Objective - Vital Signs/Intake and Output Vital Signs (last 24 hours): Temp Pulse Resp BP Pulse Ox 97.6 F 87 19 122/76 98 12/22/17 17:12 12/22/17 17:12 12/22/17 17:12 12/22/17 17:12 12/22/17 17:12 Intake and Output: 12/22/17 12/23/17 18:59 06:59 Intake Total 1620 Output Total 900 Balance 720 - Medications Medications: Current Medications Acetaminophen (Tylenol 325mg Tab) 650 mg PO Q6H PRN PRN Reason: Fever >100.4 F Albuterol/Ipratropium (Duoneb 3 Mg/0.5 Mg (3 Ml) Ud) 3 ml IH Q2H PRN PRN Reason: Shortness of Breath Allopurinol (Zyloprim) 100 mg PO DAILY [facility] Last Admin: 12/22/17 09:29 Dose: 100 mg Amlodipine Besylate (Norvasc) 5 mg PO DAILY [facility] Last Admin: 12/22/17 09:29 Dose: 5 mg Arformoterol Tartrate (Brovana) 15 mcg IH [id number] [facility] Last Admin: 12/22/17 20:22 Dose: 15 mcg Azithromycin (Zithromax) 250 mg PO DAILY [facility] PRN Reason: Protocol Stop: 12/26/17 10:01 Last Admin: 12/22/17 09:29 Dose: 250 mg Budesonide (Pulmicort Respules) 0.5 mg IH [id number] [facility] Last Admin: 12/22/17 20:22 Dose: 0.5 mg Heparin Sodium (Porcine) (Heparin) 5,000 units SC Q12 [facility] PRN Reason: Protocol Last Admin: 12/22/17 09:29 Dose: 5,000 units Methylprednisolone (Solu-Medrol) 30 mg IVP Q12 [facility] Montelukast Sodium (Singulair) 10 mg PO HS [facility] Last Admin: 12/21/17 21:27 Dose: 10 mg Pantoprazole Sodium (Protonix Ec Tab) 40 mg PO 0600 [facility] Last Admin: 12/22/17 05:29 Dose: 40 mg Tamsulosin HCl (Flomax) 0.4 mg PO DAILY [facility] Last Admin: 12/22/17 09:29 Dose: 0.4 mg - Labs Labs: 12/22/17 06:00 12/22/17 06:00 PT 13.0 SECONDS (9.4-12.5) H 12/19/17 16:30 INR 1.14 12/19/17 16:30 APTT 29.5 Seconds (25.1-36.5) 12/20/17 02:55 - Constitutional Appears: Chronically Ill - Head Exam Head Exam: NORMAL INSPECTION - ENT Exam ENT Exam: Mucous Membranes Moist - Neck Exam Neck Exam: absent: Meningismus - Respiratory Exam Respiratory Exam: Decreased Breath Sounds - Cardiovascular Exam Cardiovascular Exam: +S1, +S2 - GI/Abdominal Exam GI & Abdominal Exam: Soft. absent: Tenderness Assessment and Plan - Assessment and Plan (Free Text) Plan: Assessment no evidence of pneumonia on CT chest, but evidence of chronic fibrosis HTN COPD osteoarthritis gout benign prostatic hyperplasia history of umbilical hernia repair significant smoking history Plan continue to monitor off antibiotics since he is at risk for nosocomial infections
--- NOTE | 2017-12-23 17:40 | CP.PCM.DIS ---
Provider - Provider Date of Admission: 12/19/17 18:03 Attending physician: Jes Mendoza MD Primary care physician: Dr. Farrell Consults: Pulm- Dr. Valdez Cardio - Dr. Bach ID- Dr. Mendoza Time Spent in preparation of Discharge (in minutes): 45 Hospital Course - Lab Results Lab Results: Micro Results 12/20/17 12:00 Blood-Venous Blood Culture - Preliminary NO GROWTH AFTER 3 DAYS 12/20/17 11:30 Blood-Venous Blood Culture - Preliminary NO GROWTH AFTER 3 DAYS Most Recent Lab Values WBC 8.7 10^3/ul (4.5-11.0) D 12/23/17 06:10 RBC 4.21 10^6/uL (3.5-6.1) 12/23/17 06:10 Hgb 11.9 g/dL (14.0-18.0) L 12/23/17 06:10 Hct 36.9 % (42.0-52.0) L 12/23/17 06:10 MCV 87.6 fl (80.0-105.0) 12/23/17 06:10 MCH 28.3 pg (25.0-35.0) 12/23/17 06:10 MCHC 32.2 g/dl (31.0-37.0) 12/23/17 06:10 RDW 13.9 % (11.5-14.5) 12/23/17 06:10 Plt Count 276 10^3/uL (120.0-450.0) 12/23/17 06:10 MPV 10.0 fl (7.0-11.0) 12/23/17 06:10 Gran % 85.7 % (50.0-68.0) H 12/23/17 06:10 Lymph % (Auto) 11.1 % (22.0-35.0) L 12/23/17 06:10 Vance % (Auto) 3.2 % (1.0-6.0) 12/23/17 06:10 Eos % (Auto) 0.0 % (1.5-5.0) L 12/23/17 06:10 Baso % (Auto) 0.0 % (0.0-3.0) 12/23/17 06:10 Gran # 7.43 (1.4-6.5) H 12/23/17 06:10 Lymph # (Auto) 1.0 (1.2-3.4) L 12/23/17 06:10 [place] # (Auto) 0.3 (0.1-0.6) 12/23/17 06:10 Eos # (Auto) 0.0 (0.0-0.7) 12/23/17 06:10 Baso # (Auto) 0.00 K/mm3 (0.0-2.0) 12/23/17 06:10 Neutrophils % (Manual) 91 % (50.0-70.0) H 12/21/17 09:50 Lymphocytes % (Manual) 8 % (22.0-35.0) L 12/21/17 09:50 Monocytes % (Manual) 1 % (1.0-6.0) 12/21/17 09:50 Platelet Evaluation Normal (NORMAL) 12/21/17 09:50 PT 13.0 SECONDS (9.4-12.5) H 12/19/17 16:30 INR 1.14 12/19/17 16:30 APTT 29.5 Seconds (25.1-36.5) 12/20/17 02:55 pCO2 39 mm/Hg (35-45) 12/19/17 23:00 pO2 89 mm/Hg (30-55) H 12/20/17 02:55 HCO3 21.5 mmol/L (21-28) 12/19/17 23:00 ABG pH 7.35 (7.35-7.45) 12/19/17 23:00 ABG Total CO2 22.7 mmol.L (22-28) 12/19/17 23:00 ABG O2 Saturation 99.7 % (95-98) H 12/19/17 23:00 ABG Base Excess -3.8 mmol/L (-2.0-3.0) L 12/19/17 23:00 ABG Potassium 4.4 mmol/L (3.6-5.2) 12/19/17 23:00 VBG pH 7.37 (7.32-7.43) 12/20/17 02:55 VBG pCO2 40.0 (40-60) 12/20/17 02:55 VBG HCO3 23.1 mmol/l (21-28) 12/20/17 02:55 VBG Total CO2 24.3 mmol.L (22-28) 12/20/17 02:55 VBG O2 Sat (Calc) 97.8 % (40-65) H 12/20/17 02:55 VBG Base Excess -2.0 mmol/L (0.0-2.0) L 12/20/17 02:55 VBG Potassium 4.5 mmol/L (3.6-5.2) 12/20/17 02:55 Sodium 136.0 mmol/L (132-148) 12/20/17 02:55 Chloride 108.0 mmol/L (98-107) H 12/20/17 02:55 Glucose 188 mg/dl (75-110) H 12/20/17 02:55 Lactate 2.9 mmol/L (0.7-2.1) H 12/20/17 02:55 FiO2 21.0 % 12/20/17 02:55 Sodium 137 mmol/L (132-148) 12/23/17 06:10 Potassium 5.2 mmol/L (3.6-5.0) H 12/23/17 06:10 Chloride 104 mmol/L (98-107) 12/23/17 06:10 Carbon Dioxide 24 mmol/L (21-33) 12/23/17 06:10 Anion Gap 14 (10-20) 12/23/17 06:10 BUN 58 mg/dL (7-21) H 12/23/17 06:10 Creatinine 1.4 mg/dl (0.8-1.5) 12/23/17 06:10 Est GFR ( Amer) 58 12/23/17 06:10 Est GFR (Non-Af Amer) 48 12/23/17 06:10 Random Glucose 135 mg/dL (70-110) H 12/23/17 06:10 Lactic Acid 2.8 mmol/L (0.7-2.1) H 12/20/17 09:00 Calcium 8.7 mg/dL (8.4-10.5) 12/23/17 06:10 Phosphorus 3.3 mg/dL (2.5-4.5) 12/20/17 02:55 Magnesium 1.7 mg/dL (1.7-2.2) 12/20/17 02:55 Total Bilirubin 0.4 mg/dL (0.2-1.3) 12/23/17 06:10 AST 23 U/L (17-59) 12/23/17 06:10 ALT 14 U/L (7-56) 12/23/17 06:10 Alkaline Phosphatase 57 U/L (38-126) 12/23/17 06:10 Lactate Dehydrogenase 276 U/L (333-699) L 12/20/17 10:00 Total Creatine Kinase 44 U/L (35-230) 12/20/17 10:00 Troponin I 0.01 ng/mL 12/20/17 16:20 NT-Pro-B Natriuret Pep 505 pg/mL (0-450) H 12/19/17 16:30 Total Protein 7.4 g/dL (5.8-8.3) 12/23/17 06:10 Albumin 3.4 g/dL (3.0-4.8) 12/23/17 06:10 Globulin 4.0 gm/dL 12/23/17 06:10 Albumin/Globulin Ratio 0.8 (1.1-1.8) L 12/23/17 06:10 Procalcitonin 0.09 NG/ML (0.19-0.49) L 12/20/17 16:20 Arterial Blood Potassium 4.4 mmol/L (3.6-5.2) 12/19/17 23:00 Venous Blood Potassium 4.5 mmol/L (3.6-5.2) 12/20/17 02:55 Urine Color Yellow (YELLOW) 12/19/17 18:00 Urine Appearance Clear (CLEAR) 12/19/17 18:00 Urine pH 6.0 (4.7-8.0) 12/19/17 18:00 Ur Specific [place] 1.020 (1.005-1.035) 12/19/17 18:00 Urine Protein Trace mg/dL (<30 mg/dL) H 12/19/17 18:00 Urine Glucose (UA) Negative mg/dL (NEGATIVE) 12/19/17 18:00 Urine Ketones Negative mg/dL (NEGATIVE) 12/19/17 18:00 Urine Blood Trace-intact (NEGATIVE) H 12/19/17 18:00 Urine Nitrate Negative (NEGATIVE) 12/19/17 18:00 Urine Bilirubin Negative (NEGATIVE) 12/19/17 18:00 Urine Urobilinogen 0.2 E.U./dL (<1 E.U./dL) 12/19/17 18:00 Ur Leukocyte Esterase Negative [place]/uL (NEGATIVE) 12/19/17 18:00 Urine RBC 10 - 15 /hpf (0-2) 12/19/17 18:00 Urine WBC 2 - 5 /hpf (0-6) 12/19/17 18:00 Ur Epithelial Cells 4 - 5 /hpf (0-5) 12/19/17 18:00 Hepatitis A IgM Ab Negative (NEGATIVE) 12/20/17 02:55 Hep Bs Antigen Negative (NEGATIVE) 12/20/17 02:55 Hep B Core IgM Ab Negative (NEGATIVE) 12/20/17 02:55 Hepatitis C Antibody Negative (NEGATIVE) 12/20/17 02:55 HIV 1&2 Ag/Ab, 4th Gen Nonreactive (Nonreactive) 12/20/17 02:55 Ur L.pneumophila Ag Negative (NEGATIVE) 12/19/17 21:20 Mycoplasma pneumon IgG 1.37 (<=0.90) H 12/20/17 02:55 Mycoplasma pneumon IgM 167 U/mL (<770) 12/20/17 02:55 - Hospital Course Hospital Course: Carlyle Thayer, PGY-1 Discharge Summary for Hospitalist Service Mr. Vyas is an 87 year old [place] male with a past medical history significant for HTN, COPD, gout, OA and BPH who presented to the [facility] ED complaining of SOB. Patient spoke Spanish and translation was provided via simplex operator. Patient was eating lunch earlier in the day when his reported that he started screaming that he couldn't breathe and she then decided to bring him to the ED for further evaluation. For the past two weeks, the patient has been notably more fatigued, with SOB and productive cough according to the patients . He was evaluated by his PMD two weeks ago and was given an unspecified pill that has not provided any relief. He denied any fevers, chills, headache, changes in his vision, chest pain, palpitations, pleurisy, hemoptysis, abdominal pain, N/V/D/C, melena, changes in urine output, skin changes/lesions, or any numbness/tingling/weakness of any extremity. In the ED, chest x-ray showed a new heterogenous opacity suspicious for pneumonia and an EKG showed NSR at 75 bpm with frequent PVC's. Patient was given one nebulized breathing treatment, one dose of IV steroids and one dose of Cefepime. Hospital Course: This is a patient who presented with shortness of breath to [facility], which has been ongoing for 2 weeks. His chest X-ray 12/19 showed a new heterogenous opacity suspicious for pneumonia. Sputum cultures were negative. The hepatitis, HIV, and Legionella panel were also negative. Patient was given IV Rocephin 1 g, Zithromax IV, Duonebs Q6 scheduled and Q2 PRN, Brovan Q12, Pulmicort Q12, Singulair PO daily, 2L of oxygen via nasal canula a and IV solu-Medrol 60 BID. Patient had slight elevation of leukocyte count, likely secondary to steroid use. Lactate levels were trending up 0.8 to 2.1 to 2.9 on 12/20. Pulmonology and ID were consulted. IV steroids were tapered down over the hospital course to 30 IV BID and Zithromax was converted to PO. Patient also complained about having bilateral upper chest pain, with no nausea , vomiting, radiation into arm, or diaphoresis. EKG was ordered and showed no acute ST wave elevations or T wave inversions. Troponin was negative x3. Motrin was given for pain, which resolved and returned patient to baseline. Cardiology (Dr. Bach) was consulted. Echo was performed on 12/21 which showed EF 63.5%, aortic valve mildly/moderately sclerotic and mild/moderate aortic regurgitation. Patient had an episode of BISHNU on 12/22 with BUN/Cr 61/1.7. Fluids were held due to severe cardiomegaly and vascular congestion. Lasix were held as well and patients labs were continually monitored. The patient also had complaints of L leg pain, that he described as a pins & needles sensation, was treated with Acetaminophen 650 Q6 PRN. Patient expressed relief. Physical therapy was ordered to evaluate gait. PT had recommendations to send home with services. Patient's hyperkalemia (5.1) was also being monitored. His history of hypertension and Gout was treated with Norvasc 5 and Allopurinol, respectively. Levels were monitored and issue resolved. Patient was on GI/DVT prophylaxis with Protonix and Heparin, respectively. Patient was sent home with Prednisone 40 mg PO daily for 5 days as well as Azithromycin 250 POfor 3 more days, as well as Brovana, Pulmicort and Singulair. Patient was in full agreement with discharge instructions and questions were answered to patient's satisfaction. Patient demonstrated understanding of new prescriptions and plan moving forward. Patient was hemodynamically stable and without complaints and ready for discharge. Patient seen, case reviewed, and plan discussed with Dr. Collins. Carlyle Thayer, PGY-1 Discharge Exam - Head Exam Head Exam: ATRAUMATIC, NORMAL INSPECTION - Eye Exam Eye Exam: EOMI Pupil Exam: PERRL - ENT Exam ENT Exam: Mucous Membranes Moist - Neck Exam Neck exam: Normal Inspection - Respiratory Exam Respiratory Exam: Wheezes (improved from yesterday, located at bases), NORMAL BREATHING PATTERN. absent: Rales, Rhonchi - Cardiovascular Exam Cardiovascular Exam: RRR, +S1, +S2 - GI/Abdominal Exam GI & Abdominal Exam: Normal Bowel Sounds, Soft, Unremarkable. absent: Distended , Firm, Guarding, Rebound - Extremities Exam Extremities exam: joint swelling (R knee), pedal edema (trace) - Neurological Exam Neurological exam: Alert, CN II-XII Intact, Oriented x3 - Psychiatric Exam Psychiatric exam: Normal Affect, Normal Mood - Skin Skin Exam: Dry, Intact, Normal Color, Warm Discharge Plan - Discharge Medications Prescriptions: Arformoterol [Brovana] 15 mcg IH [id number] #1 neb Azithromycin 250 mg PO DAILY #3 tablet Budesonide [Pulmicort Respules] 0.5 mg IH [id number] #1 neb Montelukast [Singulair] 10 mg PO HS #14 tab predniSONE [Prednisone] 40 mg PO DAILY #5 tab - Follow Up Plan Condition: FAIR Disposition: HOME/ ROUTINE Patient education suggested?: Yes Instructions: Arformoterol, Azithromycin (Systemic), Montelukast, Prednisone, Budesonide (Oral Inhalation) Additional Instructions: PLEASE TAKE ALL MEDICATIONS PRESCRIBED You have been sent home on five new medications as follows: 1. Brovana 2. Pulmicort 3. Singulair 4. Azithromycin: Will need to finish three day course 5. Prednisone: Will need to finish five days to completion Please follow up with your primary care doctor, Dr. Farrell, within one week for post hospitalization follow up Please follow up with pulmonology within one week. Dr. Valdez is the rat trapper who saw you in the hospital and his contact information has been provided for you Should your symptoms worsen or persist, please seek emergency medical attention Referrals: Santiago Valdez MD [Staff Provider] -
--- NOTE | 2017-12-23 22:39 | CARD ---
APPROVED REPORT Date of service: 12/23/2017 EKG Measurement Heart [id number] <Conclusion> Sinus rhythm with occasional premature ventricular complexes Possible Left atrial enlargement Borderline ECG
[2017-12-24 19:10] LABS: CHLAMYDIA PNEUMONIAE IgM <1:10 (<1:10)
== END 2017-12-23 17:17 | disposition home or self-care (01) | DRG 541 ==
LOC: ED 16:04 → ERH 18:03 → 3RNO 20:52
PROVIDERS: ADMIT Internal Medicine; ATTEND Internal Medicine
PROC: 3E0F7GC Introduction of Other Therapeutic Substance into Respiratory Tract, Via Natural or Artificial Opening (ICD-10-PCS; principal; 2017-12-20)
DX: J44.1 Chronic obstructive pulmonary disease with (acute) exacerbation (principal); N17.9 Acute kidney failure, unspecified; J84.10 Pulmonary fibrosis, unspecified; E87.5 Hyperkalemia; N40.0 Benign prostatic hyperplasia without lower urinary tract symptoms; I35.2 Nonrheumatic aortic (valve) stenosis with insufficiency; I10 Essential (primary) hypertension; M10.9 Gout, unspecified; T38.0X5A Adverse effect of glucocorticoids and synthetic analogues, initial encounter; D72.829 Elevated white blood cell count, unspecified; I27.20 Pulmonary hypertension, unspecified; K21.9 Gastro-esophageal reflux disease without esophagitis; Z87.891 Personal history of nicotine dependence

== ENCOUNTER 2018-02-20 19:33 | Inpatient (IN) | payer MEDICAID, MEDICARE ==
[2018-02-20] MEDS ORDERED: Albuterol-Ipratrop 3 mg / 0.5 (3 ml) UD ONE (21:20)
--- NOTE | 2018-02-20 21:43 | ED PDOC ---
Arrival/HPI - General Chief Complaint: Weakness/Neurological Deficit Time Seen by Provider: 02/20/18 20:02 Historian: Patient - History of Present Illness Narrative History of Present Illness (Text): 02/20/18 21:40 An 87 year old male whose past medical history includes chronic leg pain, presents to the emergency department with a complaint of generalized weakness. 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 [id number]) was used to communicate with patient. As per patient's , he has been having a productive cough. The patient's notes that they spoke to the PMD regarding the patient's symptoms and she recommended he come in if his symptoms don't improve. The patient denies fevers, chills, headache, dizziness, sore throat, abdominal pain, nausea, vomiting, diarrhea, back pain, neck pain, urinary/bowel changes, trauma/injury, or any other complaints. PMD: Dr. Morris Time/Duration: Prior to Arrival Symptom Onset: Sudden Symptom Course: Worsening Activities at Onset: Rest, Light Context: Home Past Medical History - Provider Review Nursing Documentation Reviewed: Yes - Cardiac Hx Cardiac Disorders: Yes Hx Hypertension: Yes - Pulmonary Hx Respiratory Disorders: Yes Hx Chronic Obstructive Pulmonary Disease (COPD): Yes - Neurological Hx Neurological Disorder: Yes - HEENT Hx HEENT Disorder: Yes Hx Blind: Yes - Renal Hx Renal Disorder: No - Endocrine/Metabolic Hx Endocrine Disorders: Yes Hx Diabetes Mellitus Type 2: Yes - Hematological/Oncological Hx Blood Disorders: No - Integumentary Hx Dermatological Disorder: No - Musculoskeletal/Rheumatological Hx Musculoskeletal Disorders: Yes Hx Arthritis: Yes - Gastrointestinal Hx Gastrointestinal Disorders: Yes Hx Gastroesophageal Reflux: Yes - Genitourinary/Gynecological Hx Genitourinary Disorders: Yes Hx Prostate Problems: Yes - Psychiatric Hx Psychophysiologic Disorder: No Hx Substance Use: No - Anesthesia Hx Anesthesia: No - Suicidal Assessment Feels Threatened In Home Enviroment: No Family/Social History - Physician Review Nursing Documentation Reviewed: Yes Family/Social History: No Known Family HX Smoking Status: Former Smoker Hx Alcohol Use: No Hx Substance Use: No Hx Substance Use Treatment: No Allergies/Home Meds Allergies/Adverse Reactions: Allergies No Known Allergies Allergy (Verified 02/20/18 19:53) Home Medications: Home Meds Medication Instructions Recorded Confirmed Allopurinol [Zyloprim] 100 mg PO CONT 01/07/17 02/21/18 Gabapentin 300 mg PO DAILY 01/07/17 02/21/18 [id number] Ethyl Esters [OMEGA 3] 2 cap PO BID 01/07/17 02/21/18 Omeprazole 20 mg PO BID 01/07/17 02/21/18 Tamsulosin [Flomax] 0.4 mg PO DAILY 01/07/17 02/21/18 Vitamin E 1,000 iu PO QWK 01/07/17 02/21/18 Dutasteride [Avodart] 0.5 mg PO DAILY 02/21/18 02/21/18 Losartan Potassium 25 mg PO DAILY 02/21/18 02/21/18 Spironolactone [Aldactone] 25 mg PO DAILY 02/21/18 02/21/18 Torsemide [Demadex] 20 mg PO DAILY 02/21/18 02/21/18 Review of Systems - Physician Review All systems were reviewed & negative as marked: Yes - Review of Systems Constitutional: absent: Fevers Respiratory: Cough Cardiovascular: Chest Pain Gastrointestinal: absent: Abdominal Pain, Diarrhea, Nausea, Vomiting Genitourinary Male: absent: Urinary Output Changes Musculoskeletal: absent: Back Pain, Neck Pain Neurological: absent: Headache, Dizziness Physical Exam Appearance: Positive for: Well-Appearing, Non-Toxic, Comfortable Pain Distress: None Mental Status: Positive for: Alert and Oriented X 3 - Systems Exam Head: Present: Atraumatic, Normocephalic Pupils: Present: PERRL Extroacular Muscles: Present: EOMI Conjunctiva: Present: Normal Mouth: Present: Moist Mucous Membranes Neck: Present: Normal Range of Motion Respiratory/Chest: Present: Clear to Auscultation, Good Air Exchange, Rhonchi (Rhonchi bilaterally.), Other (Crackles) Cardiovascular: Present: Regular Rate and Rhythm, Normal S1, S2. No: Murmurs Abdomen: No: Tenderness, Distention, Peritoneal Signs Back: Present: Normal Inspection Upper Extremity: Present: Normal Inspection. No: Cyanosis, Edema Lower Extremity: Present: Normal Inspection. No: Edema Neurological: Present: GCS=15, CN II-XII Intact, Speech Normal Skin: Present: Warm, Dry, Normal Color. No: Rashes Psychiatric: Present: Alert, Oriented x 3, Normal Insight, Normal Concentration Medical Decision Making ED Course and Treatment: 02/20/18 21:43 Impression: An 87 year old male presents to the emergency department with a complaint of worsening cough and chest pain. Plan: -- EKG -- Chest X-ray -- Labs -- Urinalysis -- Duoneb -- IV Fluids -- Reassess and disposition Prior Visits: Notes and results from previous visits were reviewed. Progress Notes: EKG: Ordered, reviewed, and independently interpreted the EKG. Rate : 88 BPM Rhythm : NSR Interpretation : PACs and PDCs. No STEMI. 02/20/18 23:52: Code sepsis called. Xray w/ R sided PNA vs mucus plug, Will rx. Judicious fluids per admitting team given BNP Elevation, crackles vs rhonci on my exam. 02/21/18 00:05: Case discussed in detail with Dr. Sawyer and medical practice assistant who will come evaluate the patient in the emergency department. Accepted by Dr. Sawyer - Lab Interpretations I have reviewed the lab results: Yes - EKG Interpretation Interpreted by ED Physician: Yes Type: 12 lead EKG - Scribe Statement The provider has reviewed the documentation as recorded by the Scribe Zuleika Tolbert Provider Scribe Attestation: All medical record entries made by the Scribe were at my direction and personally dictated by me. I have reviewed the chart and agree that the record accurately reflects my personal performance of the history, physical exam, medical decision making, and the department course for this patient. I have also personally directed, reviewed, and agree with the discharge instructions and disposition. Disposition/Present on Arrival - Present on Arrival Any Indicators Present on Arrival: Yes History of DVT/PE: No History of Uncontrolled Diabetes: No Urinary Catheter: No History of Decub. Ulcer: No History Surgical Site Infection Following: None - Disposition Have Diagnosis and Disposition been Completed?: Yes Diagnosis: PNA (pneumonia) Disposition: HOSPITALIZED Disposition Time: 00:05 Patient Problems: Current Active Problems Problem Status Onset Pneumonia Acute Condition: GOOD
[2018-02-20 22:23] LABS: BASO # 0.02 K/mm3 (0.0-2.0); BASO % 0.2 % (0.0-3.0); EOS % 0.2 % (1.5-5.0); GRAN # 10.25 (1.4-6.5); GRAN % 77.6 % (50.0-68.0); HEMOGLOBIN 11.9 g/dL (14.0-18.0); LYMPH # 1.3 (1.2-3.4); LYMPH % 9.5 % (22.0-35.0); MEAN CORPUSCULAR HEMOGLOBIN 28.5 pg (25.0-35.0); MEAN CORPUSCULAR HGB CONC 32.1 g/dl (31.0-37.0); MEAN PLATELET VOLUME 10.7 fl (7.0-11.0); MONO # 1.7 (0.1-0.6); MONO % 12.5 % (1.0-6.0); RBC 4.17 10^6/uL (3.5-6.1); RED CELL DISTRIBUTION WIDTH 14.1 % (11.5-14.5); WHITE BLOOD COUNT 13.2 10^3/ul (4.5-11.0)
[2018-02-20 22:27] LABS: ALB/GLOB RATIO 0.9 (1.1-1.8); CALCIUM 9.1 mg/dL (8.4-10.5)
[2018-02-20 22:28] LABS: TROPONIN I 0.02 ng/mL
[2018-02-20] MEDS ORDERED: Vancomycin 1gm in NS 250ml 1 GM/250 ML BAG IVPB STA (23:49)
[2018-02-20] MEDS ORDERED: Piperacillin/Tazobact 3.375 gm 100 ML IVPB STA (23:49)
[2018-02-21 00:18] LABS: VENOUS BLOOD GAS PO2 32 mm/Hg (30-55); VENOUS BLOOD PH 7.37 (7.32-7.43)
[2018-02-21 00:19] LABS: VENOUS BLOOD FIO2 21 %; VENOUS BLOOD GAS BASE EXCESS 3.2 mmol/L (0.0-2.0)
--- NOTE | 2018-02-21 01:50 | CP.PCM.HP ---
History of Present Illness - History of Present Illness History of Present Illness: Kyrie Velazquez PGY1 History and Physical Dr Mati Sawyer Pt is an 87yo male with a PMH of COPD, HTN, osteoarthritis, and gout presents to the ED after seeing his primary care physician (Dr Gonzalez) who sent him to the ED for green sputum production. Pt states he his cough often wakes him up at night. Pt reports that he has had a productive cough for about 2 years. Pt denies blood in the sputum Pt states that this has gotten progressively worse over the past week. Pt denies fever, chills, chest pain, nausea or vomiting. Pt reports he had a couple episodes of diarrhea a week ago, but denies confusion or neurological symptoms. A 12 point ROS was obtained and added to the HPI. PMH: HTN, COPD, OA, gout PSH: Umbilical Hernia Repair, eye surgery Family: reviewed, non contributory Social: Tobacco 20 year packs, quit 40 years ago, denies alcohol, denies drugs, lives at home with his Allergies: NKDA Home Medications: As per MAR PMD Dr Gonzalez Present on Admission - Present on Admission Any Indicators Present on Admission: No Review of Systems - Review of Systems Review of Systems: a 12 point ROS was obtained and added to the HPI Past Patient History - Past Social History Smoking Status: Former Smoker - CARDIAC Hx Cardiac Disorders: Yes Hx Hypertension: Yes - PULMONARY Hx Respiratory Disorders: Yes Hx Chronic Obstructive Pulmonary Disease (COPD): Yes - NEUROLOGICAL Hx Neurological Disorder: Yes - HEENT Hx HEENT Problems: Yes Hx Blind: Yes - RENAL Hx Chronic Kidney Disease: No - ENDOCRINE/METABOLIC Hx Endocrine Disorders: Yes Hx Diabetes Mellitus Type 2: Yes - HEMATOLOGICAL/ONCOLOGICAL Hx Blood Disorders: No - INTEGUMENTARY Hx Dermatological Problems: No - MUSCULOSKELETAL/RHEUMATOLOGICAL Hx Musculoskeletal Disorders: Yes Hx Arthritis: Yes - GASTROINTESTINAL Hx Gastrointestinal Disorders: Yes Hx Gastroesophageal Reflux: Yes - GENITOURINARY/GYNECOLOGICAL Hx Genitourinary Disorders: Yes Hx Prostate Problems: Yes - PSYCHIATRIC Hx Psychophysiologic Disorder: No Hx Substance Use: No - SURGICAL HISTORY Hx Surgeries: No - ANESTHESIA Hx Anesthesia: No Meds Allergies/Adverse Reactions: Allergies Allergy/AdvReac Type Severity Reaction Status Date / Time No Known Allergies Allergy Verified 02/20/18 19:53 Physical Exam - Constitutional Appears: No Acute Distress - Head Exam Head Exam: ATRAUMATIC, NORMOCEPHALIC - Eye Exam Additional comments: pt has had an eye surgery, he has difficulty opening his right eye during the exam - ENT Exam ENT Exam: Mucous Membranes Moist - Respiratory Exam Respiratory Exam: Wheezes. absent: Accessory Muscle Use, Respiratory Distress - Cardiovascular Exam Cardiovascular Exam: RRR, +S1, +S2 - GI/Abdominal Exam GI & Abdominal Exam: Normal Bowel Sounds, Soft - Extremities Exam Extremities exam: Positive for: pedal pulses present. Negative for: calf tenderness, pedal edema - Neurological Exam Neurological exam: Alert, Oriented x3 - Psychiatric Exam Psychiatric exam: Normal Affect, Normal Mood - Skin Skin Exam: Dry, Normal Color, Warm Results - Vital Signs Recent Vital Signs: Last Vital Signs Temp Pulse 90 02/20/18 23:34 Resp 20 02/20/18 23:34 BP 100/52 L 02/20/18 23:34 Pulse Ox 96 02/20/18 23:34 - Labs Result Diagrams: 02/20/18 21:00 02/20/18 21:00 Labs: Laboratory Results - last 24 hr 02/20/18 02/20/18 02/20/18 20:52 21:00 21:00 WBC 13.2 H D RBC 4.17 Hgb 11.9 L Hct 37.1 L MCV 89.0 MCH 28.5 MCHC 32.1 RDW 14.1 Plt Count 268 MPV 10.7 Gran % 77.6 H Lymph % (Auto) 9.5 L [place] % (Auto) 12.5 H Eos % (Auto) 0.2 L Baso % (Auto) 0.2 Gran # 10.25 H Lymph # (Auto) 1.3 [place] # (Auto) 1.7 H Eos # (Auto) 0.0 Baso # (Auto) 0.02 pO2 32 VBG pH 7.37 VBG pCO2 51.0 VBG HCO3 29.5 H VBG Total CO2 31.1 H VBG O2 Sat (Calc) 58.7 VBG Base Excess 3.2 H VBG Potassium 4.4 Sodium 135.0 137 Chloride 100.0 97 L Glucose 127 H Lactate 1.2 FiO2 21 Potassium 4.4 Carbon Dioxide 27 Anion Gap 17 BUN 42 H Creatinine 2.4 H Est GFR ( Amer) 31 Est GFR (Non-Af Amer) 26 Random Glucose 128 H Calcium 9.1 Magnesium 1.7 Total Bilirubin 0.8 AST 30 ALT 19 Alkaline Phosphatase 81 Troponin I 0.02 D NT-Pro-B Natriuret Pep 1490 H Total Protein 8.5 H Albumin 4.0 Globulin 4.6 Albumin/Globulin Ratio 0.9 L TSH 3rd Generation Venous Blood Potassium 4.4 02/20/18 21:00 WBC RBC Hgb Hct MCV MCH MCHC RDW Plt Count MPV Gran % Lymph % (Auto) [place] % (Auto) Eos % (Auto) Baso % (Auto) Gran # Lymph # (Auto) [place] # (Auto) Eos # (Auto) Baso # (Auto) pO2 VBG pH VBG pCO2 VBG HCO3 VBG Total CO2 VBG O2 Sat (Calc) VBG Base Excess VBG Potassium Sodium Chloride Glucose Lactate FiO2 Potassium Carbon Dioxide Anion Gap BUN Creatinine Est GFR ( Amer) Est GFR (Non-Af Amer) Random Glucose Calcium Magnesium Total Bilirubin AST ALT Alkaline Phosphatase Troponin I NT-Pro-B Natriuret Pep Total Protein Albumin Globulin Albumin/Globulin Ratio TSH 3rd Generation 2.21 Venous Blood Potassium Assessment & Plan - Assessment and Plan (Free Text) Assessment: Pt is an 87yo male with a PMH of COPD, HTN, osteoarthritis, and gout presents to the ED after seeing his primary care physician (Dr Gonzalez) who sent him to the ED for green sputum production. Plan: PNA - CXR shows BL infiltrates - WBC 13, afebrile - follow up legionella AG, mycoplasma, flu A/B - follow up blood cultures, urine culture, sputum culture - start azithromycin - continue zosyn - continue duonebs JEMAL and PRN - start NS100 - start BiPAP - pt given dose of vanc in ED - solumedrol 125 IV given in ED - solumedrol 40 IV q12 - pulm consulted - ID consulted COPD - hold home Brovana, - continue Pulmicort, Singulair HTN - continue Amlodipine, hold if SBP less than 120 BPH - continue home flomax Ppx - lovenox - pantoprazole Pt seen, examined, assessment, and plan discussed with Dr Mati Velazquez PGY1 Internal Medicine Resident - Date & Time Date: 02/21/18 Time: 02:08
[2018-02-21] MEDS: Sodium Chloride 0.9% 1,000 ML IV SCH ×2 (02:00→14:47)
[2018-02-21] MEDS ORDERED: Albuterol-Ipratrop 3 mg / 0.5 (3 ml) UD IH PRN (02:29)
[2018-02-21 02:52] LABS: VENOUS BLOOD GAS PO2 82 mm/Hg (30-55); VENOUS BLOOD PH 7.38 (7.32-7.43)
[2018-02-21] MEDS ORDERED: Albuterol-Ipratrop 3 mg / 0.5 (3 ml) UD IH SCH (03:00)
[2018-02-21 03:25] LABS: ARTERIAL BLOOD GAS HCO3 25.4 mmol/L (21-28); ARTERIAL BLOOD GAS HEMOGLOBIN 11.5 g/dL (11.7-17.4); ARTERIAL BLOOD GAS O2 CONTENT 15.7 ML/dl (15-23); ARTERIAL BLOOD GAS O2 SAT 98.4 % (95-98); ARTERIAL BLOOD GAS PCO2 41 mm/Hg (35-45); ARTERIAL BLOOD GAS TCO2 26.7 mmol.L (22-28)
--- NOTE | 2018-02-21 03:36 | PCM.SEPTIC ---
Sepsis Progress Note - Reassessment Type Date of Evaluation: 02/21/18 Time of Evaluation: 03:28 Reassessment Type: Non-invasive reassessment - Non Invasive Reassessment Were the most recent vital sign reviewed: Yes Vital Sign (Latest): Temp Pulse Resp BP Pulse Ox 90 20 100/52 L 96 02/20/18 23:34 02/20/18 23:34 02/20/18 23:34 02/20/18 23:34 Cardiovascular: Yes: Regular Rate, Rhythm Respiratory: Yes: Wheezing. No: Accessory Muscle Use Capillary Refill: Normal (Less than 2 sec) Pulses: Normal Radial, Normal Dorsalis Pedis, Normal Posterior Tibialis Skin: Normal Color - Invasive Reassessment (complete 2 of 4) Was a Central Venous Pressure Measurement obtained within 6 Hours after the presentation of septic shock: No Was a central venous oxygen measurement obtained within 6 hours after the pres entation of septic shock: No Was a bedside cardiovascular ultrasound performed within 6 hours after the presentation of septic shock: No Was a passive leg raise performed or was a fluid challenge performed within 6 hrs of the initial fluid bolus: Yes Passive Leg Raise Result: Not Applicable Fluid Challenge performed: Yes
[2018-02-21] MEDS ORDERED: Piperacillin/Tazobact 3.375 gm 100 ML IVPB SCH (06:00)
[2018-02-21] MEDS ORDERED: Arformoterol 15 mcg/2 ml Inh Sol IH SCH ×2 (08:00)
--- NOTE | 2018-02-21 08:13 | CP.PCM.CON ---
<Christian Wong - Last Filed: 02/21/18 14:57> History of Present Illness - History of Present Illness History of Present Illness: Christian Wong DO, PGY-2: Nephrology Consult Note for Dr. Becerra 87 year old German speaking male with a past medical history of COPD, BPH, hypertension, osteoarthritis, gout, stage III CKD, recent hospitalization 2 months ago who [place] [facility] [place] his referral by his PMD for a productive cough consistent with green sputum. At the time of my examination the patient's is present and a video in flight crew member was used in obtaining the patients HPI and ROS. The reports the patient could not get out of bed yesterday and that he stumbled four times when getting out of bed; he has been having dysuria and has been very weak for the past week. In the ED the patient was found to have chest X-ray shows a right lower lobe infiltrate and minimal infiltrate in the left lower lobe suspicious for pneumonia. Infectious Disease has started the patient on antibiotics for a nosocomial pneumonia. The primary team has his steroids and breathing treatement and NS at 100 mls/hr as well. Chart review indicates thethat the patient denies fevers, chills, headache, dizziness, sore throat, abdominal pain, nausea, vomiting, diarrhea, back pain, neck pain, urinary/bowel changes, trauma/injury, or any other complaints. PMH: HTN, COPD, OA, gout, CKD III, BPH, PSH: Umbilical Hernia Repair, eye surgery Family: reviewed, non contributory Social: Tobacco 20 year packs, quit 40 years ago, denies alcohol, denies drugs, lives at home with his Allergies: NKDA Home Medications: As per MAR PMD Dr Yazmin Morris Review of Systems - Review of Systems All systems: reviewed and no additional remarkable complaints except (as per HPI) Past Patient History - Past Social History Smoking Status: Former Smoker - CARDIAC Hx Cardiac Disorders: Yes Hx Hypertension: Yes - PULMONARY Hx Respiratory Disorders: Yes Hx Chronic Obstructive Pulmonary Disease (COPD): Yes - NEUROLOGICAL Hx Neurological Disorder: Yes - HEENT Hx HEENT Problems: Yes Hx Blind: Yes - RENAL Hx Chronic Kidney Disease: No - ENDOCRINE/METABOLIC Hx Endocrine Disorders: Yes Hx Diabetes Mellitus Type 2: Yes - HEMATOLOGICAL/ONCOLOGICAL Hx Blood Disorders: No - INTEGUMENTARY Hx Dermatological Problems: No - MUSCULOSKELETAL/RHEUMATOLOGICAL Hx Musculoskeletal Disorders: Yes Hx Arthritis: Yes - GASTROINTESTINAL Hx Gastrointestinal Disorders: Yes Hx Gastroesophageal Reflux: Yes - GENITOURINARY/GYNECOLOGICAL Hx Genitourinary Disorders: Yes Hx Prostate Problems: Yes - PSYCHIATRIC Hx Psychophysiologic Disorder: No Hx Substance Use: No - SURGICAL HISTORY Hx Surgeries: No - ANESTHESIA Hx Anesthesia: No Meds Allergies/Adverse Reactions: Allergies Allergy/AdvReac Type Severity Reaction Status Date / Time No Known Allergies Allergy Verified 02/20/18 19:53 - Medications Medications: Current Medications Albuterol/Ipratropium (Duoneb 3 Mg/0.5 Mg (3 Ml) Ud) 3 ml IH Q6 [facility] Amlodipine Besylate (Norvasc) 5 mg PO DAILY [facility] Arformoterol Tartrate (Brovana) 15 mcg IH [id number] [facility] Budesonide (Pulmicort Respules) 0.5 mg IH [id number] [facility] Doxycycline Hyclate (Doryx) 100 mg PO Q12 [facility]; Protocol Enoxaparin Sodium (Lovenox) 30 mg SC DAILY [facility]; Protocol Sodium Chloride (Sodium Chloride 0.9%) 1,000 mls @ 100 mls/hr IV .Q10H [facility] Last Admin: 02/21/18 02:00 Dose: 100 mls/hr Linezolid (Zyvox 600mg/300ml D5w) 600 mg in 300 mls @ 200 mls/hr IVPB Q12 [facility]; Protocol Stop: 02/28/18 10:01 Cefepime HCl 0.5 gm/ Sodium (Chloride) 100 mls @ 100 mls/hr IVPB Q24H [facility]; Protocol Methylprednisolone (Solu-Medrol) 40 mg IVP Q12 [facility] Montelukast Sodium (Singulair) 10 mg PO HS [facility] Pantoprazole Sodium (Protonix Inj) 40 mg IVP DAILY [facility] Tamsulosin HCl (Flomax) 0.4 mg PO DAILY [facility] Physical Exam - Constitutional Appears: No Acute Distress - Head Exam Head Exam: ATRAUMATIC, NORMOCEPHALIC - Eye Exam Additional comments: left eye closed - ENT Exam ENT Exam: Mucous Membranes Moist - Neck Exam Neck exam: Positive for: Normal Inspection - Respiratory Exam Respiratory Exam: Decreased Breath Sounds (at bilateral lung bases) Additional comments: coarse breath sounds bilaterally - Cardiovascular Exam Cardiovascular Exam: RRR, +S1, +S2 - GI/Abdominal Exam GI & Abdominal Exam: Normal Bowel Sounds, Soft. absent: Guarding, Rebound - Extremities Exam Extremities exam: Positive for: normal inspection. Negative for: calf tenderness - Back Exam Back exam: absent: CVA tenderness (L), CVA tenderness (R) - Neurological Exam Neurological exam: Alert - Psychiatric Exam Psychiatric exam: Normal Affect, Normal Mood - Skin Skin Exam: Dry, Intact, Normal Color, Warm Results - Vital Signs Recent Vital Signs: Last Vital Signs Temp 98.3 F 02/20/18 22:08 Pulse 80 02/21/18 06:00 Resp 18 02/21/18 05:00 BP 94/65 L 02/21/18 05:00 Pulse Ox 96 02/21/18 06:00 - Labs Result Diagrams: 02/21/18 13:00 02/21/18 13:00 Labs: Laboratory Results - last 24 hr 02/20/18 02/20/18 02/20/18 20:52 21:00 21:00 WBC 13.2 H D RBC 4.17 Hgb 11.9 L Hct 37.1 L MCV 89.0 MCH 28.5 MCHC 32.1 RDW 14.1 Plt Count 268 MPV 10.7 Gran % 77.6 H Lymph % (Auto) 9.5 L Cross % (Auto) 12.5 H Eos % (Auto) 0.2 L Baso % (Auto) 0.2 Gran # 10.25 H Lymph # (Auto) 1.3 Cross # (Auto) 1.7 H Eos # (Auto) 0.0 Baso # (Auto) 0.02 pCO2 pO2 32 HCO3 ABG pH ABG Total CO2 ABG O2 Saturation ABG O2 Content ABG Base Excess ABG Hemoglobin ABG Carboxyhemoglobin POC ABG HHb (Measured) ABG Methemoglobin ABG O2 Capacity VBG pH 7.37 VBG pCO2 51.0 VBG HCO3 29.5 H VBG Total CO2 31.1 H VBG O2 Sat (Calc) 58.7 VBG Base Excess 3.2 H VBG Potassium 4.4 Hgb O2 Saturation Sodium 135.0 137 Chloride 100.0 97 L Glucose 127 H Lactate 1.2 FiO2 21 Potassium 4.4 Carbon Dioxide 27 Anion Gap 17 BUN 42 H Creatinine 2.4 H Est GFR ( Amer) 31 Est GFR (Non-Af Amer) 26 Random Glucose 128 H Calcium 9.1 Magnesium 1.7 Total Bilirubin 0.8 AST 30 ALT 19 Alkaline Phosphatase 81 Troponin I 0.02 D NT-Pro-B Natriuret Pep 1490 H Total Protein 8.5 H Albumin 4.0 Globulin 4.6 Albumin/Globulin Ratio 0.9 L TSH 3rd Generation Venous Blood Potassium 4.4 02/20/18 02/21/18 02/21/18 21:00 02:25 03:18 WBC RBC Hgb Hct MCV MCH MCHC RDW Plt Count MPV Gran % Lymph % (Auto) Cross % (Auto) Eos % (Auto) Baso % (Auto) Gran # Lymph # (Auto) Cross # (Auto) Eos # (Auto) Baso # (Auto) pCO2 41 pO2 82 H 101.0 H HCO3 25.4 ABG pH 7.40 ABG Total CO2 26.7 ABG O2 Saturation 98.4 H ABG O2 Content 15.7 ABG Base Excess 0.5 ABG Hemoglobin 11.5 L ABG Carboxyhemoglobin 1.5 POC ABG HHb (Measured) 1.6 ABG Methemoglobin 0.5 ABG O2 Capacity 16.0 VBG pH 7.38 VBG pCO2 45.0 VBG HCO3 26.6 VBG Total CO2 28.0 VBG O2 Sat (Calc) 97.7 H VBG Base Excess 1.0 VBG Potassium 4.4 Hgb O2 Saturation 96.3 Sodium 135.0 Chloride 102.0 Glucose 124 H Lactate 0.9 FiO2 21.0 40.0 Potassium Carbon Dioxide Anion Gap BUN Creatinine Est GFR ( Amer) Est GFR (Non-Af Amer) Random Glucose Calcium Magnesium Total Bilirubin AST ALT Alkaline Phosphatase Troponin I NT-Pro-B Natriuret Pep Total Protein Albumin Globulin Albumin/Globulin Ratio TSH 3rd Generation 2.21 Venous Blood Potassium 4.4 Assessment & Plan - Assessment and Plan (Free Text) Assessment: 87 year old German speaking male with a past medical history of COPD, hypertension, OA, gout, CKD III, recent hospitalization two months ago who presents with a productive cough with green sputum and was found to have pneumonia, BISHNU on CKD, and questionable CHF exacerbation. Plan: 1) BISHNU on CKD secondary to diuresis and decreased PO intake (patients home medication include Torseminde and Spirinolactone). - Insert [place] - UA and urine culture - Strict I/O - Renal US shows bilateral anechoic lesions consistent with cysts noted bilaterally. - Random urine total protein and urine microalbumin to urine Creatinine ratio - Random Urine urea, Sodium, and Creatinine - Continue with 100 ml/hr of NS - Avoid nephrotoxins such as NSAIDs and phosphate enemas - Hold torsemide, spirinolactone, and Losartan until Cr goes back to baseline. Then prior to re-starting these medications, decrease doses. - Can continue amlodipine 2) Nosocomial PNA - Continue with Linezolid - Cefepime dose 500 mg q24h - Doxycycline 100 mg PO q12h Case was reviewed and discussed with Dr. Becerra - Date & Time Date: 02/21/18 Time: 10:17 <Dominic Becerra - Last Filed: 02/22/18 02:45> Meds - Medications Medications: Current Medications Albuterol/Ipratropium (Duoneb 3 Mg/0.5 Mg (3 Ml) Ud) 3 ml IH Q6 [facility] Last Admin: 02/22/18 01:07 Dose: 3 ml Allopurinol (Zyloprim) 100 mg PO BID [facility] Last Admin: 02/21/18 18:04 Dose: 100 mg Arformoterol Tartrate (Brovana) 15 mcg IH [id number] [facility] Budesonide (Pulmicort Respules) 0.5 mg IH [id number] [facility] Last Admin: 02/21/18 19:40 Dose: 0.5 mg Dicyclomine HCl (Bentyl) 10 mg PO DAILY [facility] Doxycycline Hyclate (Doryx) 100 mg PO Q12 J[facility]; Protocol Last Admin: 02/21/18 21:23 Dose: 100 mg Enoxaparin Sodium (Lovenox) 30 mg SC DAILY [facility]; Protocol Last Admin: 02/21/18 09:33 Dose: 30 mg Gabapentin (Neurontin) 300 mg PO DAILY [facility]; Protocol Sodium Chloride (Sodium Chloride 0.9%) 1,000 mls @ 100 mls/hr IV .Q10H [facility] Last Admin: 02/21/18 14:47 Dose: 100 mls/hr Linezolid (Zyvox 600mg/300ml D5w) 600 mg in 300 mls @ 200 mls/hr IVPB Q12 [facility]; Protocol Stop: 02/28/18 10:01 Last Admin: 02/21/18 21:24 Dose: 200 mls/hr Cefepime HCl 0.5 gm/ Sodium (Chloride) 100 mls @ 100 mls/hr IVPB Q24H [facility]; Protocol Last Admin: 02/21/18 08:30 Dose: 100 mls/hr Methylprednisolone (Solu-Medrol) 40 mg IVP Q12 [facility] Last Admin: 02/21/18 21:24 Dose: 40 mg Montelukast Sodium (Singulair) 10 mg PO HS [facility] Last Admin: 02/21/18 23:17 Dose: 10 mg Dutasteride [Avodart ] 0.5 Mg - Non- Formulary 0.5 mg PO DAILY [facility] Cstpt-[id number] Ethyl Esters (Lovaza) 2 gm PO BID [facility] Last Admin: 02/21/18 18:04 Dose: 2 gm Pantoprazole Sodium (Protonix Inj) 40 mg IVP DAILY [facility] Last Admin: 02/21/18 12:03 Dose: 40 mg Pantoprazole Sodium (Protonix Ec Tab) 40 mg PO BID [facility] Last Admin: 02/21/18 18:04 Dose: 40 mg Tamsulosin HCl (Flomax) 0.4 mg PO DAILY [facility] Last Admin: 02/21/18 12:03 Dose: 0.4 mg Results - Vital Signs Recent Vital Signs: Last Vital Signs Temp 97.4 F L 02/22/18 00:01 Pulse 78 02/22/18 01:51 Resp 18 02/22/18 00:01 BP 107/59 L 02/22/18 00:01 Pulse Ox 98 02/22/18 00:01 - Labs Result Diagrams: 02/21/18 13:00 02/21/18 13:00 Labs: Laboratory Results - last 24 hr 02/20/18 02/20/18 02/21/18 21:00 21:00 02:25 WBC RBC Hgb Hct MCV MCH MCHC RDW Plt Count MPV Gran % Lymph % (Auto) Cross % (Auto) Eos % (Auto) Baso % (Auto) Gran # Lymph # (Auto) Cross # (Auto) Eos # (Auto) Baso # (Auto) pCO2 pO2 82 H HCO3 ABG pH ABG Total CO2 ABG O2 Saturation ABG O2 Content ABG Base Excess ABG Hemoglobin ABG Carboxyhemoglobin POC ABG HHb (Measured) ABG Methemoglobin ABG O2 Capacity VBG pH 7.38 VBG pCO2 45.0 VBG HCO3 26.6 VBG Total CO2 28.0 VBG O2 Sat (Calc) 97.7 H VBG Base Excess 1.0 VBG Potassium 4.4 Hgb O2 Saturation Sodium 135.0 Chloride 102.0 Glucose 124 H Lactate 0.9 FiO2 21.0 Potassium Carbon Dioxide Anion Gap BUN Creatinine Est GFR ( Amer) Est GFR (Non-Af Amer) Random Glucose Calcium Total Bilirubin AST ALT Alkaline Phosphatase Total Protein Albumin Globulin Albumin/Globulin Ratio Procalcitonin 0.25 Venous Blood Potassium 4.4 Urine Color Urine Appearance Urine pH Ur Specific [place] Urine Protein Urine Glucose (UA) Urine Ketones Urine Blood Urine Nitrate Urine Bilirubin Urine Urobilinogen Ur Leukocyte Esterase Urine RBC Urine WBC Ur Epithelial Cells Amorphous Sediment Urine Bacteria Coarse Granular Casts Urine Other Ur Random Creatinine U Random Total Protein Ur Random Sodium Ur Random Urea Nitrogn Mycoplasma pneumon IgM Negative 02/21/18 02/21/18 02/21/18 03:18 10:55 13:00 WBC 10.0 D RBC 4.06 Hgb 11.6 L Hct 36.0 L MCV 88.7 MCH 28.6 MCHC 32.2 RDW 13.9 Plt Count 249 MPV 9.8 Gran % 87.2 H Lymph % (Auto) 11.2 L Cross % (Auto) 1.6 Eos % (Auto) 0.0 L Baso % (Auto) 0.0 Gran # 8.70 H Lymph # (Auto) 1.1 L Cross # (Auto) 0.2 Eos # (Auto) 0.0 Baso # (Auto) 0.00 pCO2 41 pO2 101.0 H HCO3 25.4 ABG pH 7.40 ABG Total CO2 26.7 ABG O2 Saturation 98.4 H ABG O2 Content 15.7 ABG Base Excess 0.5 ABG Hemoglobin 11.5 L ABG Carboxyhemoglobin 1.5 POC ABG HHb (Measured) 1.6 ABG Methemoglobin 0.5 ABG O2 Capacity 16.0 VBG pH VBG pCO2 VBG HCO3 VBG Total CO2 VBG O2 Sat (Calc) VBG Base Excess VBG Potassium Hgb O2 Saturation 96.3 Sodium Chloride Glucose Lactate FiO2 40.0 Potassium Carbon Dioxide Anion Gap BUN Creatinine Est GFR ( Amer) Est GFR (Non-Af Amer) Random Glucose Calcium Total Bilirubin AST ALT Alkaline Phosphatase Total Protein Albumin Globulin Albumin/Globulin Ratio Procalcitonin Venous Blood Potassium Urine Color Yellow Urine Appearance Clear Urine pH 6.0 Ur Specific [place] 1.025 Urine Protein 100 H Urine Glucose (UA) Negative Urine Ketones Negative Urine Blood Trace-intact H Urine Nitrate Negative Urine Bilirubin Negative Urine Urobilinogen 1.0 H Ur Leukocyte Esterase Moderate H Urine RBC 2 - 5 Urine WBC 20 - 25 Ur Epithelial Cells 4 - 5 Amorphous Sediment Few Urine Bacteria Many Coarse Granular Casts Trace H Urine Other Uyeast Ur Random Creatinine U Random Total Protein Ur Random Sodium Ur Random Urea Nitrogn Mycoplasma pneumon IgM 02/21/18 02/21/18 02/21/18 13:00 17:00 17:27 WBC RBC Hgb Hct MCV MCH MCHC RDW Plt Count MPV Gran % Lymph % (Auto) Cross % (Auto) Eos % (Auto) Baso % (Auto) Gran # Lymph # (Auto) Cross # (Auto) Eos # (Auto) Baso # (Auto) pCO2 pO2 HCO3 ABG pH ABG Total CO2 ABG O2 Saturation ABG O2 Content ABG Base Excess ABG Hemoglobin ABG Carboxyhemoglobin POC ABG HHb (Measured) ABG Methemoglobin ABG O2 Capacity VBG pH VBG pCO2 VBG HCO3 VBG Total CO2 VBG O2 Sat (Calc) VBG Base Excess VBG Potassium Hgb O2 Saturation Sodium 138 Chloride 101 Glucose Lactate FiO2 Potassium 4.7 Carbon Dioxide 27 Anion Gap 14 BUN 45 H Creatinine 2.0 H Est GFR ( Amer) 39 Est GFR (Non-Af Amer) 32 Random Glucose 175 H Calcium 9.0 Total Bilirubin 0.6 AST 28 ALT 14 Alkaline Phosphatase 70 Total Protein 8.3 Albumin 3.8 Globulin 4.5 Albumin/Globulin Ratio 0.8 L Procalcitonin Venous Blood Potassium Urine Color Urine Appearance Urine pH Ur Specific [place] Urine Protein Urine Glucose (UA) Urine Ketones Urine Blood Urine Nitrate Urine Bilirubin Urine Urobilinogen Ur Leukocyte Esterase Urine RBC Urine WBC Ur Epithelial Cells Amorphous Sediment Urine Bacteria Coarse Granular Casts Urine Other Ur Random Creatinine 117 U Random Total Protein 69 Cancelled Ur Random Sodium 47 Ur Random Urea Nitrogn 1130 Mycoplasma pneumon IgM Attending/Attestation - Attestation I have personally seen and examined this patient.: Yes I have fully participated in the care of the patient.: Yes I have reviewed all pertinent clinical information: Yes Notes (Text): Patient seen and examined; I agree with the resident's note as above with the following additions/edits: 87 yo M w/ COPD, BPH, hypertension, osteoarthritis, gout, and CKD IIIA, admitted with possible pneumonia, nephrology consulted for BISHNU; Patient mildly hypotensive on presentation but responded to IVF; his main complaint during our encounter is generalized weakness lately; per primary team has been having productive cough, otherwise denies any worsened dyspnea; Has been having increased urinary frequency since several months with UA indicative of possible UTI; BISHNU clinically consistent with pre-renal etiology in the setting of possible sepsis, excessive diuresis, and loss of renal autoregulation due to being on ARB; Patient with non-proteinuric CKD (see previous admission UA) with review of records showing fluctuating level of serum creatinine and recent baseline of ~1.4; has significant vascular calcifications on imaging, in particular involving origin of L renal artery which may explain why patient is so susceptible to hemodynamic fluctuations of renal function; Unclear why patient was on torsemide 20 mg alternating with aldactone 25 mg every other day; recent echo not indicative of CHF; -Continue IVF w/ NS at 100 cc/hr; -Obtain bladder US w/ post-void residual measurement; agree with adding flomax to avodart; -Continue to hold diuretics and losartan; restart amlodipine 5 mg once BP stabilizes; can restart diuretics at much lower dose if needed (torsemide 5 mg and aldactone 12.5 mg every other day); -Avoid nephrotoxic agents (NSAIDS, phosphate enema); -Dose antibiotics for CrCl < 30 ml/min for now; may need to increase once renal function improves; Thank you for this referral, we will continue to follow.
[2018-02-21] MEDS: Cefepime 0.5 GM in Sodium Chloride 0.9% 100 ML IVPB SCH (08:30)
[2018-02-21] MEDS: Budesonide 0.5 mg/2 ml Inhal Susp UD IH SCH ×2 (08:31→19:40)
[2018-02-21] MEDS: Enoxaparin 30 mg Syringe SC SCH (09:33)
[2018-02-21] MEDS: Linezolid 600 mg in D5W 300 ml 600 MG/300 ML BAG IVPB SCH ×2 (09:34→21:24)
--- NOTE | 2018-02-21 09:35 | RAD ---
Date of service: 02/20/2018 HISTORY: cough COMPARISON: 12/20/2017 TECHNIQUE: Chest PA and lateral FINDINGS: LUNGS: Right lower lobe infiltrate and minimal infiltrate at the left lung base. Findings are suspicious for pneumonia. PLEURA: No significant pleural effusion identified. No pneumothorax apparent. CARDIOVASCULAR: Moderate cardiomegaly. No significant vascular congestion OSSEOUS STRUCTURES: No significant abnormalities. VISUALIZED UPPER ABDOMEN: Normal. OTHER FINDINGS: None. IMPRESSION: Right lower lobe infiltrate and minimal infiltrate at the left lung base. Findings are suspicious for pneumonia.
[2018-02-21 11:01] LABS: URINE BILIRUBIN NEGATIVE (NEGATIVE); URINE BLOOD TRACE-INTACT (NEGATIVE); URINE GLUCOSE (UA) NEGATIVE (NEGATIVE); URINE LEUKOCYTE ESTERASE MODERATE Leu/uL (NEGATIVE); URINE PROTEIN 100 mg/dL (<30 mg/dL)
[2018-02-21 11:04] LABS: URINE APPEARANCE CLEAR (CLEAR); URINE COLOR YELLOW (YELLOW)
[2018-02-21 11:07] LABS: URINE BACTERIA MANY (NEG); URINE WBC 20 - 25 /hpf (0-6)
[2018-02-21 11:08] LABS: URINE AMORPHOUS SEDIMENT FEW; URINE COARSE GRANULAR CAST TRACE /hpf (0-2)
--- NOTE | 2018-02-21 11:50 | US ---
Date of service: 02/21/2018 PROCEDURE: Ultrasound of the Kidneys HISTORY: BISHNU COMPARISON: CT abdomen pelvis without contrast performed 01/07/17 TECHNIQUE: Sonogram of the kidneys. FINDINGS: RIGHT KIDNEY: Measures: 11.2 x 5.3 x 5.7 cm. Numerous anechoic lesions consistent with cysts. For example: 2.8 cm right upper pole, 2.7 cm right midpole, and 2.3 cm right lower pole cysts. No hydronephrosis or obstructing calculus identified. LEFT KIDNEY: Measures: 13.6 x 5.8 x 5.7 cm. Numerous anechoic lesions consistent with cysts. For example: 5.3 cm upper pole, 2.4 cm midpole, and 1.6 cm lower pole cysts. No obstructing calculus or hydronephrosis identified. OTHER FINDINGS: None. IMPRESSION: Bilateral anechoic lesions consistent with cysts noted bilaterally.
[2018-02-21] MEDS: Albuterol-Ipratrop 3 mg / 0.5 (3 ml) UD IH SCH ×2 (12:02→19:41)
[2018-02-21] MEDS: MethylPREDNISolone 40 mg Vial IVP SCH ×2 (12:03→21:24)
[2018-02-21 13:13] LABS: GRAN # 8.7 (1.4-6.5); GRAN % 87.2 % (50.0-68.0); HEMOGLOBIN 11.6 g/dL (14.0-18.0); LYMPH # 1.1 (1.2-3.4); LYMPH % 11.2 % (22.0-35.0); MEAN CELL VOLUME 88.7 fl (80.0-105.0); MEAN CORPUSCULAR HEMOGLOBIN 28.6 pg (25.0-35.0); MEAN CORPUSCULAR HGB CONC 32.2 g/dl (31.0-37.0); MEAN PLATELET VOLUME 9.8 fl (7.0-11.0); MONO # 0.2 (0.1-0.6); MONO % 1.6 % (1.0-6.0); RBC 4.06 10^6/uL (3.5-6.1); RED CELL DISTRIBUTION WIDTH 13.9 % (11.5-14.5)
[2018-02-21 13:22] LABS: ALB/GLOB RATIO 0.8 (1.1-1.8); ALBUMIN 3.8 g/dL (3.0-4.8)
--- NOTE | 2018-02-21 13:54 | CARD ---
APPROVED REPORT Date of service: 02/20/2018 EKG Measurement Heart [id number] <Conclusion> Sinus rhythm with occasional premature ventricular complexes and premature atrial complexes Possible Left atrial enlargement Borderline ECG
[2018-02-21 14:26] VITALS: BMI 26.5
[2018-02-21] MEDS ORDERED: Influenza Vaccine 60 mcg/0.5 mL SYR (4YR UP) IM ONE (14:27)
[2018-02-21] MEDS ORDERED: Pneumococcal 23-Valent Vaccine IM ONE (14:27)
--- NOTE | 2018-02-21 14:51 | CARD ---
APPROVED REPORT Date of service: 02/21/2018 EKG Measurement Heart [id number] <Conclusion> Sinus rhythm with frequent premature ventricular complexes Possible Left atrial enlargement Borderline ECG
--- NOTE | 2018-02-21 17:16 | CP.PCM.CON ---
History of Present Illness - History of Present Illness History of Present Illness: 87 year old male with PMH of HTN, COPD, osteoarthritis, gout, benign prostatic hyperplasia, history of umbilical hernia repair, significant smoking history, came in to [facility] [place] complaining of sputum production which is greenish. This is asso ciated with difficulty breathing. He denies fever or chills, no abdominal pain, no chest pain, no nausea or vomiting, no headache or dizziness, no diarrhea, no dysuria. CXR is showing possible infiltrates. The patient was recently in the hospital in December 2017. Infectious Diseases consult is requested to further evaluate and manage. Review of Systems - Review of Systems All systems: reviewed and no additional remarkable complaints except (as per HPI) Past Patient History - Past Social History Smoking Status: Former Smoker - CARDIAC Hx Cardiac Disorders: Yes Hx Hypertension: Yes - PULMONARY Hx Respiratory Disorders: Yes Hx Chronic Obstructive Pulmonary Disease (COPD): Yes - NEUROLOGICAL Hx Neurological Disorder: Yes - HEENT Hx HEENT Problems: Yes Hx Blind: Yes - RENAL Hx Chronic Kidney Disease: No - ENDOCRINE/METABOLIC Hx Endocrine Disorders: Yes Hx Diabetes Mellitus Type 2: Yes - HEMATOLOGICAL/ONCOLOGICAL Hx Blood Disorders: No - INTEGUMENTARY Hx Dermatological Problems: No - MUSCULOSKELETAL/RHEUMATOLOGICAL Hx Musculoskeletal Disorders: Yes Hx Arthritis: Yes - GASTROINTESTINAL Hx Gastrointestinal Disorders: Yes Hx Gastroesophageal Reflux: Yes - GENITOURINARY/GYNECOLOGICAL Hx Genitourinary Disorders: Yes Hx Prostate Problems: Yes - PSYCHIATRIC Hx Psychophysiologic Disorder: No Hx Substance Use: No - SURGICAL HISTORY Hx Surgeries: No - ANESTHESIA Hx Anesthesia: No Meds Allergies/Adverse Reactions: Allergies Allergy/AdvReac Type Severity Reaction Status Date / Time No Known Allergies Allergy Verified 02/20/18 19:53 - Medications Medications: Current Medications Albuterol/Ipratropium (Duoneb 3 Mg/0.5 Mg (3 Ml) Ud) 3 ml IH Q6 JEMAL Albuterol/Ipratropium (Duoneb 3 Mg/0.5 Mg (3 Ml) Ud) 3 ml IH Q2 PRN PRN Reason: Wheezing Stop: 02/21/18 08:01 Amlodipine Besylate (Norvasc) 5 mg PO DAILY J[facility]AL Arformoterol Tartrate (Brovana) 15 mcg IH [id number] JEMAL Budesonide (Pulmicort Respules) 0.5 mg IH [id number] JEMAL Doxycycline Hyclate (Doryx) 100 mg PO Q12 JEMAL; Protocol Enoxaparin Sodium (Lovenox) 30 mg SC DAILY [facility]AL; Protocol Sodium Chloride (Sodium Chloride 0.9%) 1,000 mls @ 100 mls/hr IV .Q10H JEMAL Last Admin: 02/21/18 02:00 Dose: 100 mls/hr Linezolid (Zyvox 600mg/300ml D5w) 600 mg in 300 mls @ 200 mls/hr IVPB Q12 [facility]EMAL; Protocol Stop: 02/28/18 10:01 Cefepime HCl (Maxipime 1gm) 1 gm in 100 mls @ 100 mls/hr IVPB Q12 JEMAL; Protocol Methylprednisolone (Solu-Medrol) 40 mg IVP Q12 [facility] Montelukast Sodium (Singulair) 10 mg PO HS [facility] Pantoprazole Sodium (Protonix Inj) 40 mg IVP DAILY [facility] Tamsulosin HCl (Flomax) 0.4 mg PO DAILY JEMAL Physical Exam - Constitutional Appears: Non-toxic, Chronically Ill - Head Exam Head Exam: NORMAL INSPECTION - Neck Exam Neck exam: Negative for: Meningismus - Respiratory Exam Respiratory Exam: Decreased Breath Sounds - Cardiovascular Exam Cardiovascular Exam: +S1, +S2 - GI/Abdominal Exam GI & Abdominal Exam: Soft. absent: Tenderness Results - Vital Signs Recent Vital Signs: Last Vital Signs Temp Pulse 75 02/21/18 05:00 Resp 18 02/21/18 05:00 BP 94/65 L 02/21/18 05:00 Pulse Ox 97 02/21/18 05:00 - Labs Result Diagrams: 02/21/18 13:00 02/21/18 13:00 Labs: Laboratory Results - last 24 hr 02/20/18 02/20/18 02/20/18 20:52 21:00 21:00 WBC 13.2 H D RBC 4.17 Hgb 11.9 L Hct 37.1 L MCV 89.0 MCH 28.5 MCHC 32.1 RDW 14.1 Plt Count 268 MPV 10.7 Gran % 77.6 H Lymph % (Auto) 9.5 L [place] % (Auto) 12.5 H Eos % (Auto) 0.2 L Baso % (Auto) 0.2 Gran # 10.25 H Lymph # (Auto) 1.3 [place] # (Auto) 1.7 H Eos # (Auto) 0.0 Baso # (Auto) 0.02 pCO2 pO2 32 HCO3 ABG pH ABG Total CO2 ABG O2 Saturation ABG O2 Content ABG Base Excess ABG Hemoglobin ABG Carboxyhemoglobin POC ABG HHb (Measured) ABG Methemoglobin ABG O2 Capacity VBG pH 7.37 VBG pCO2 51.0 VBG HCO3 29.5 H VBG Total CO2 31.1 H VBG O2 Sat (Calc) 58.7 VBG Base Excess 3.2 H VBG Potassium 4.4 Hgb O2 Saturation Sodium 135.0 137 Chloride 100.0 97 L Glucose 127 H Lactate 1.2 FiO2 21 Potassium 4.4 Carbon Dioxide 27 Anion Gap 17 BUN 42 H Creatinine 2.4 H Est GFR ( Amer) 31 Est GFR (Non-Af Amer) 26 Random Glucose 128 H Calcium 9.1 Magnesium 1.7 Total Bilirubin 0.8 AST 30 ALT 19 Alkaline Phosphatase 81 Troponin I 0.02 D NT-Pro-B Natriuret Pep 1490 H Total Protein 8.5 H Albumin 4.0 Globulin 4.6 Albumin/Globulin Ratio 0.9 L TSH 3rd Generation Venous Blood Potassium 4.4 02/20/18 02/21/18 02/21/18 21:00 02:25 03:18 WBC RBC Hgb Hct MCV MCH MCHC RDW Plt Count MPV Gran % Lymph % (Auto) [place] % (Auto) Eos % (Auto) Baso % (Auto) Gran # Lymph # (Auto) [place] # (Auto) Eos # (Auto) Baso # (Auto) pCO2 41 pO2 82 H 101.0 H HCO3 25.4 ABG pH 7.40 ABG Total CO2 26.7 ABG O2 Saturation 98.4 H ABG O2 Content 15.7 ABG Base Excess 0.5 ABG Hemoglobin 11.5 L ABG Carboxyhemoglobin 1.5 POC ABG HHb (Measured) 1.6 ABG Methemoglobin 0.5 ABG O2 Capacity 16.0 VBG pH 7.38 VBG pCO2 45.0 VBG HCO3 26.6 VBG Total CO2 28.0 VBG O2 Sat (Calc) 97.7 H VBG Base Excess 1.0 VBG Potassium 4.4 Hgb O2 Saturation 96.3 Sodium 135.0 Chloride 102.0 Glucose 124 H Lactate 0.9 FiO2 21.0 40.0 Potassium Carbon Dioxide Anion Gap BUN Creatinine Est GFR ( Amer) Est GFR (Non-Af Amer) Random Glucose Calcium Magnesium Total Bilirubin AST ALT Alkaline Phosphatase Troponin I NT-Pro-B Natriuret Pep Total Protein Albumin Globulin Albumin/Globulin Ratio TSH 3rd Generation 2.21 Venous Blood Potassium 4.4 Assessment & Plan - Assessment and Plan (Free Text) Plan: Assessment consider sepsis due to right lower lobe HCAP chronic fibrosis in the lungs HTN COPD osteoarthritis gout benign prostatic hyperplasia history of umbilical hernia repair significant smoking history Plan started Zyvox, Cefepime and Doxycycline pending blood, sputum cx, PCT, urine Legionella Ag reviewed CXR will monitor clinically
[2018-02-21] MEDS: Omega-3-Acid Ethyl Esters 1 GM Cap PO SCH (18:04)
[2018-02-21] MEDS: Pantoprazole 40 mg EC Tab PO SCH (18:04)
[2018-02-21 18:09] LABS: CREATININE,RANDOM URINE 117 mg/dL
[2018-02-22] MEDS: Albuterol-Ipratrop 3 mg / 0.5 (3 ml) UD IH SCH ×4 (01:07→19:44)
[2018-02-22] MEDS: Cefepime 0.5 GM in Sodium Chloride 0.9% 100 ML IVPB SCH (05:25)
--- NOTE | 2018-02-22 06:28 | CON ---
DATE: 02/21/2018 REFERRING PHYSICIAN: Dr. Mendoza REASON FOR CONSULTATION: Cough, shortness of breath. 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 No hemoptysis or emesis. No hematuria or diarrhea reported. PAST MEDICAL HISTORY: As per history of present illness. ALLERGIES: NONE KNOWN. SOCIAL HISTORY: He smoked 30-year, he is a 20 pack smoker, stop many years ago. Denies any alcohol use. FAMILY HISTORY: No significant cardiopulmonary disease reported. MEDICATIONS: He is on Bentyl 10 mg daily, Brovana inhaled twice a day, cefepime 500 mg every 12 hour, doxycycline 100 mg twice, albuterol/Atrovent nebulize every 6 hour, Avodart 0.5 mg daily, Flomax 0.4 mg daily, Lovaza 2 g every 12 hour, Lovenox 30 mg daily, gabapentin 300 mg daily, Protonix 40 mg daily, Pulmicort inhaled twice a day, Singulair 10 mg daily, IV fluid normal saline 100 mL/hour, Solu-Medrol 40 mg every 12 hour, allopurinol 100 mg twice a day, Zyvox 600 mg every 12 hours. REVIEW OF SYSTEMS: No headache or rhinitis. Has cough, shortness of breath. No chest pain. No nausea. No vomiting. No dysuria. No significant leg swelling. PHYSICAL EXAMINATION GENERAL: Lying in the bed, mild cough and short of breath. VITAL SIGNS: Temperature is 98, heart rate is 75, respiratory rate 80, blood pressure 138/82, pulse ox 98% on nasal cannula. HEENT: Moist mucous membrane. Crowded airway. Mallampati score is 4. NECK: Supple. No JVD. LUNGS: Have crackles and rhonchi. HEART: S1 and S2. ABDOMEN: Soft, nontender, no organomegaly. EXTREMITIES: No significant edema. NEUROLOIGC: Awake and alert. Follows simple commands. LABORATORY DATA: Shows hemoglobin 11.6, hematocrit 36, WBC 10, platelet is 249, so has a ABG done which shows pH 7.40, pCO2 of 41, O2 was 101 that is on 40% oxygen. Sodium 138, potassium 4.7, chloride 101, bicarbonate 27, BUN 45, creatinine 2, glucose 175, calcium 9, AST 28, ALT 14, alk phos is 70. Albumin is 3.8. Urinalysis shows WBC 20-25, mycoplasma pneumonia IgM is negative. Chest x-ray done in ER shows right lower lobe infiltrate and minimal infiltrate at the left lung base suspicious for pneumonia. 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 I agree with the present management. Continue antibiotics, probably has an top of for chronic lung disease, pneumonia. We will get procalcitonin in the morning. Continue steroids, inhale bronchodilator, sleep apnea precaution. Keep head at 45 degrees. Followup CAT scan in the past. The patient and family was explained that the patient should have PFT to assess lung function and also should have a attended sleep study, apparently noncompliant did not follow up. Thank you and we will follow with you. Santiago Valdez MD
[2018-02-22 07:25] LABS: GRAN # 10.08 (1.4-6.5); GRAN % 86.8 % (50.0-68.0); HEMOGLOBIN 10.5 g/dL (14.0-18.0); LYMPH % 8.7 % (22.0-35.0); MEAN CELL VOLUME 87.8 fl (80.0-105.0); MEAN CORPUSCULAR HEMOGLOBIN 27.9 pg (25.0-35.0); MEAN CORPUSCULAR HGB CONC 31.8 g/dl (31.0-37.0); MEAN PLATELET VOLUME 9.7 fl (7.0-11.0); MONO # 0.5 (0.1-0.6); MONO % 4.5 % (1.0-6.0); RBC 3.76 10^6/uL (3.5-6.1); RED CELL DISTRIBUTION WIDTH 13.9 % (11.5-14.5); WHITE BLOOD COUNT 11.6 10^3/ul (4.5-11.0)
[2018-02-22 07:34] LABS: ALB/GLOB RATIO 0.8 (1.1-1.8); ALBUMIN 3.3 g/dL (3.0-4.8); CALCIUM 8.6 mg/dL (8.4-10.5); URIC ACID 7.6 mg/dL (3.5-8.5)
[2018-02-22] MEDS: Budesonide 0.5 mg/2 ml Inhal Susp UD IH SCH ×2 (08:44→19:45)
[2018-02-22] MEDS ORDERED: DUTASTERIDE 0.5 MG PO SCH (10:00)
--- NOTE | 2018-02-22 11:23 | CP.PCM.PN ---
<PaizSheron albarranil - Last Filed: 02/22/18 11:23> Subjective - Date & Time of Evaluation Date of Evaluation: 02/22/18 Time of Evaluation: 09:30 - Subjective Subjective: Rik Paiz Internal Medicine Resident- Progress Note on Behalf of Hospitalist Team Subjective: Patient seen and examined at bedside. Resting comfortably in bed. No acute overnight events. Patient states severity of cough remains at baseline. Offers no new complaints at this time. Denies fever, chills, chest pain, abdominal pain, nausea, vomiting, diarrhea, constipation, and urinary symptoms. 12-point review of systems negative except as indicated in the HPI Physical Examination: - Constitutional Appears: No Acute Distress - Head Exam Head Exam: ATRAUMATIC, NORMOCEPHALIC - ENT Exam ENT Exam: Mucous Membranes Moist - Respiratory Exam Respiratory Exam: Decreased breath sounds absent: Accessory Muscle Use, Respiratory Distress - Cardiovascular Exam Cardiovascular Exam: RRR, +S1, +S2 - GI/Abdominal Exam GI & Abdominal Exam: Normal Bowel Sounds, Soft - Extremities Exam Extremities exam: Positive for: pedal pulses present. Negative for: calf tenderness, pedal edema - Neurological Exam Neurological exam: Alert, Oriented x3 - Psychiatric Exam Psychiatric exam: Normal Affect, Normal Mood - Skin Skin Exam: Dry, Normal Color, Warm Assessment and Plan: Patient is an 87yo male with a PMHx of COPD, HTN, osteoarthritis, and gout who was admitted for evaluation and treatment of green sputum production. Pneumonia - follow up legionella AG, mycoplasma, flu A/B - blood cultures negative after 24 hours - discontinue IVF as patient has adequate PO intake - pulm consulted- recommend current managment and PFT/sleep study on outpatient basis - ID consulted- continue cefepime, doxycycline, and linezolid, awaiting procalcitonin level at this time to determine antibiotic management COPD - hold home brovana - continue Pulmicort, Singulair, and Duonebs - continue Bipap - solumedrol changed to 20 IV q12 Hx of HTN - continue Amlodipine, hold if SBP less than 120 Hx of BPH - continue home flomax Hx of Gout - continue home allopurinol Prophylaxis - DVT ppx- lovenox - GI ppx- pantoprazole Patient seen, case discussed with, and plan approved by attending physician, Dr. Collins. Objective - Vital Signs/Intake and Output Vital Signs (last 24 hours): Temp Pulse Resp BP Pulse Ox 97.4 F L 82 18 101/60 92 L 02/22/18 06:00 02/22/18 06:00 02/22/18 06:00 02/22/18 06:00 02/22/18 06:00 Intake and Output: 02/22/18 02/22/18 06:59 18:59 Intake Total 1500 360 Output Total 50 Balance 1450 360 - Medications Medications: Current Medications Albuterol/Ipratropium (Duoneb 3 Mg/0.5 Mg (3 Ml) Ud) 3 ml IH Q6 JEMAL Last Admin: 02/22/18 08:45 Dose: 3 ml Allopurinol (Zyloprim) 100 mg PO BID [facility] Last Admin: 02/21/18 18:04 Dose: 100 mg Arformoterol Tartrate (Brovana) 15 mcg IH [id number] JEMAL Budesonide (Pulmicort Respules) 0.5 mg IH [id number] JEMAL Last Admin: 02/22/18 08:44 Dose: 0.5 mg Dicyclomine HCl (Bentyl) 10 mg PO DAILY [facility] Doxycycline Hyclate (Doryx) 100 mg PO Q12 JEMAL; Protocol Last Admin: 02/21/18 21:23 Dose: 100 mg Enoxaparin Sodium (Lovenox) 30 mg SC DAILY JEMAL; Protocol Last Admin: 02/21/18 09:33 Dose: 30 mg Gabapentin (Neurontin) 300 mg PO DAILY [facility]; Protocol Linezolid (Zyvox 600mg/300ml D5w) 600 mg in 300 mls @ 200 mls/hr IVPB Q12 JEMAL; Protocol Stop: 02/28/18 10:01 Last Admin: 02/21/18 21:24 Dose: 200 mls/hr Cefepime HCl 0.5 gm/ Sodium (Chloride) 100 mls @ 100 mls/hr IVPB Q24H [facility]EMAL; Protocol Last Admin: 02/22/18 05:25 Dose: 100 mls/hr Methylprednisolone (Solu-Medrol) 20 mg IVP Q12 [facility]EMAL Montelukast Sodium (Singulair) 10 mg PO HS [facility] Last Admin: 02/21/18 23:17 Dose: 10 mg Dutasteride [Avodart ] 0.5 Mg - Non- Formulary 0.5 mg PO DAILY [facility] Lostq-3-Veih Ethyl Esters (Lovaza) 2 gm PO BID [facility] Last Admin: 02/21/18 18:04 Dose: 2 gm Pantoprazole Sodium (Protonix Inj) 40 mg IVP DAILY [facility] Last Admin: 02/21/18 12:03 Dose: 40 mg Pantoprazole Sodium (Protonix Ec Tab) 40 mg PO BID [facility] Last Admin: 02/21/18 18:04 Dose: 40 mg Tamsulosin HCl (Flomax) 0.4 mg PO DAILY [facility] Last Admin: 02/21/18 12:03 Dose: 0.4 mg - Labs Labs: 02/22/18 06:30 02/22/18 06:30 <Santiago Collins - Last Filed: 02/22/18 15:55> Objective - Vital Signs/Intake and Output Vital Signs (last 24 hours): Temp Pulse Resp BP Pulse Ox 97.8 F 81 18 111/60 92 L 02/22/18 12:00 02/22/18 12:00 02/22/18 12:00 02/22/18 12:00 02/22/18 06:00 Intake and Output: 02/22/18 02/22/18 06:59 18:59 Intake Total 1500 360 Output Total 50 Balance 1450 360 - Medications Medications: Current Medications Albuterol/Ipratropium (Duoneb 3 Mg/0.5 Mg (3 Ml) Ud) 3 ml IH Q6 [facility] Last Admin: 02/22/18 14:25 Dose: 3 ml Allopurinol (Zyloprim) 100 mg PO BID [facility] Last Admin: 02/22/18 11:38 Dose: 100 mg Arformoterol Tartrate (Brovana) 15 mcg IH [id number] [facility] Budesonide (Pulmicort Respules) 0.5 mg IH [id number] [facility] Last Admin: 02/22/18 08:44 Dose: 0.5 mg Dicyclomine HCl (Bentyl) 10 mg PO DAILY [facility] Last Admin: 02/22/18 11:37 Dose: 10 mg Doxycycline Hyclate (Doryx) 100 mg PO Q12 [facility]; Protocol Last Admin: 02/22/18 11:37 Dose: 100 mg Gabapentin (Neurontin) 300 mg PO DAILY [facility]; Protocol Last Admin: 02/22/18 11:38 Dose: 300 mg Heparin Sodium (Porcine) (Heparin) 5,000 units SC Q12 [facility]; Protocol Linezolid (Zyvox 600mg/300ml D5w) 600 mg in 300 mls @ 200 mls/hr IVPB Q12 [facility]; Protocol Stop: 02/28/18 10:01 Last Admin: 02/22/18 11:39 Dose: 200 mls/hr Cefepime HCl (Maxipime 2gm) 2 gm in 100 mls @ 100 mls/hr IVPB Q12 [facility]; Protocol Stop: 02/27/18 22:01 Methylprednisolone (Solu-Medrol) 20 mg IVP Q12 [facility] Last Admin: 02/22/18 12:15 Dose: 20 mg Montelukast Sodium (Singulair) 10 mg PO HS [facility] Last Admin: 02/21/18 23:17 Dose: 10 mg Dutasteride [Avodart (] 0.5 Mg - (Home)) 0.5 mg PO DAILY [facility] Iaaev-0-Hozn Ethyl Esters (Lovaza) 2 gm PO BID [facility] Last Admin: 02/22/18 11:38 Dose: 2 gm Pantoprazole Sodium (Protonix Ec Tab) 40 mg PO BID [facility] Last Admin: 02/22/18 11:38 Dose: 40 mg Tamsulosin HCl (Flomax) 0.4 mg PO DAILY [facility] Last Admin: 02/22/18 11:37 Dose: 0.4 mg - Labs Labs: 02/22/18 06:30 02/22/18 06:30 Attending/Attestation - Attestation I have personally seen and examined this patient.: Yes I have fully participated in the care of the patient.: Yes I have reviewed all pertinent clinical information, including history, physical exam and plan: Yes Notes (Text): 02/22/18 15:51 Patient was seen and examined with medical laboratory manager. 87 year old Telugu speaking male with a past medical history of COPD, BPH, hypertension, osteoarthritis ,IPF , gout, stage III CKD, recent hospitalization 2 months ago who [place] [facility] evaluation by his PMD for a productive cough consistent with green sputum found to have HCAP Pneumonia ,Patient is also found to acute on chronic renal failure due to overdiuresis, HCAP Pneumonia, continue IV antibiotics as per ID (Cefepime , doxycycline and Lenozolid).We will follow up cultures and Procalcitonin level. Acute on chronic renal failure has improved.Creatinin is at bas edu 1.6, we will discontinue IV fluid. COPD, not wheezing, we will decrease dose of IV methylprednisolon to 20 mg BID. Prognosis is guarded. Management plan was discussed in detail with patient Education was provided. 02/22/18 15:54
[2018-02-22] MEDS: Omega-3-Acid Ethyl Esters 1 GM Cap PO SCH ×2 (11:38→17:02)
[2018-02-22] MEDS: Enoxaparin 30 mg Syringe SC SCH (11:38)
[2018-02-22] MEDS: Pantoprazole 40 mg EC Tab PO SCH ×2 (11:38→17:02)
[2018-02-22] MEDS: Linezolid 600 mg in D5W 300 ml 600 MG/300 ML BAG IVPB SCH ×2 (11:39→21:43)
[2018-02-22] MEDS: MethylPREDNISolone 40 mg Vial IVP SCH ×2 (12:15→21:39)
--- NOTE | 2018-02-22 15:39 | CP.PCM.PN ---
Subjective - Date & Time of Evaluation Date of Evaluation: 02/22/18 Time of Evaluation: 11:15 - Subjective Subjective: No fevers, still with cough but a little less, no nausea, no diarrhea. Objective - Vital Signs/Intake and Output Vital Signs (last 24 hours): Temp Pulse Resp BP Pulse Ox 97.4 F L 82 18 101/60 92 L 02/22/18 06:00 02/22/18 06:00 02/22/18 06:00 02/22/18 06:00 02/22/18 06:00 Intake and Output: 02/22/18 02/22/18 06:59 18:59 Intake Total 1500 360 Output Total 50 Balance 1450 360 - Medications Medications: Current Medications Albuterol/Ipratropium (Duoneb 3 Mg/0.5 Mg (3 Ml) Ud) 3 ml IH Q6 [facility] Last Admin: 02/22/18 08:45 Dose: 3 ml Allopurinol (Zyloprim) 100 mg PO BID [facility] Last Admin: 02/22/18 11:38 Dose: 100 mg Arformoterol Tartrate (Brovana) 15 mcg IH [id number] [facility]EM[facility] Budesonide (Pulmicort Respules) 0.5 mg IH [id number] [facility] Last Admin: 02/22/18 08:44 Dose: 0.5 mg Dicyclomine HCl (Bentyl) 10 mg PO DAILY [facility] Last Admin: 02/22/18 11:37 Dose: 10 mg Doxycycline Hyclate (Doryx) 100 mg PO Q12 [facility]; Protocol Last Admin: 02/22/18 11:37 Dose: 100 mg Gabapentin (Neurontin) 300 mg PO DAILY [facility]; Protocol Last Admin: 02/22/18 11:38 Dose: 300 mg Heparin Sodium (Porcine) (Heparin) 5,000 units SC Q12 [facility]; Protocol Linezolid (Zyvox 600mg/300ml D5w) 600 mg in 300 mls @ 200 mls/hr IVPB Q12 [facility]; Protocol Stop: 02/28/18 10:01 Last Admin: 02/22/18 11:39 Dose: 200 mls/hr Cefepime HCl 0.5 gm/ Sodium (Chloride) 100 mls @ 100 mls/hr IVPB Q24H [facility]; Protocol Last Admin: 02/22/18 05:25 Dose: 100 mls/hr Methylprednisolone (Solu-Medrol) 20 mg IVP Q12 [facility] Montelukast Sodium (Singulair) 10 mg PO HS [facility] Last Admin: 02/21/18 23:17 Dose: 10 mg Dutasteride [Avodart ] 0.5 Mg - Non- Formulary 0.5 mg PO DAILY [facility] Wcxti-6-Dgvi Ethyl Esters (Lovaza) 2 gm PO BID [facility] Last Admin: 02/22/18 11:38 Dose: 2 gm Pantoprazole Sodium (Protonix Ec Tab) 40 mg PO BID [facility] Last Admin: 02/22/18 11:38 Dose: 40 mg Tamsulosin HCl (Flomax) 0.4 mg PO DAILY [facility] Last Admin: 02/22/18 11:37 Dose: 0.4 mg - Labs Labs: 02/22/18 06:30 02/22/18 06:30 - Constitutional Appears: No Acute Distress, Chronically Ill - Head Exam Head Exam: NORMAL INSPECTION - Neck Exam Neck Exam: absent: Meningismus - Respiratory Exam Respiratory Exam: Decreased Breath Sounds - Cardiovascular Exam Cardiovascular Exam: +S1, +S2 - GI/Abdominal Exam GI & Abdominal Exam: Soft. absent: Tenderness Assessment and Plan - Assessment and Plan (Free Text) Plan: Assessment consider sepsis due to right lower lobe HCAP chronic fibrosis in the lungs HTN COPD osteoarthritis gout benign prostatic hyperplasia history of umbilical hernia repair significant smoking history Plan continue Zyvox, Cefepime and Doxycycline day 2; blood cx are negative so far, follow up sputum cx, PCT, urine Legionella Ag reviewed CXR will continue to monitor clinically
--- NOTE | 2018-02-22 16:45 | PN ---
DATE: 02/22/2018 SUBJECTIVE: The patient has no complaints of chest pain or shortness of breath. PHYSICAL EXAMINATION: VITAL SIGNS: Temperature is 97.4, pulse of 82, blood pressure 101/60, respirations 18, O2 saturation 92%. GENERAL: The patient is lying in bed, flat, comfortable. HEENT: No oral lesion. Anicteric sclerae. Moist mucosa. NECK: No JVD, adenopathy, or thyromegaly. CARDIOVASCULAR: S1 and S2, regular. No murmurs, rubs, or gallops. LUNGS: Clear to auscultation bilaterally. No wheeze, rales, or rhonchi. ABDOMEN: Bowel sounds are positive, soft, nontender and nondistended. EXTREMITIES: No cyanosis, clubbing or edema. LABORATORY DATA: White count of 11.6, hemoglobin is 10.5. Chemistry shows a creatinine of 1.6, yesterday his creatinine is 2. Iron saturation is 15%. Vitamin D level was pending. A renal ultrasound done shows bilateral anechoic lesions consistent with cysts noted bilaterally. ASSESSMENT: 1. Acute kidney injury with chronic kidney disease stage III. 2. Hospital-acquired pneumonia. 3. Chronic obstructive pulmonary disease. 4. Hypertension. 5. Osteoarthritis. 6. Gout 7. Anemia most likely iron deficiency type. 8. Proteinuria 590 mg per 24 hours. PLAN: The patient has improvement of her acute kidney injury. The patient was given IV fluids. This was most likely secondary to prerenal causes. The patient was given Benadryl, this medication should be avoided given that the patient is older and can develop delirium. This had anticholinergic effect and can cause confusion in the elderly. The patient is currently on Brovana for COPD, this is on hold. The patient is on antibiotics with doxycycline for his pneumonia. The patient had blood cultures that have been negative. He is on Flomax. He is on Lovenox for DVT prophylaxis. Given the patient's BISHNU and CKD, this would be relatively contraindicated. I will discontinue the patient's Lovenox because it is renally excreted. I will place the patient on heparin for DVT prophylaxis. The patient is currently receiving cefepime for antibiotics as well. For the COPD, the patient is on steroids. The patient is also getting piperacillin and tazobactam. This does contain high concentrations of sodium salt and we will need to follow the patient carefully, so that he does not get volume overloaded. Currently, the patient is not on any IV fluids. We will continue with current treatment. The patient does have 50% iron saturation and ferritin is pending. Most likely, the patient will need IV iron therapy for iron deficiency anemia. The patient has a PTH that is pending to evaluate for secondary hyperparathyroidism. The patient has repeat blood work that is going to be done tomorrow. Judah Seals MD
[2018-02-22] MEDS: Cefepime IV 2 gm in NS 2 GM/100 ML BAG IVPB SCH (21:43)
--- NOTE | 2018-02-22 23:09 | PN ---
DATE: 02/22/2018 PULMONARY PROGRESS NOTE REFERRING PHYSICIAN: Santiago Collins MD. SUBJECTIVE: The patient is sitting on side of the bed. Night was unremarkable, tolerated BiPAP well. Family is at bedside. Breathing is better. Decreased cough. Still has sputum production. No nausea. No vomiting, diarrhea, leg pain or leg swelling. OBJECTIVE: GENERAL: In no acute distress. VITAL SIGNS: Temperature 98, heart rate is 84, respiratory rate 18, blood pressure 144/68, pulse ox 98% on nasal cannula. HEENT: Moist mucous membrane. Crowded airway. Mallampati score is 4. NECK: Supple. No JVD. LUNGS: Have decreased breath sounds at the bases. Some crackles and scattered rhonchi. HEART: S1 and S2. ABDOMEN: Soft, nontender. No organomegaly. EXTREMITIES: No edema. NEUROLOGICAL: Awake and alert. Follows simple command. MEDICATIONS: He is on Bentyl 10 mg daily, Brovana inhaled twice a day, doxycycline 100 mg twice a day, DuoNeb every 6 hours, Avodart 0.5 mg daily, Flomax 0.4 mg daily, heparin 5000 units subcu every 12 hours, Lovaza 2 g every 12 hours, cefepime 2 g IV every 12 hours, Neurontin 300 mg daily, Protonix 40 mg twice a day, Pulmicort inhaled twice a day, Singulair 10 mg daily, Solu-Medrol 20 mg twice a day, allopurinol 100 mg twice a day, Zyvox 600 mg every 12 hours. LABORATORY DATA: Reviewed, noted no new lab is available. IMPRESSION AND PLAN: Chronic obstructive lung disease, pulmonary fibrosis, also a component of interstitial infiltrate, hypertension, degenerative joint disease, history of right eye trauma in the remote past, history of asbestos exposure in the remote past, hypertension, pulmonary infiltrate. Pulmonary point of view, doing okay. Continue IV and inhaled bronchodilator, antibiotics, diuretics. Encourage CPAP use. We will recommend sleep study upon discharge as outpatient, PFT as outpatient. Spoke to the patient's family at bedside. All the questions answered. We will order labs for the morning. Thank you and we will follow with you. Santiago Valdez MD [facility] # [id number]
[2018-02-23] MEDS: Albuterol-Ipratrop 3 mg / 0.5 (3 ml) UD IH SCH ×4 (01:23→21:20)
[2018-02-23] MEDS: Budesonide 0.5 mg/2 ml Inhal Susp UD IH SCH ×2 (07:15→21:20)
[2018-02-23 08:01] LABS: ALB/GLOB RATIO 0.8 (1.1-1.8); ALBUMIN 3.2 g/dL (3.0-4.8); CALCIUM 8.9 mg/dL (8.4-10.5)
[2018-02-23 08:18] LABS: GRAN # 8.93 (1.4-6.5); GRAN % 85.8 % (50.0-68.0); HEMOGLOBIN 10.4 g/dL (14.0-18.0); LYMPH # 1.1 (1.2-3.4); LYMPH % 10.4 % (22.0-35.0); MEAN CELL VOLUME 86.9 fl (80.0-105.0); MEAN CORPUSCULAR HEMOGLOBIN 27.9 pg (25.0-35.0); MEAN CORPUSCULAR HGB CONC 32.1 g/dl (31.0-37.0); MONO # 0.4 (0.1-0.6); MONO % 3.8 % (1.0-6.0); RBC 3.73 10^6/uL (3.5-6.1); RED CELL DISTRIBUTION WIDTH 13.8 % (11.5-14.5); WHITE BLOOD COUNT 10.4 10^3/ul (4.5-11.0)
[2018-02-23] MEDS: Omega-3-Acid Ethyl Esters 1 GM Cap PO SCH ×2 (09:17→17:52)
[2018-02-23] MEDS: Linezolid 600 mg in D5W 300 ml 600 MG/300 ML BAG IVPB SCH (09:18)
[2018-02-23] MEDS: Pantoprazole 40 mg EC Tab PO SCH ×2 (09:18→17:47)
[2018-02-23] MEDS: MethylPREDNISolone 40 mg Vial IVP SCH ×2 (09:19→23:24)
[2018-02-23] MEDS: DUTASTERIDE 0.5 MG PO SCH (10:00)
[2018-02-23] MEDS: Cefepime IV 2 gm in NS 2 GM/100 ML BAG IVPB SCH ×2 (11:57→23:28)
--- NOTE | 2018-02-23 14:06 | CP.PCM.PN ---
Subjective - Date & Time of Evaluation Date of Evaluation: 02/23/18 Time of Evaluation: 10:30 - Subjective Subjective: Rik Paiz Internal Medicine Resident- Progress Note on Behalf of Hospitalist Team Subjective: Patient seen and examined at bedside. Resting comfortably in bed. Family present at bedside. No acute overnight events. Patient states severity of cough is significantly improved compared to baseline. As per daugther the patient is experiencing abnormal sensations/swelling in his feet. Denies fever, chills, chest pain, abdominal pain, nausea, vomiting, diarrhea, constipation, and urin berto symptoms. 12-point review of systems negative except as indicated in the HPI Physical Examination: - Constitutional Appears: No Acute Distress - Head Exam Head Exam: ATRAUMATIC, NORMOCEPHALIC - ENT Exam ENT Exam: Mucous Membranes Moist - Respiratory Exam Respiratory Exam: Decreased breath sounds absent: Accessory Muscle Use, Respiratory Distress - Cardiovascular Exam Cardiovascular Exam: RRR, +S1, +S2 - GI/Abdominal Exam GI & Abdominal Exam: Normal Bowel Sounds, Soft - Extremities Exam Extremities exam: Positive for: pedal pulses present. Negative for: calf tenderness, pedal edema - Neurological Exam Neurological exam: Alert, Oriented x3 - Psychiatric Exam Psychiatric exam: Normal Affect, Normal Mood - Skin Skin Exam: Dry, Normal Color, Warm Assessment and Plan: Patient is an 87yo male with a PMHx of COPD, HTN, osteoarthritis, and gout who was admitted for evaluation and treatment of green sputum production. Pneumonia - follow up legionella AG, mycoplasma, flu A/B - blood cultures negative after 48 hours - pulm consulted- recommend current managment and PFT/sleep study on outpatient basis - ID consulted- continue cefepime, doxycycline, and linezolid COPD - hold home brovana - continue Pulmicort, Singulair, and Duonebs - continue Bipap - c/w solumedrol 20mg IV q12 Foot Swelling/Paresthesias - start home turosemide on 02/24/2018 - vitamin B6 and B12 ordered and pending - hemoglobin A1c Hx of HTN - continue Amlodipine, hold if SBP less than 120 Hx of BPH - continue home flomax Hx of Gout - continue home allopurinol Prophylaxis - DVT ppx- lovenox - GI ppx- pantoprazole Patient seen, case discussed with, and plan approved by attending physician, Dr. Collins. Objective - Vital Signs/Intake and Output Vital Signs (last 24 hours): Temp Pulse Resp BP Pulse Ox 97.6 F 78 20 118/70 98 02/23/18 08:48 02/23/18 08:48 02/23/18 08:48 02/23/18 08:48 02/23/18 10:30 - Medications Medications: Current Medications Albuterol/Ipratropium (Duoneb 3 Mg/0.5 Mg (3 Ml) Ud) 3 ml IH Q6 [facility] Last Admin: 02/23/18 13:15 Dose: 3 ml Allopurinol (Zyloprim) 100 mg PO BID [facility] Last Admin: 02/23/18 09:19 Dose: 100 mg Arformoterol Tartrate (Brovana) 15 mcg IH [id number] [facility] Budesonide (Pulmicort Respules) 0.5 mg IH [id number] [facility] Last Admin: 02/23/18 07:15 Dose: 0.5 mg Dicyclomine HCl (Bentyl) 10 mg PO DAILY [facility] Last Admin: 02/23/18 09:26 Dose: 10 mg Doxycycline Hyclate (Doryx) 100 mg PO Q12 [facility]; Protocol Last Admin: 02/23/18 09:18 Dose: 100 mg Ferrous Gluconate (Fergon) 324 mg PO BID [facility] Last Admin: 02/23/18 11:59 Dose: 324 mg Gabapentin (Neurontin) 300 mg PO DAILY [facility]; Protocol Last Admin: 02/23/18 09:25 Dose: 300 mg Heparin Sodium (Porcine) (Heparin) 5,000 units SC Q12 [facility]; Protocol Last Admin: 02/23/18 09:19 Dose: 5,000 units Linezolid (Zyvox 600mg/300ml D5w) 600 mg in 300 mls @ 200 mls/hr IVPB Q12 [facility]; Protocol Stop: 02/28/18 10:01 Last Admin: 02/23/18 09:18 Dose: 200 mls/hr Cefepime HCl (Maxipime 2gm) 2 gm in 100 mls @ 100 mls/hr IVPB Q12 [facility]; Protocol Stop: 02/27/18 22:01 Last Admin: 02/23/18 11:57 Dose: 100 mls/hr Methylprednisolone (Solu-Medrol) 20 mg IVP Q12 [facility] Last Admin: 02/23/18 09:19 Dose: 20 mg Montelukast Sodium (Singulair) 10 mg PO [facility] Last Admin: 02/22/18 21:42 Dose: 10 mg Dutasteride [Avodart (] 0.5 Mg - (Home)) 0.5 mg PO DAILY [facility] Last Admin: 02/23/18 10:00 Dose: Not Given Bhuxy-8-Qads Ethyl Esters (Lovaza) 2 gm PO BID [facility] Last Admin: 02/23/18 09:17 Dose: 2 gm Pantoprazole Sodium (Protonix Ec Tab) 40 mg PO BID [facility] Last Admin: 02/23/18 09:18 Dose: 40 mg Tamsulosin HCl (Flomax) 0.4 mg PO DAILY [facility] Last Admin: 02/23/18 09:18 Dose: 0.4 mg Torsemide (Demadex) 10 mg PO DAILY [facility] - Labs Labs: 02/23/18 06:30 02/23/18 06:30
--- NOTE | 2018-02-23 14:17 | US ---
Date of service: 02/23/2018 PROCEDURE: Ultrasound of the Bladder HISTORY: check post-void residual COMPARISON: None available. TECHNIQUE: Sonographic evaluation of the bladder was performed. FINDINGS: Unremarkable without wall thickening or intraluminal debris. No calculus or gross mass lesion. No free fluid in pelvis. Prevoid Volume: cc. Post void residual: 38.29 cc. IMPRESSION: As above
--- NOTE | 2018-02-23 15:58 | CP.PCM.PN ---
Subjective - Date & Time of Evaluation Date of Evaluation: 02/23/18 Time of Evaluation: 12:30 - Subjective Subjective: No fevers, not in distress. Objective - Vital Signs/Intake and Output Vital Signs (last 24 hours): Temp Pulse Resp BP Pulse Ox 97.6 F 78 20 118/70 98 02/23/18 08:48 02/23/18 08:48 02/23/18 08:48 02/23/18 08:48 02/23/18 08:48 - Medications Medications: Current Medications Albuterol/Ipratropium (Duoneb 3 Mg/0.5 Mg (3 Ml) Ud) 3 ml IH Q6 [facility] Last Admin: 02/23/18 07:15 Dose: 3 ml Allopurinol (Zyloprim) 100 mg PO BID [facility] Last Admin: 02/22/18 17:02 Dose: 100 mg Arformoterol Tartrate (Brovana) 15 mcg IH [id number] [facility] Budesonide (Pulmicort Respules) 0.5 mg IH [id number] [facility] Last Admin: 02/22/18 19:45 Dose: 0.5 mg Dicyclomine HCl (Bentyl) 10 mg PO DAILY [facility] Last Admin: 02/22/18 11:37 Dose: 10 mg Doxycycline Hyclate (Doryx) 100 mg PO Q12 [facility]; Protocol Last Admin: 02/22/18 21:39 Dose: 100 mg Gabapentin (Neurontin) 300 mg PO DAILY [facility]; Protocol Last Admin: 02/22/18 11:38 Dose: 300 mg Heparin Sodium (Porcine) (Heparin) 5,000 units SC Q12 [facility]; Protocol Last Admin: 02/22/18 21:40 Dose: 5,000 units Linezolid (Zyvox 600mg/300ml D5w) 600 mg in 300 mls @ 200 mls/hr IVPB Q12 [facility]; Protocol Stop: 02/28/18 10:01 Last Admin: 02/22/18 21:43 Dose: 200 mls/hr Cefepime HCl (Maxipime 2gm) 2 gm in 100 mls @ 100 mls/hr IVPB Q12 [facility]; Protocol Stop: 02/27/18 22:01 Last Admin: 02/22/18 21:43 Dose: 100 mls/hr Methylprednisolone (Solu-Medrol) 20 mg IVP Q12 [facility] Last Admin: 02/22/18 21:39 Dose: 20 mg Montelukast Sodium (Singulair) 10 mg PO HS [facility] Last Admin: 02/22/18 21:42 Dose: 10 mg Dutasteride [Avodart (] 0.5 Mg - (Home)) 0.5 mg PO DAILY [facility] [id number] Ethyl Esters (Lovaza) 2 gm PO BID [facility] Last Admin: 02/22/18 17:02 Dose: 2 gm Pantoprazole Sodium (Protonix Ec Tab) 40 mg PO BID [facility] Last Admin: 02/22/18 17:02 Dose: 40 mg Tamsulosin HCl (Flomax) 0.4 mg PO DAILY [facility] Last Admin: 02/22/18 11:37 Dose: 0.4 mg - Labs Labs: 02/23/18 06:30 02/23/18 06:30 - Constitutional Appears: Chronically Ill - Head Exam Head Exam: NORMAL INSPECTION - Neck Exam Neck Exam: absent: Meningismus - Respiratory Exam Respiratory Exam: Decreased Breath Sounds - Cardiovascular Exam Cardiovascular Exam: +S1, +S2 - GI/Abdominal Exam GI & Abdominal Exam: Soft. absent: Tenderness Assessment and Plan - Assessment and Plan (Free Text) Plan: Assessment consider sepsis due to right lower lobe HCAP chronic fibrosis in the lungs HTN COPD osteoarthritis gout benign prostatic hyperplasia history of umbilical hernia repair significant smoking history Plan continue Zyvox, Cefepime and Doxycycline day 3 to complete 4-7 days; blood cx are negative; follow up sputum cx; urine Legionella Ag is negative reviewed CXR will continue to monitor clinically
--- NOTE | 2018-02-23 21:12 | PN ---
DATE: 02/23/2018 PULMONARY PROGRESS NOTE REFERRING PHYSICIAN: Santiago Collins MD. SUBJECTIVE: The patient is sitting side of the bed, is bedside. Feels okay. Tolerated BiPAP well. Cough and shortness of breath better. Nausea, vomiting, or diarrhea. No significant leg swelling. PHYSICAL EXAMINATION: GENERAL: In no acute distress. VITAL SIGNS: Temperature is 98, heart rate 78, respiratory rate 18, blood pressure 118/70, pulse ox 98% on room air. HEENT: Moist mucous membrane. Crowded airway. Mallampati score is 4. NECK: Supple. No JVD. LUNGS: Have decreased breath at the bases with few rhonchi. HEART: S1 and S2. ABDOMEN: Soft, nontender, no organomegaly. EXTREMITIES: No edema. NEUROLOGIC: Awake, alert,and follows simple command. MEDICATIONS: He is on Bentyl 10 mg daily, Brovana inhaled twice a day, Demadex 10 mg daily, doxycycline 100 mg twice a day, DuoNeb every 6 hours, also getting Avodart 0.5 mg daily, ferrous sulfate 324 mg daily, Flomax 0.4 mg daily, heparin 5000 units subcutaneously every 12 hours, Lovaza is 2 g twice a day, cefepime is 2 g IV every 12 hours, Neurontin 300 mg daily, Protonix 40 mg twice a day, Pulmicort inhaled twice a day, Singulair 10 mg daily, Solu-Medrol 20 mg twice a day, allopurinol 100 mg twice a day, and Zyvox 600 mg twice a day. LABORATORY DATA: Shows hemoglobin 10.4, hematocrit 32.4, WBC 10.4, platelet count is 258. Sodium 135, potassium 4.3, chloride 104, bicarbonate 23, BUN 41, creatinine 1.4, glucose 138. Uric acid yesterday was 7.6. Calcium 8.9. Iron is 30. ProBNP is 1400. Procalcitonin is 0.12. Microbiology, urine culture has some gram-positive cocci. Blood culture is negative. IMPRESSION AND PLAN: Chronic obstructive lung disease, pulmonary fibrosis, a component of interstitial lung disease, hypertension, degenerative joint disease, may have sleep apnea syndrome, history of asbestos exposure in the past, hypertension, chronic pulmonary infiltrate. Spoke to the patient's at bedside. All the questions answered. Pulmonary point of view, doing okay. Continue IV and inhaled bronchodilator. Bronchodilator. Continue to encourage CPAP use. Keep head at 45 degrees. Gastric and DVT prophylaxis. Fall precaution. May benefit from therapy. Thank you and we will follow with you. Santiago Valdez MD
[2018-02-24] MEDS: Albuterol-Ipratrop 3 mg / 0.5 (3 ml) UD IH SCH ×4 (01:17→19:21)
[2018-02-24] MEDS: Budesonide 0.5 mg/2 ml Inhal Susp UD IH SCH ×2 (07:35→19:21)
[2018-02-24 07:47] LABS: GRAN # 7.53 (1.4-6.5); GRAN % 82.2 % (50.0-68.0); HEMOGLOBIN 12.1 g/dL (14.0-18.0); LYMPH # 1.2 (1.2-3.4); LYMPH % 13.1 % (22.0-35.0); MEAN CELL VOLUME 86.7 fl (80.0-105.0); MEAN CORPUSCULAR HEMOGLOBIN 28.3 pg (25.0-35.0); MEAN CORPUSCULAR HGB CONC 32.7 g/dl (31.0-37.0); MEAN PLATELET VOLUME 9.4 fl (7.0-11.0); MONO # 0.4 (0.1-0.6); MONO % 4.7 % (1.0-6.0); RBC 4.27 10^6/uL (3.5-6.1); RED CELL DISTRIBUTION WIDTH 13.5 % (11.5-14.5); WHITE BLOOD COUNT 9.2 10^3/ul (4.5-11.0)
[2018-02-24 08:16] LABS: ALB/GLOB RATIO 0.8 (1.1-1.8); ALBUMIN 3.8 g/dL (3.0-4.8); CALCIUM 9.3 mg/dL (8.4-10.5)
--- NOTE | 2018-02-24 09:06 | PN ---
DATE: 02/23/2018 SUBJECTIVE: The patient has no complaints of any chest pain. No shortness of breath or headaches. OBJECTIVE: VITAL SIGNS: Temperature is 97.6, pulse is 78, blood pressure 118/70, respirations 20. GENERAL: The patient is lying in bed, flat, comfortable. HEENT: No oral lesion. Anicteric sclerae. Moist mucosa. NECK: No JVD, adenopathy, or thyromegaly. CARDIOVASCULAR: S1 and S2, regular. No murmurs, rubs, or gallops. LUNGS: Clear to auscultation bilaterally. No wheeze, rales, or rhonchi. ABDOMEN: Bowel sounds are positive. Soft, nontender and nondistended. EXTREMITIES: No cyanosis, clubbing or edema. DATA: White count of 10.4, hemoglobin 10.4, creatinine is 1.4. ASSESSMENT: 1. Acute kidney injury, chronic kidney disease stage III. 2. Hospital-acquired pneumonia. 3. Chronic obstructive pulmonary disease. 4. Hypertension. 5. Osteoarthritis. 6. Proteinuria, 590 mg per 24 hours. 7. Anemia secondary to iron deficiency. 8. Gout. 9. Benign prostate hypertrophy. PLAN: The patient is currently comfortable. He has iron saturation that is 15%. His hemoglobin is 10.4. He is going to be need to be on oral iron. He is on Flomax for his BPH. He is going to be on cefepime for antibiotics. The patient is on heparin for DVT prophylaxis. He is going to continue with Solu-Medrol for his COPD. He is on allopurinol. He is on BiPAP. The patient's creatinine has improved to 1.4. The patient was going to have repeat blood work tomorrow. This is a coverage for Dr. Becerra. Judah Seals MD
[2018-02-24] MEDS: MethylPREDNISolone 40 mg Vial IVP SCH ×2 (10:00→21:38)
[2018-02-24] MEDS: Omega-3-Acid Ethyl Esters 1 GM Cap PO SCH ×2 (10:00→19:09)
[2018-02-24] MEDS: Cefepime IV 2 gm in NS 2 GM/100 ML BAG IVPB SCH (10:00)
[2018-02-24] MEDS: Pantoprazole 40 mg EC Tab PO SCH ×2 (10:00→19:10)
[2018-02-24] MEDS ORDERED: levoFLOXacin 500 MG TAB PO ONE (12:15)
[2018-02-24] MEDS: DUTASTERIDE 0.5 MG PO SCH (12:41)
--- NOTE | 2018-02-24 12:57 | RAD ---
Date of service: 02/24/2018 HISTORY: cough COMPARISON: 02/20/2018 FINDINGS: LUNGS: Patchy bibasilar infiltrates. Slight improvement on the right side PLEURA: No significant pleural effusion identified, no pneumothorax apparent. CARDIOVASCULAR: Moderate cardiomegaly OSSEOUS STRUCTURES: No significant abnormalities. VISUALIZED UPPER ABDOMEN: Normal. OTHER FINDINGS: None. IMPRESSION: patchy bibasilar infiltrates. Slight improvement on the right side
--- NOTE | 2018-02-24 20:21 | CP.PCM.PN ---
<Kyrie Velazquez - Last Filed: 02/24/18 20:34> Subjective - Date & Time of Evaluation Date of Evaluation: 02/24/18 Time of Evaluation: 20:19 - Subjective Subjective: pt seen and examined. Pt reports bl foot pain Objective - Vital Signs/Intake and Output Vital Signs (last 24 hours): Temp Pulse Resp BP Pulse Ox 97.9 F 85 20 132/82 97 02/24/18 14:00 02/24/18 14:00 02/24/18 14:00 02/24/18 14:00 02/24/18 14:00 Intake and Output: 02/24/18 02/25/18 18:59 06:59 Intake Total 460 Balance 460 - Medications Medications: Current Medications Albuterol/Ipratropium (Duoneb 3 Mg/0.5 Mg (3 Ml) Ud) 3 ml IH Q6 [facility] Last Admin: 02/24/18 19:21 Dose: 3 ml Allopurinol (Zyloprim) 100 mg PO BID [facility] Last Admin: 02/24/18 19:09 Dose: 100 mg Arformoterol Tartrate (Brovana) 15 mcg IH [id number] [facility] Budesonide (Pulmicort Respules) 0.5 mg IH [id number] [facility] Last Admin: 02/24/18 19:21 Dose: 0.5 mg Dicyclomine HCl (Bentyl) 10 mg PO DAILY [facility] Last Admin: 02/24/18 10:00 Dose: 10 mg Ferrous Gluconate (Fergon) 324 mg PO BID [facility] Last Admin: 02/24/18 19:09 Dose: 324 mg Gabapentin (Neurontin) 300 mg PO DAILY [facility]; Protocol Last Admin: 02/24/18 10:00 Dose: 300 mg Heparin Sodium (Porcine) (Heparin) 5,000 units SC Q12 [facility]; Protocol Last Admin: 02/24/18 10:00 Dose: 5,000 units Levofloxacin (Levaquin) 250 mg PO DAILY [facility] Methylprednisolone (Solu-Medrol) 20 mg IVP Q12 [facility] Last Admin: 02/24/18 10:00 Dose: 20 mg Montelukast Sodium (Singulair) 10 mg PO HS [facility] Last Admin: 02/23/18 23:27 Dose: 10 mg Dutasteride [Avodart (] 0.5 Mg - (Home)) 0.5 mg PO DAILY [facility] Last Admin: 02/24/18 12:41 Dose: Not Given Rpmdm-3-Qhab Ethyl Esters (Lovaza) 2 gm PO BID [facility] Last Admin: 02/24/18 19:09 Dose: 2 gm Pantoprazole Sodium (Protonix Ec Tab) 40 mg PO BID [facility] Last Admin: 02/24/18 19:10 Dose: 40 mg Tamsulosin HCl (Flomax) 0.4 mg PO DAILY [facility] Last Admin: 02/24/18 10:00 Dose: 0.4 mg Torsemide (Demadex) 10 mg PO DAILY [facility] Last Admin: 02/24/18 10:00 Dose: 10 mg - Labs Labs: 02/24/18 07:30 02/24/18 07:30 - Head Exam Head Exam: ATRAUMATIC, NORMOCEPHALIC - Eye Exam Eye Exam: EOMI - Respiratory Exam Respiratory Exam: Rales, NORMAL BREATHING PATTERN - Cardiovascular Exam Cardiovascular Exam: RRR, +S1, +S2 - GI/Abdominal Exam GI & Abdominal Exam: Soft, Normal Bowel Sounds - Extremities Exam Additional comments: pt reports foot discomfort Assessment and Plan - Assessment and Plan (Free Text) Assessment: Patient is an 87yo male with a PMHx of COPD, HTN, osteoarthritis, and gout who was admitted for evaluation and treatment of green sputum production. Plan: Pneumonia - legionella AG negative - mycoplasma negative - blood cultures negative after 48 hours - pulm consulted- recommend current managment and PFT/sleep study on outpatient basis - start levoquin - PT/OT consulted - ID consulted COPD - hold home brovana - continue Pulmicort, Singulair, and Duonebs - continue Bipap - solumedrol 20mg IV q12 SOB, ?CHF - 40 IV lasix - proBNP 1740 Foot Swelling/Paresthesias - start home turosemide on 02/24/2018 - B12 237 - HA1C 6.2 Hx of HTN - continue Amlodipine, hold if SBP less than 120 Hx of BPH - continue home flomax Hx of Gout - continue home allopurinol Prophylaxis - DVT ppx- lovenox - GI ppx- pantoprazole Pt seen, examined, assessment and plan discussed with Dr Rahel Velazquez PGY1 <Mingo Mcginnis - Last Filed: 02/25/18 09:12> Objective - Vital Signs/Intake and Output Vital Signs (last 24 hours): Temp Pulse Resp BP Pulse Ox 98 F 95 H 18 99/70 L 94 L 02/24/18 22:40 02/24/18 22:40 02/24/18 22:40 02/24/18 22:40 02/24/18 22:40 Intake and Output: 02/25/18 02/25/18 06:59 18:59 Intake Total 180 Output Total 1 Balance 179 - Medications Medications: Current Medications Albuterol/Ipratropium (Duoneb 3 Mg/0.5 Mg (3 Ml) Ud) 3 ml IH Q6 [facility] Last Admin: 02/25/18 07:06 Dose: 3 ml Allopurinol (Zyloprim) 100 mg PO BID [facility] Last Admin: 02/24/18 19:09 Dose: 100 mg Arformoterol Tartrate (Brovana) 15 mcg IH [id number] [facility] Budesonide (Pulmicort Respules) 0.5 mg IH [id number] [facility] Last Admin: 02/25/18 07:06 Dose: 0.5 mg Dicyclomine HCl (Bentyl) 10 mg PO DAILY [facility] Last Admin: 02/24/18 10:00 Dose: 10 mg Ferrous Gluconate (Fergon) 324 mg PO BID [facility] Last Admin: 02/24/18 19:09 Dose: 324 mg Gabapentin (Neurontin) 300 mg PO DAILY [facility]; Protocol Last Admin: 02/24/18 10:00 Dose: 300 mg Heparin Sodium (Porcine) (Heparin) 5,000 units SC Q12 [facility]; Protocol Last Admin: 02/24/18 21:38 Dose: 5,000 units Levofloxacin (Levaquin) 250 mg PO DAILY [facility] Methylprednisolone (Solu-Medrol) 20 mg IVP Q12 [facility] Last Admin: 02/24/18 21:38 Dose: 20 mg Montelukast Sodium (Singulair) 10 mg PO HS [facility] Last Admin: 02/24/18 21:37 Dose: 10 mg Dutasteride [Avodart (] 0.5 Mg - (Home)) 0.5 mg PO DAILY [facility] Last Admin: 02/24/18 12:41 Dose: Not Given Ahhgo-5-Pelh Ethyl Esters (Lovaza) 2 gm PO BID [facility] Last Admin: 02/24/18 19:09 Dose: 2 gm Pantoprazole Sodium (Protonix Ec Tab) 40 mg PO BID [facility] Last Admin: 02/24/18 19:10 Dose: 40 mg Tamsulosin HCl (Flomax) 0.4 mg PO DAILY [facility] Last Admin: 02/24/18 10:00 Dose: 0.4 mg Torsemide (Demadex) 10 mg PO DAILY [facility] Last Admin: 02/24/18 10:00 Dose: 10 mg - Labs Labs: 02/25/18 08:00 02/25/18 08:00 Attending/Attestation - Attestation I have personally seen and examined this patient.: Yes I have fully participated in the care of the patient.: Yes I have reviewed all pertinent clinical information, including history, physical exam and plan: Yes Notes (Text): Patient clinically improving; required Uzbek translation via Resident denies sob or cough; cardiopulmonary exam with rales; bilateral lower extremity 2+ pitting edema Will f/u on repeat cxr; diuresis with iv lasix
--- NOTE | 2018-02-24 21:44 | CP.PCM.PN ---
Subjective - Date & Time of Evaluation Date of Evaluation: 02/24/18 Time of Evaluation: 12:00 - Subjective Subjective: Comfortable, no fevers, not in distress. Breathing better, no cough. Objective - Vital Signs/Intake and Output Vital Signs (last 24 hours): Temp Pulse Resp BP Pulse Ox 97.6 F 83 20 144/75 95 02/24/18 08:22 02/24/18 08:22 02/24/18 08:22 02/24/18 08:22 02/24/18 08:22 Intake and Output: 02/24/18 02/24/18 06:59 18:59 Intake Total 660 Balance 660 - Medications Medications: Current Medications Albuterol/Ipratropium (Duoneb 3 Mg/0.5 Mg (3 Ml) Ud) 3 ml IH Q6 [facility] Last Admin: 02/24/18 07:36 Dose: 3 ml Allopurinol (Zyloprim) 100 mg PO BID [facility] Last Admin: 02/23/18 17:47 Dose: 100 mg Arformoterol Tartrate (Brovana) 15 mcg IH [id number] [facility] Budesonide (Pulmicort Respules) 0.5 mg IH [id number] [facility] Last Admin: 02/24/18 07:35 Dose: 0.5 mg Dicyclomine HCl (Bentyl) 10 mg PO DAILY [facility] Last Admin: 02/23/18 09:26 Dose: 10 mg Doxycycline Hyclate (Doryx) 100 mg PO Q12 [facility]; Protocol Last Admin: 02/23/18 23:23 Dose: 100 mg Ferrous Gluconate (Fergon) 324 mg PO BID [facility] Last Admin: 02/23/18 17:46 Dose: 324 mg Gabapentin (Neurontin) 300 mg PO DAILY [facility]; Protocol Last Admin: 02/23/18 09:25 Dose: 300 mg Heparin Sodium (Porcine) (Heparin) 5,000 units SC Q12 [facility]; Protocol Last Admin: 02/23/18 23:26 Dose: 5,000 units Linezolid (Zyvox 600mg/300ml D5w) 600 mg in 300 mls @ 200 mls/hr IVPB Q12 [facility]; Protocol Stop: 02/28/18 10:01 Last Admin: 02/23/18 09:18 Dose: 200 mls/hr Cefepime HCl (Maxipime 2gm) 2 gm in 100 mls @ 100 mls/hr IVPB Q12 [facility]; Protocol Stop: 02/27/18 22:01 Last Admin: 02/23/18 23:28 Dose: 100 mls/hr Methylprednisolone (Solu-Medrol) 20 mg IVP Q12 [facility] Last Admin: 02/23/18 23:24 Dose: 20 mg Montelukast Sodium (Singulair) 10 mg PO HS [facility] Last Admin: 02/23/18 23:27 Dose: 10 mg Dutasteride [Avodart (] 0.5 Mg - (Home)) 0.5 mg PO DAILY [facility] Last Admin: 02/23/18 10:00 Dose: Not Given [id number] Ethyl Esters (Lovaza) 2 gm PO BID [facility] Last Admin: 02/23/18 17:52 Dose: 2 gm Pantoprazole Sodium (Protonix Ec Tab) 40 mg PO BID [facility] Last Admin: 02/23/18 17:47 Dose: 40 mg Tamsulosin HCl (Flomax) 0.4 mg PO DAILY [facility] Last Admin: 02/23/18 09:18 Dose: 0.4 mg Torsemide (Demadex) 10 mg PO DAILY [facility] - Labs Labs: 02/24/18 07:30 02/24/18 07:30 - Constitutional Appears: No Acute Distress, Chronically Ill - Head Exam Head Exam: NORMAL INSPECTION - Respiratory Exam Respiratory Exam: Decreased Breath Sounds - Cardiovascular Exam Cardiovascular Exam: +S1, +S2 - GI/Abdominal Exam GI & Abdominal Exam: Soft. absent: Tenderness Assessment and Plan - Assessment and Plan (Free Text) Plan: Assessment consider sepsis due to right lower lobe HCAP chronic fibrosis in the lungs HTN COPD osteoarthritis gout benign prostatic hyperplasia history of umbilical hernia repair significant smoking history Plan cultures have been negative - can switch Zyvox, Cefepime and Doxycycline to Levaquin (day 4 of antibiotics) to complete up to 7 days of total antibiotic therapy; urine Legionella Ag is negative reviewed CXR will continue to monitor clinically
[2018-02-24 22:41] VITALS: RESP 18
--- NOTE | 2018-02-25 01:31 | PN ---
DATE: 02/24/2018 PULMONARY PROGRESS NOTE REFERRING PHYSICIAN: Santiago Collins MD SUBJECTIVE: He is sitting on the side of the bed. Night was unremarkable. Feels better. Decreased cough. Decrease shortness breath. No nausea, vomiting, or diarrhea. No leg pain or leg swelling. OBJECTIVE: GENERAL: In no acute distress. VITAL SIGNS: Temperature is 98, heart rate 85, respiratory rate is 20, blood pressure 132/82, pulse 77% room air. HEENT: Moist mucous membrane. Crowded airway. Mallampati score is 4. NECK: Supple. No JVD. LUNGS: Have a better airflow. Prolonged expiratory phase. No more wheezing. HEART: S1 and S2. ABDOMEN: Soft, nontender. No organomegaly. EXTREMITIES: No edema. NEUROLOGIC: Awake and alert. Follows simple command. MEDICATIONS: He is on Bentyl 10 mg daily, Brovana inhaled twice a day, Demadex 10 mg daily, DuoNeb every 6 hour, Avodart 0.5 mg daily, ferrous gluconate 325 mg twice a day, Flomax 0.4 mg daily, heparin 5000 subcu every 12 hour, Levaquin 50 mg daily, Lovaza 2 g twice a day, gabapentin 300 mg daily, Protonix 40 mg twice a day, Pulmicort inhaled twice a day, Singulair 10 mg daily, Solu-Medrol 20 mg twice a day, allopurinol 100 mg twice a day. LABORATORY DATA: Shows hemoglobin 12.1, hematocrit 37, WBC 9.2, platelet count is 282. Sodium 136, potassium 4.8, chloride 103, bicarbonate 22, BUN 38, creatinine 1.4, glucose 137, calcium is . AST 32, ALT 17, alk phos is 68. ProBNP 1740. Albumin is 3.8. Microbiology of the head. Urine culture has some gram-positive cocci. Blood culture has been negative. Chest x-ray done shows patchy basilar infiltrate slightly improved right side. IMPRESSION AND PLAN: Chronic obstructive lung disease, pulmonary fibrosis. There is interstitial component, hypertension, degenerative joint disease, sleep apnea syndrome, history of asbestos exposure in the remote past, hypertension, chronic pulmonary infiltrate. Pulmonary point of view, doing well. Encourage CPAP use. Keep head at 45 degrees, intravenous and inhaled bronchodilator, gastric prophylaxis, deep vein thrombosis prophylaxis. Outpatient attended sleep study and pulmonary function test. Fall precaution. Thank you and we will follow with you. Santiago Valdez MD
[2018-02-25] MEDS: Albuterol-Ipratrop 3 mg / 0.5 (3 ml) UD IH SCH ×3 (02:39→13:12)
[2018-02-25] MEDS: Budesonide 0.5 mg/2 ml Inhal Susp UD IH SCH (07:06)
[2018-02-25 08:20] LABS: GRAN # 5.93 (1.4-6.5); GRAN % 75.2 % (50.0-68.0); HEMOGLOBIN 11.3 g/dL (14.0-18.0); LYMPH # 1.4 (1.2-3.4); LYMPH % 17.1 % (22.0-35.0); MEAN CELL VOLUME 86.9 fl (80.0-105.0); MEAN CORPUSCULAR HEMOGLOBIN 27.9 pg (25.0-35.0); MEAN CORPUSCULAR HGB CONC 32.1 g/dl (31.0-37.0); MEAN PLATELET VOLUME 9.7 fl (7.0-11.0); MONO # 0.6 (0.1-0.6); MONO % 7.7 % (1.0-6.0); RBC 4.05 10^6/uL (3.5-6.1); RED CELL DISTRIBUTION WIDTH 13.5 % (11.5-14.5); WHITE BLOOD COUNT 7.9 10^3/ul (4.5-11.0)
[2018-02-25 08:33] LABS: ALB/GLOB RATIO 0.9 (1.1-1.8); ALBUMIN 3.5 g/dL (3.0-4.8); CALCIUM 9.2 mg/dL (8.4-10.5)
[2018-02-25] MEDS: DUTASTERIDE 0.5 MG PO SCH (09:49)
[2018-02-25] MEDS: Omega-3-Acid Ethyl Esters 1 GM Cap PO SCH (09:51)
[2018-02-25] MEDS: Pantoprazole 40 mg EC Tab PO SCH (09:52)
[2018-02-25] MEDS: MethylPREDNISolone 40 mg Vial IVP SCH (09:54)
[2018-02-25 14:48] VITALS: BP 111/75; PULSE 82; TEMP 97.4; O2SAT 96
--- NOTE | 2018-02-25 18:22 | CP.PCM.DIS ---
<Kyrie Velazquez - Last Filed: 02/25/18 18:29> Provider - Provider Date of Admission: 02/21/18 01:17 Attending physician: Santiago Collins MD Time Spent in preparation of Discharge (in minutes): 45 Diagnosis - Discharge Diagnosis (1) Chest pain Status: Acute Priority: High (2) Bronchiectasis Status: Acute Priority: High (3) Pneumonia Status: Acute Priority: High Hospital Course - Lab Results Lab Results: Micro Results 02/20/18 21:00 Blood Blood Culture - Preliminary NO GROWTH AFTER 4 DAYS 02/20/18 20:50 Blood Blood Culture - Preliminary NO GROWTH AFTER 4 DAYS 02/22/18 19:35 Nose MRSA Culture (Admit) - Final MRSA NOT DETECTED 02/21/18 17:27 Urine,Clean Catch Urine Culture - Final No Growth (<1,000 CFU/ML) 02/21/18 07:50 Urine Urine Culture - Final Gram Positive Cocci Most Recent Lab Values WBC 7.9 10^3/ul (4.5-11.0) 02/25/18 08:00 RBC 4.05 10^6/uL (3.5-6.1) 02/25/18 08:00 Hgb 11.3 g/dL (14.0-18.0) L 02/25/18 08:00 Hct 35.2 % (42.0-52.0) L 02/25/18 08:00 MCV 86.9 fl (80.0-105.0) 02/25/18 08:00 MCH 27.9 pg (25.0-35.0) 02/25/18 08:00 MCHC 32.1 g/dl (31.0-37.0) 02/25/18 08:00 RDW 13.5 % (11.5-14.5) 02/25/18 08:00 Plt Count 267 10^3/uL (120.0-450.0) 02/25/18 08:00 MPV 9.7 fl (7.0-11.0) 02/25/18 08:00 Gran % 75.2 % (50.0-68.0) H 02/25/18 08:00 Lymph % (Auto) 17.1 % (22.0-35.0) L 02/25/18 08:00 [place] % (Auto) 7.7 % (1.0-6.0) H 02/25/18 08:00 Eos % (Auto) 0.0 % (1.5-5.0) L 02/25/18 08:00 Baso % (Auto) 0.0 % (0.0-3.0) 02/25/18 08:00 Gran # 5.93 (1.4-6.5) 02/25/18 08:00 Lymph # (Auto) 1.4 (1.2-3.4) 02/25/18 08:00 [place] # (Auto) 0.6 (0.1-0.6) 02/25/18 08:00 Eos # (Auto) 0.0 (0.0-0.7) 02/25/18 08:00 Baso # (Auto) 0.00 K/mm3 (0.0-2.0) 02/25/18 08:00 pCO2 41 mm/Hg (35-45) 02/21/18 03:18 pO2 101.0 mm/Hg (80-100) H 02/21/18 03:18 HCO3 25.4 mmol/L (21-28) 02/21/18 03:18 ABG pH 7.40 (7.35-7.45) 02/21/18 03:18 ABG Total CO2 26.7 mmol.L (22-28) 02/21/18 03:18 ABG O2 Saturation 98.4 % (95-98) H 02/21/18 03:18 ABG O2 Content 15.7 ML/dl (15-23) 02/21/18 03:18 ABG Base Excess 0.5 mmol/L (-2.0-3.0) 02/21/18 03:18 ABG Hemoglobin 11.5 g/dL (11.7-17.4) L 02/21/18 03:18 ABG Carboxyhemoglobin 1.5 % (0.5-1.5) 02/21/18 03:18 POC ABG HHb (Measured) 1.6 % (0-5) 02/21/18 03:18 ABG Methemoglobin 0.5 % (0.0-3.0) 02/21/18 03:18 ABG O2 Capacity 16.0 mL/dl (16-24) 10/05/18 03:18 VBG pH 7.38 (7.32-7.43) 02/21/18 02:25 VBG pCO2 45.0 (40-60) 02/21/18 02:25 VBG HCO3 26.6 mmol/l (21-28) 02/21/18 02:25 VBG Total CO2 28.0 mmol.L (22-28) 02/21/18 02:25 VBG O2 Sat (Calc) 97.7 % (40-65) H 02/21/18 02:25 VBG Base Excess 1.0 mmol/L (0.0-2.0) 02/21/18 02:25 VBG Potassium 4.4 mmol/L (3.6-5.2) 02/21/18 02:25 Hgb O2 Saturation 96.3 % (95.0-98.0) 02/21/18 03:18 Sodium 135.0 mmol/L (132-148) 02/21/18 02:25 Chloride 102.0 mmol/L (98-107) 02/21/18 02:25 Glucose 124 mg/dl (75-110) H 02/21/18 02:25 Lactate 0.9 mmol/L (0.7-2.1) 02/21/18 02:25 FiO2 40.0 % 02/21/18 03:18 Sodium 135 mmol/L (132-148) 02/25/18 08:00 Potassium 4.4 mmol/L (3.6-5.0) 02/25/18 08:00 Chloride 101 mmol/L (98-107) 02/25/18 08:00 Carbon Dioxide 25 mmol/L (21-33) 02/25/18 08:00 Anion Gap 14 (10-20) 02/25/18 08:00 BUN 53 mg/dL (7-21) H 02/25/18 08:00 Creatinine 1.8 mg/dl (0.8-1.5) H 02/25/18 08:00 Est GFR ( Amer) 44 02/25/18 08:00 Est GFR (Non-Af Amer) 36 02/25/18 08:00 Random Glucose 131 mg/dL (70-110) H 02/25/18 08:00 Hemoglobin A1c 6.2 % (4.2-6.5) 02/23/18 07:00 Uric Acid 7.6 mg/dL (3.5-8.5) 02/22/18 06:30 Calcium 9.2 mg/dL (8.4-10.5) 02/25/18 08:00 Magnesium 1.7 mg/dL (1.7-2.2) 02/20/18 21:00 Iron 30 ug/dL (45-180) L 02/22/18 06:30 TIBC 201 ug/dL (261-462) L 02/22/18 06:30 % Saturation 15 % (20-55) L 02/22/18 06:30 Ferritin 231.0 ng/mL 02/22/18 06:30 Total Bilirubin 0.4 mg/dL (0.2-1.3) 02/25/18 08:00 AST 29 U/L (17-59) 02/25/18 08:00 ALT 27 U/L (7-56) 02/25/18 08:00 Alkaline Phosphatase 58 U/L (38-126) 02/25/18 08:00 Troponin I 0.02 ng/mL D 02/20/18 21:00 NT-Pro-B Natriuret Pep 1740 pg/mL (0-450) H 02/24/18 12:00 Total Protein 7.5 g/dL (5.8-8.3) 02/25/18 08:00 Albumin 3.5 g/dL (3.0-4.8) 02/25/18 08:00 Globulin 4.0 gm/dL 02/25/18 08:00 Albumin/Globulin Ratio 0.9 (1.1-1.8) L 02/25/18 08:00 Vitamin B12 237 pg/mL (239-931) L 02/23/18 07:00 25-OH Vitamin D Total 27.0 NG/ML (30.0-100.0) L 02/22/18 06:30 Procalcitonin 0.12 NG/ML (0.19-0.49) L 02/23/18 06:30 TSH 3rd Generation 2.21 mIU/mL (0.46-4.68) 02/20/18 21:00 Calcium (PTH Intact) 8.4 mg/dL (8.6-10.3) L 02/22/18 06:30 PTH w/Ion &Tot Calcium 76 pg/mL (14-64) H 02/22/18 06:30 Venous Blood Potassium 4.4 mmol/L (3.6-5.2) 02/21/18 02:25 Urine Color Yellow (YELLOW) 02/21/18 10:55 Urine Appearance Clear (CLEAR) 02/21/18 10:55 Urine pH 6.0 (4.7-8.0) 02/21/18 10:55 Ur Specific [place] 1.025 (1.005-1.035) 02/21/18 10:55 Urine Protein 100 mg/dL (<30 mg/dL) H 02/21/18 10:55 Urine Glucose (UA) Negative mg/dL (NEGATIVE) 02/21/18 10:55 Urine Ketones Negative mg/dL (NEGATIVE) 02/21/18 10:55 Urine Blood Trace-intact (NEGATIVE) H 02/21/18 10:55 Urine Nitrate Negative (NEGATIVE) 02/21/18 10:55 Urine Bilirubin Negative (NEGATIVE) 02/21/18 10:55 Urine Urobilinogen 1.0 E.U./dL (<1 E.U./dL) H 02/21/18 10:55 Ur Leukocyte Esterase Moderate [place]/uL (NEGATIVE) H 02/21/18 10:55 Urine RBC 2 - 5 /hpf (0-2) 02/21/18 10:55 Urine WBC 20 - 25 /hpf (0-6) 02/21/18 10:55 Ur Epithelial Cells 4 - 5 /hpf (0-5) 02/21/18 10:55 Amorphous Sediment Few 02/21/18 10:55 Urine Bacteria Many (NEG) 02/21/18 10:55 Coarse Granular Casts Trace /hpf (0-2) H 02/21/18 10:55 Urine Other Uyeast 02/21/18 10:55 Ur Random Creatinine 117 mg/dL 02/21/18 17:27 U Random Total Protein Cancelled 02/21/18 17:27 Ur Random Sodium 47 meq/L 02/21/18 17:27 Ur Random Urea Nitrogn 1130 mg/dL 02/21/18 17:27 Urine Creatinine 133 mg/dL (20-370) 02/21/18 17:27 Urine Microalbumin 24.3 mg/dL 02/21/18 17:27 Microalb/Creat Ratio 183 (<30) H 02/21/18 17:27 Ur L.pneumophila Ag Negative (NEGATIVE) 02/21/18 17:27 Mycoplasma pneumon IgM Negative (NEGATIVE) 02/20/18 21:00 Ur Strep pneumoniae Ag Not detected (Not Detected) 02/21/18 17:27 - Hospital Course Hospital Course: Pt is an 87yo male with a PMH of COPD, HTN, osteoarthritis, and gout presented to the ED after seeing his primary care physician who sent him to the ED for green sputum production. Pt stated he his cough often wakes him up at night. Pt reports that he has had a productive cough for about 2 years. Pt denies blood in the sputum Pt states that this has gotten progressively worse over the past week. Pt denies fever, chills, chest pain, nausea or vomiting. Pt reports he had a couple episodes of diarrhea a week ago, but denies confusion or neurological symptoms. Pt give a prescription for levoquin PO to be taken as an outpt. - Date & Time of H&P Date of H&P: 02/25/18 Time of H&P: 18:26 Discharge Exam - Head Exam Head Exam: NORMAL INSPECTION - Respiratory Exam Respiratory Exam: absent: Respiratory Distress - Cardiovascular Exam Cardiovascular Exam: REGULAR RHYTHM - GI/Abdominal Exam GI & Abdominal Exam: Normal Bowel Sounds Discharge Plan - Discharge Medications Prescriptions: RX: Ferrous Gluconate [Fergon] 324 mg PO BID #30 tab RX: levoFLOXacin [Levaquin] 750 mg PO DAILY #10 tab - Follow Up Plan Condition: GOOD Disposition: HOME/ ROUTINE Instructions: Pneumonia in Adults, Chest Pain (DC), Chest Pain (GEN) Additional Instructions: 1. please follow up with your primary care physician within 1 week 2. please resume your home meds and take as directed 3. please take you levofloxacin 750mg once a day, for the next 3 days 3. if your symptoms return or worsen, please go to the nearest emergency department <Mingo Mcginnis - Last Filed: 02/25/18 19:32> Provider - Provider Date of Admission: 02/21/18 01:17 Attending physician: Santiago Collins MD Hospital Course - Lab Results Lab Results: Micro Results 02/20/18 21:00 Blood Blood Culture - Preliminary NO GROWTH AFTER 4 DAYS 02/20/18 20:50 Blood Blood Culture - Preliminary NO GROWTH AFTER 4 DAYS 02/22/18 19:35 Nose MRSA Culture (Admit) - Final MRSA NOT DETECTED 02/21/18 17:27 Urine,Clean Catch Urine Culture - Final No Growth (<1,000 CFU/ML) 02/21/18 07:50 Urine Urine Culture - Final Gram Positive Cocci Most Recent Lab Values WBC 7.9 10^3/ul (4.5-11.0) 02/25/18 08:00 RBC 4.05 10^6/uL (3.5-6.1) 02/25/18 08:00 Hgb 11.3 g/dL (14.0-18.0) L 02/25/18 08:00 Hct 35.2 % (42.0-52.0) L 02/25/18 08:00 MCV 86.9 fl (80.0-105.0) 02/25/18 08:00 MCH 27.9 pg (25.0-35.0) 02/25/18 08:00 MCHC 32.1 g/dl (31.0-37.0) 02/25/18 08:00 RDW 13.5 % (11.5-14.5) 02/25/18 08:00 Plt Count 267 10^3/uL (120.0-450.0) 02/25/18 08:00 MPV 9.7 fl (7.0-11.0) 02/25/18 08:00 Gran % 75.2 % (50.0-68.0) H 02/25/18 08:00 Lymph % (Auto) 17.1 % (22.0-35.0) L 02/25/18 08:00 [place] % (Auto) 7.7 % (1.0-6.0) H 02/25/18 08:00 Eos % (Auto) 0.0 % (1.5-5.0) L 02/25/18 08:00 Baso % (Auto) 0.0 % (0.0-3.0) 02/25/18 08:00 Gran # 5.93 (1.4-6.5) 02/25/18 08:00 Lymph # (Auto) 1.4 (1.2-3.4) 02/25/18 08:00 [place] # (Auto) 0.6 (0.1-0.6) 02/25/18 08:00 Eos # (Auto) 0.0 (0.0-0.7) 02/25/18 08:00 Baso # (Auto) 0.00 K/mm3 (0.0-2.0) 02/25/18 08:00 pCO2 41 mm/Hg (35-45) 02/21/18 03:18 pO2 101.0 mm/Hg (80-100) H 02/21/18 03:18 HCO3 25.4 mmol/L (21-28) 02/21/18 03:18 ABG pH 7.40 (7.35-7.45) 02/21/18 03:18 ABG Total CO2 26.7 mmol.L (22-28) 02/21/18 03:18 ABG O2 Saturation 98.4 % (95-98) H 02/21/18 03:18 ABG O2 Content 15.7 ML/dl (15-23) 02/21/18 03:18 ABG Base Excess 0.5 mmol/L (-2.0-3.0) 02/21/18 03:18 ABG Hemoglobin 11.5 g/dL (11.7-17.4) L 02/21/18 03:18 ABG Carboxyhemoglobin 1.5 % (0.5-1.5) 02/21/18 03:18 POC ABG HHb (Measured) 1.6 % (0-5) 02/21/18 03:18 ABG Methemoglobin 0.5 % (0.0-3.0) 02/21/18 03:18 ABG O2 Capacity 16.0 mL/dl (16-24) 02/21/18 03:18 VBG pH 7.38 (7.32-7.43) 02/21/18 02:25 VBG pCO2 45.0 (40-60) 02/21/18 02:25 VBG HCO3 26.6 mmol/l (21-28) 02/21/18 02:25 VBG Total CO2 28.0 mmol.L (22-28) 02/21/18 02:25 VBG O2 Sat (Calc) 97.7 % (40-65) H 02/21/18 02:25 VBG Base Excess 1.0 mmol/L (0.0-2.0) 02/21/18 02:25 VBG Potassium 4.4 mmol/L (3.6-5.2) 02/21/18 02:25 Hgb O2 Saturation 96.3 % (95.0-98.0) 02/21/18 03:18 Sodium 135.0 mmol/L (132-148) 02/21/18 02:25 Chloride 102.0 mmol/L (98-107) 02/21/18 02:25 Glucose 124 mg/dl (75-110) H 02/21/18 02:25 Lactate 0.9 mmol/L (0.7-2.1) 02/21/18 02:25 FiO2 40.0 % 02/21/18 03:18 Sodium 135 mmol/L (132-148) 02/25/18 08:00 Potassium 4.4 mmol/L (3.6-5.0) 02/25/18 08:00 Chloride 101 mmol/L (98-107) 02/25/18 08:00 Carbon Dioxide 25 mmol/L (21-33) 02/25/18 08:00 Anion Gap 14 (10-20) 02/25/18 08:00 BUN 53 mg/dL (7-21) H 02/25/18 08:00 Creatinine 1.8 mg/dl (0.8-1.5) H 02/25/18 08:00 Est GFR ( Amer) 44 02/25/18 08:00 Est GFR (Non-Af Amer) 36 02/25/18 08:00 Random Glucose 131 mg/dL (70-110) H 02/25/18 08:00 Hemoglobin A1c 6.2 % (4.2-6.5) 02/23/18 07:00 Uric Acid 7.6 mg/dL (3.5-8.5) 02/22/18 06:30 Calcium 9.2 mg/dL (8.4-10.5) 02/25/18 08:00 Magnesium 1.7 mg/dL (1.7-2.2) 02/20/18 21:00 Iron 30 ug/dL (45-180) L 02/22/18 06:30 TIBC 201 ug/dL (261-462) L 10/06/18 06:30 % Saturation 15 % (20-55) L 02/22/18 06:30 Ferritin 231.0 ng/mL 02/22/18 06:30 Total Bilirubin 0.4 mg/dL (0.2-1.3) 02/25/18 08:00 AST 29 U/L (17-59) 02/25/18 08:00 ALT 27 U/L (7-56) 02/25/18 08:00 Alkaline Phosphatase 58 U/L (38-126) 02/25/18 08:00 Troponin I 0.02 ng/mL D 02/20/18 21:00 NT-Pro-B Natriuret Pep 1740 pg/mL (0-450) H 02/24/18 12:00 Total Protein 7.5 g/dL (5.8-8.3) 02/25/18 08:00 Albumin 3.5 g/dL (3.0-4.8) 02/25/18 08:00 Globulin 4.0 gm/dL 02/25/18 08:00 Albumin/Globulin Ratio 0.9 (1.1-1.8) L 02/25/18 08:00 Vitamin B12 237 pg/mL (239-931) L 02/23/18 07:00 25-OH Vitamin D Total 27.0 NG/ML (30.0-100.0) L 02/22/18 06:30 Procalcitonin 0.12 NG/ML (0.19-0.49) L 02/23/18 06:30 TSH 3rd Generation 2.21 mIU/mL (0.46-4.68) 02/20/18 21:00 Calcium (PTH Intact) 8.4 mg/dL (8.6-10.3) L 02/22/18 06:30 PTH w/Ion &Tot Calcium 76 pg/mL (14-64) H 02/22/18 06:30 Venous Blood Potassium 4.4 mmol/L (3.6-5.2) 02/21/18 02:25 Urine Color Yellow (YELLOW) 02/21/18 10:55 Urine Appearance Clear (CLEAR) 02/21/18 10:55 Urine pH 6.0 (4.7-8.0) 02/21/18 10:55 Ur Specific [place] 1.025 (1.005-1.035) 02/21/18 10:55 Urine Protein 100 mg/dL (<30 mg/dL) H 02/21/18 10:55 Urine Glucose (UA) Negative mg/dL (NEGATIVE) 02/21/18 10:55 Urine Ketones Negative mg/dL (NEGATIVE) 02/21/18 10:55 Urine Blood Trace-intact (NEGATIVE) H 02/21/18 10:55 Urine Nitrate Negative (NEGATIVE) 02/21/18 10:55 Urine Bilirubin Negative (NEGATIVE) 02/21/18 10:55 Urine Urobilinogen 1.0 E.U./dL (<1 E.U./dL) H 02/21/18 10:55 Ur Leukocyte Esterase Moderate [place]/uL (NEGATIVE) H 02/21/18 10:55 Urine RBC 2 - 5 /hpf (0-2) 02/21/18 10:55 Urine WBC 20 - 25 /hpf (0-6) 02/21/18 10:55 Ur Epithelial Cells 4 - 5 /hpf (0-5) 02/21/18 10:55 Amorphous Sediment Few 02/21/18 10:55 Urine Bacteria Many (NEG) 02/21/18 10:55 Coarse Granular Casts Trace /hpf (0-2) H 02/21/18 10:55 Urine Other [place]yeast 02/21/18 10:55 Ur Random Creatinine 117 mg/dL 02/21/18 17:27 U Random Total Protein Cancelled 02/21/18 17:27 Ur Random Sodium 47 meq/L 02/21/18 17:27 Ur Random Urea Nitrogn 1130 mg/dL 02/21/18 17:27 Urine Creatinine 133 mg/dL (20-370) 02/21/18 17:27 Urine Microalbumin 24.3 mg/dL 02/21/18 17:27 Microalb/Creat Ratio 183 (<30) H 02/21/18 17:27 Ur L.pneumophila Ag Negative (NEGATIVE) 02/21/18 17:27 Mycoplasma pneumon IgM Negative (NEGATIVE) 02/20/18 21:00 Ur Strep pneumoniae Ag Not detected (Not Detected) 02/21/18 17:27 Attending/Attestation - Attestation I have personally seen and examined this patient.: Yes I have fully participated in the care of the patient.: Yes I have reviewed all pertinent clinical information, including history, physical exam and plan: Yes Notes (Text): Clinically much improved, no active complaints will d/c with PO Abx for 5 days
--- NOTE | 2018-02-25 20:32 | CP.PCM.PN ---
Subjective - Date & Time of Evaluation Date of Evaluation: 02/25/18 Time of Evaluation: 12:25 - Subjective Subjective: Comfortable on a chair, no fevers, not in distress. Objective - Vital Signs/Intake and Output Vital Signs (last 24 hours): Temp Pulse Resp BP Pulse Ox 97.4 F L 82 18 111/75 96 02/25/18 14:00 02/25/18 14:00 02/25/18 14:00 02/25/18 14:00 02/25/18 14:00 - Labs Labs: 02/25/18 08:00 02/25/18 08:00 - Constitutional Appears: Chronically Ill - Head Exam Head Exam: NORMAL INSPECTION - Respiratory Exam Respiratory Exam: Decreased Breath Sounds - Cardiovascular Exam Cardiovascular Exam: +S1, +S2 - GI/Abdominal Exam GI & Abdominal Exam: Soft. absent: Tenderness Assessment and Plan - Assessment and Plan (Free Text) Plan: Assessment consider sepsis due to right lower lobe HCAP, clinically improving chronic fibrosis in the lungs HTN COPD osteoarthritis gout benign prostatic hyperplasia history of umbilical hernia repair significant smoking history Plan cultures have been negative - continue Levaquin (day 5 of antibiotics) to complete up to 7 days of total antibiotic therapy; urine Legionella Ag is negative reviewed CXR will continue to monitor clinically
--- NOTE | 2018-02-25 23:03 | PN ---
DATE: 02/25/2018 REFERRING PHYSICIAN: Santiago Collins MD. SUBJECTIVE: The patient is sitting on the chair. Night was unremarkable. is at bedside. Feels better. No cough. Short of breath with exertion. No chest pain. No nausea, vomiting, diarrhea, leg pain or leg swelling. Admit to have snoring at nighttime, daytime sleepy and tired. OBJECTIVE: GENERAL: In no acute distress. VITAL SIGNS: Temperature is 98, heart rate is 82, respiratory rate is 18, blood pressure 111/75, pulse ox 96% room air. HEENT: Moist mucous membrane. Crowded airway. NECK: Supple. No JVD. LUNGS: Have fair airflow with rhonchi. HEART: S1 and S2. ABDOMEN: Soft, nontender, no organomegaly. EXTREMITIES: There is no edema. NEUROLOGIC: Awake, alert. Follows simple commands. MEDICATIONS: Reviewed. Noted no new medication reported since yesterday. LABORATORY DATA: Shows hemoglobin 11.3, hematocrit 35.2, WBC 7.9, platelet count is 267. Sodium 135, potassium 4.4, chloride 101, bicarbonate 25, BUN 53, creatinine 1.8, glucose 131, calcium is 9.2, AST 29, ALT 27, alk phos is 58. Albumin is 3.5. IMPRESSION AND PLAN: Chronic obstructive lung disease, pulmonary fibrosis, history of interstitial infiltrate, hypertension, degenerative joint disease, may have sleep apnea syndrome, history of asbestos exposure in the past, chronic pulmonary infiltrate, hypertension. Pulmonary point of view, doing okay. Being discharged home on tapered dose of steroids and antibiotics. Continue inhaled bronchodilator. Need pulmonary function test upon discharge as an outpatient, attended sleep study. Follow up x-ray to assure the clearance of infiltrate. Santiago Valdez MD
== END 2018-02-25 18:59 | disposition home health service (06) | DRG 541 ==
LOC: ED 19:33 → ERH 02-21 01:17 → 2RNO 02-21 12:40 → 5RSO 02-22 18:40
PROVIDERS: ADMIT Internal Medicine; ATTEND Internal Medicine
PROC: 5A09357 Assistance with Respiratory Ventilation, Less than 24 Consecutive Hours, Continuous Positive Airway Pressure (ICD-10-PCS; principal; 2018-02-22)
DX: J18.9 Pneumonia, unspecified organism (principal); N17.9 Acute kidney failure, unspecified; J44.0 Chronic obstructive pulmonary disease with (acute) lower respiratory infection; J47.0 Bronchiectasis with acute lower respiratory infection; J84.9 Interstitial pulmonary disease, unspecified; E11.22 Type 2 diabetes mellitus with diabetic chronic kidney disease; N18.3 Chronic kidney disease, stage 3 (moderate); I12.9 Hypertensive chronic kidney disease with stage 1 through stage 4 chronic kidney disease, or unspecified chronic kidney disease; D50.9 Iron deficiency anemia, unspecified; J84.10 Pulmonary fibrosis, unspecified; I27.20 Pulmonary hypertension, unspecified; K21.9 Gastro-esophageal reflux disease without esophagitis; H54.61 Unqualified visual loss, right eye, normal vision left eye; G47.30 Sleep apnea, unspecified; N40.1 Benign prostatic hyperplasia with lower urinary tract symptoms; R35.0 Frequency of micturition; Y95 Nosocomial condition; M10.9 Gout, unspecified; M19.90 Unspecified osteoarthritis, unspecified site; Z77.090 Contact with and (suspected) exposure to asbestos; Z87.891 Personal history of nicotine dependence; Z91.19 Patient's noncompliance with other medical treatment and regimen